=== PATIENT | male | born 1935 | race Caucasian/White ===

== ENCOUNTER → 2016-10-13 | Outpatient (CLI) | payer BC ==
[2016-10-13 09:49] LABS: ALT/SGPT 19 U/L (12-78); BLOOD UREA NITROGEN 11 mg/dl (7-18); BUN/CREATININE RATIO 11.3 (10-20); CALCIUM 8.9 mg/dl (8.5-10.1); CARBON DIOXIDE 28 mmol/L (21-32); CHLORIDE 105 mmol/L (98-107); CHOLESTEROL 165 mg/dl (0-200); GLUCOSE 89 mg/dl (70-99); POTASSIUM 3.8 mmol/L (3.5-5.1); SODIUM 142 mmol/L (136-145); TRIGLYCERIDES 59 mg/dl (0-150); VERY LOW DENSITY LIPOPROT CALC 12 mg/dl
[2016-10-13 09:52] LABS: ALB/GLOB RATIO 0.9 (0.9-2); ALKALINE PHOSPHATASE 78 U/L (45-117); AST/SGOT 18 U/L (15-37); CHOLESTEROL/HDL RATIO 2.3; HDL CHOLESTEROL 71 mg/dl; LDL CHOLESTEROL CALCULATED 82 mg/dl
== END | disposition home or self-care (01) ==
LOC: C.LAB1850 07:53
PROVIDERS: ATTEND Family Medicine
DX: I10 Essential (primary) hypertension (principal); E78.5 Hyperlipidemia, unspecified

== ENCOUNTER → 2017-07-21 | Outpatient (CLI) | payer BC ==
[2017-07-21 13:00] LABS: BLOOD UREA NITROGEN 8 mg/dl (7-18); BUN/CREATININE RATIO 8.4 (10-20); CALCIUM 8.8 mg/dl (8.5-10.1); CARBON DIOXIDE 29 mmol/L (21-32); CHLORIDE 106 mmol/L (98-107); CHOLESTEROL 153 mg/dl (0-200); CREATININE 0.99 mg/dl (0.60-1.40); GLUCOSE 88 mg/dl (70-99); POTASSIUM 4.5 mmol/L (3.5-5.1); SODIUM 141 mmol/L (136-145)
[2017-07-21 13:04] LABS: CHOLESTEROL/HDL RATIO 2.4; HDL CHOLESTEROL 64 mg/dl; LDL CHOLESTEROL CALCULATED 77 mg/dl; TRIGLYCERIDES 58 mg/dl (0-150); VERY LOW DENSITY LIPOPROT CALC 12 mg/dl
== END | disposition home or self-care (01) ==
LOC: C.LABBFT 07:43
PROVIDERS: ATTEND Family Medicine
DX: E78.5 Hyperlipidemia, unspecified (principal)

== ENCOUNTER → 2018-04-07 | Outpatient (CLI) | payer BC ==
[2018-04-07 13:06] LABS: ALBUMIN 3.4 gm/dl (3.4-5.0); ALKALINE PHOSPHATASE 69 U/L (45-117); ALT/SGPT 20 U/L (12-78); AST/SGOT 19 U/L (15-37); BLOOD UREA NITROGEN 13 mg/dl (7-18); CARBON DIOXIDE 29 mmol/L (21-32); CHOLESTEROL 147 mg/dl (0-200); CREATININE 0.98 mg/dl (0.60-1.40); GLUCOSE 81 mg/dl (70-99); LDL CHOLESTEROL CALCULATED 76 mg/dl; POTASSIUM 3.8 mmol/L (3.5-5.1); SODIUM 141 mmol/L (136-145); TOTAL PROTEIN 6.9 gm/dl (6.4-8.2)
== END | disposition home or self-care (01) ==
LOC: C.LABBFT 07:37
PROVIDERS: ATTEND Family Medicine
DX: Z00.00 Encounter for general adult medical examination without abnormal findings (principal)

== ENCOUNTER 2019-09-04 09:47 | Inpatient (IN) ==
[2019-09-04] MEDS ORDERED: ONDANSETRON INJ 2 MG/ML 2 ML VIAL IV STA (10:03)
[2019-09-04] MEDS ORDERED: SODIUM CHLORIDE 0.9% 1000ML 1,000 ML IV SCH (10:15)
--- NOTE | 2019-09-04 10:30 | Emergency Department Note ---
Entered by Pete Bobo acting as a scribe for Zane Danielson DO History of Present Illness General Chief complaint: Vomiting Stated complaint: VOMITING Time Seen by Provider: 09/04/19 10:00 Source: patient History of Present Illness Provider complaint: Vomiting Onset (ago): day(s) 1 Location: abdomen Severity: similar to prior episodes Pain Consistency: + intermittent Maximum Pain Intensity: 0 Relieved By: + none Associated symptoms: + loss of appetite and + nausea/vomiting; no chest pain, no fever/chills, no headaches and no shortness of breath The patient is an 83 year old male who presents to the Emergency Room with complaints of intermittent vomiting that started last night. The patient states the last episode occurred about a half hour before arrival. The patient reports that he has been having GI issues for the past couple of months and is complaining of abdominal pain at this time. The patient adds that he has not had much of an appetite and has had slight trouble swallowing. The patient states that he has not been able to have a colonoscopy due to recently being diagnosed with a LBBB. The patient denies any headache, chest pains, or shortness of breath. The patient does not have any cancer history. 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 0.5 mg-aleksandra-Zn tablet ascorbic acid (vitamin C) 500 mg 1 gm PO QAM tab 06/15/19 09/04/19 History tablet ykrwjzae-kxs-srpki acid 0.4 1 tab PO QAM tab 06/15/19 09/04/19 History mg-lycopene 300 mcg-lutein 250 mcg tablet omega-3 fatty acids 1,000 mg 1,000 mg PO DAILY cap 06/15/19 09/04/19 History capsule simvastatin 10 mg tablet 10 mg PO QPM #90 tab 06/25/19 09/04/19 Rx CPAP Machine #1 ea 07/13/19 08/13/19 Rx ondansetron HCl 4 mg tablet 4 mg PO QID PRN #20 tab 08/13/19 09/04/19 Rx triamterene-hydrochlorothiazid 0.5 tab PO QAM 09/04/19 09/04/19 History Allergies Allergy/AdvReac Type Severity Reaction Status Date / Time No Known Drug Allergies Allergy Verified 08/13/19 11:24 Past Med/Surg History Medical History Basal cell carcinoma Carpal tunnel syndrome Diverticulosis Surgical History H/O carpal tunnel repair S/P tonsillectomy Family History Father Cancer Social History Preferred Language: Armenian Communication Ability: Effective 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 and A total of 10 systems reviewed and were otherwise negative Physical Exam Vital Signs Vital Signs - 24 hr 09/04/19 09:54 Temperature 36.4 C L Temperature Source Oral Pulse Rate 97 H Respiratory Rate 20 Respiratory Effort / Characteristics Non-Labored Respiratory Depth Normal Respiratory Pattern Regular Blood Pressure 118/72 Blood Pressure Mean 87 Blood Pressure Position Sitting Pulse Oximetry 98 Oxygen Delivery Method Room Air Sepsis Recent Fever Within 48 Hours No Sepsis New/Unexplained Change in Mental Status No Sepsis Action Taken by Nursing No Action Required GENERAL: Patient is awake alert in no acute distress patient is resting comfortably and showing no signs of anxiety EYES: The conjunctivae are clear. The pupils are round and reactive. EARS, NOSE, MOUTH AND THROAT: The nose is without any evidence of any deformity. Mucous membranes are moist. Tongue is midline. NECK: The neck is nontender and supple. RESPIRATORY: Normal respiratory effort is noted there is no evidence of wheezing rhonchi or rales CARDIOVASCULAR: Regular rate and rhythm noted there no murmurs rubs or gallops normal S1 normal S2. GASTROINTESTINAL: The abdomen is mildly distended but soft. There is epigastric pain to palpation which is moderate. MUSCULOSKELETAL/EXTREMITIES: There is no evidence of gross deformity full range of motion is noted in the hips and shoulders. SKIN: There is no obvious evidence of any rash. There are no petechiae, pallor or cyanosis noted. NEUROLOGIC: Patient is awake alert and oriented x3. Course Course 1001: Past medical records reviewed. The patient was evaluated in room C08, and a complete history and physical examination were performed. 1210: I reevaluated the patient and he is resting in bed. I ordered an NG tube. 1212: I spoke to Dr. Juancarlos Palomo [facility] Hospitalist about the patient's case. She agreed to accept the patient for further evaluation. 1216: I spoke to Dr. Ivania NICHOLE about the patient's case. He agreed to be on consult. Consultations Consultation #1: I spoke to Dr. Juancarlos Palomo [facility] Hospitalist about the patient's case. She agreed to accept the patient for further evaluation. Time: 12:12 Consultation #2: I spoke to Dr. Ivania NICHOLE about the patient's case. He agreed to be on consult. Time: 12:16 Administered Medications Lactated Ringer's (Lr) 1,000 mls @ 80 mls/hr IV .[id number] MAYNOR Stop: 09/05/19 15:26 Last Infusion: 09/04/19 15:21 Dose: 0 mls/hr Documented by: [id number] Admin: 09/04/19 14:59 Dose: 80 mls/hr Documented by: [id number] Ioversol (Optiray 320 100ml) 93 ml IV ONCE PRN PRN Reason: Interaction Checking Stop: 09/08/19 11:35 Last Admin: 09/04/19 11:36 Dose: 93 ml Documented by: [id number] Discontinued Medications Sodium Chloride (Nss 1000ml) 1,000 mls @ 999 mls/hr IV .[id number] MAYNOR Stop: 09/04/19 11:15 Last Infusion: 09/04/19 11:47 Dose: 0 mls/hr Documented by: [id number] Admin: 09/04/19 10:23 Dose: 999 mls/hr Documented by: [id number] Famotidine (Pepcid 20mg Iv Push) 20 mg in 5 mls @ 2.5 mls/min IV NOW STA Stop: 09/04/19 12:18 Last Admin: 09/04/19 12:54 Dose: 2.5 mls/min Documented by: [id number] Piperacillin Sod/Tazobactam Sod (Zosyn) 4.5 gm in 120 mls @ 240 mls/hr IV NOW ONE Stop: 09/04/19 12:46 Last Infusion: 09/04/19 13:30 Dose: 0 mls/hr Documented by: [id number] Admin: 09/04/19 12:54 Dose: 240 mls/hr Documented by: [id number] Ondansetron HCl (Zofran) 4 mg IV NOW STA Stop: 09/04/19 10:04 Last Admin: 09/04/19 10:23 Dose: 4 mg Documented by: [id number] Medical Decision Making Differential Diagnosis Differential diagnoses includes but is not limited to gastritis, peptic ulcer disease, GERD, gallbladder disease, pancreatitis, small bowel obstruction, acute coronary syndrome, pericarditis, ischemic bowel, irritable bowel disease, irritable bowel syndrome, appendicitis, diverticulitis, malignancy, hernia, urinary tract infection, torsion, perforation, trauma, infectious. Medical Records Attestation: I reviewed the patient's medical records. Home Medications Current Medication List: was personally reviewed by me Laboratory Data Attestation: I reviewed the patient's lab results. Result diagrams: 09/04/19 10:20 09/04/19 10:20 Lab Results 09/04/19 09/04/19 09/04/19 Range/Units 10:20 10:20 10:20 WBC 10.28 (4.8-10.8) K/uL RBC 3.97 L (4.7-6.1) M/uL Hgb 12.1 L (14.0-18.0) g/dL Hct 36.4 L (42-52) % MCV 91.7 (80-100) fL MCH 30.5 (25-34) pg MCHC 33.2 (32-36) g/dL RDW Std Deviation 48.0 H (36.4-46.3) fL RDW Coeff of Vineet 14.2 (11.5-14.5) % Plt Count 321 (130-400) K/uL MPV 10.1 (7.4-10.4) fL Immature Gran % (Auto) 0.3 % Neut % (Auto) 73.8 % Lymph % (Auto) 15.1 % [place] % (Auto) 10.2 % Eos % (Auto) 0.4 % Baso % (Auto) 0.2 % Immature Gran # (Auto) 0.03 H (0.00-0.02) K/uL Neut # (Auto) 7.59 H (1.4-6.5) K/uL Lymph # (Auto) 1.55 (1.2-3.4) K/uL [place] # (Auto) 1.05 H (0.11-0.59) K/uL Eos # (Auto) 0.04 (0-0.5) K/uL Baso # (Auto) 0.02 (0-0.2) K/uL PT 10.9 (9.0-12.0) Seconds INR 1.1 (0.9-1.1) APTT 23.9 (21.0-31.0) Seconds PTT Ratio 0.9 Sodium 137 (136-145) mmol/L Potassium 3.6 (3.5-5.1) mmol/L Chloride 104 (98-107) mmol/L Carbon Dioxide 28 (21-32) mmol/L Anion Gap 5.0 (3-11) BUN 11 (7-18) mg/dl Creatinine 0.91 (0.6-1.4) mg/dl Est Cr Clr Drug Dosing 65.5 ml/min Est GFR ( Amer) 90.0 Est GFR (Non-Af Amer) 77.7 BUN/Creatinine Ratio 12.1 (10-20) Glucose 103 H (70-99) mg/dl Lactate (0.4-2.0) mmol/L Calcium 8.5 (8.5-10.1) mg/dl Phosphorus (2.5-4.9) mg/dl Magnesium (1.8-2.4) mg/dl Total Bilirubin 0.4 (0.2-1) mg/dl AST 13 L (15-37) U/L ALT 15 (12-78) U/L Alkaline Phosphatase 75 (45-117) U/L Troponin I < 0.015 (0-0.045) ng/ml Total Protein 7.2 (6.4-8.2) gm/dl Albumin 2.4 L (3.4-5.0) gm/dl Globulin 4.8 H (2.5-4.0) gm/dl Albumin/Globulin Ratio 0.5 L (0.9-2) Lipase 99 (73-393) U/L 09/04/19 09/04/19 Range/Units 10:20 10:20 WBC (4.8-10.8) K/uL RBC (4.7-6.1) M/uL Hgb (14.0-18.0) g/dL Hct (42-52) % MCV (80-100) fL MCH (25-34) pg MCHC (32-36) g/dL RDW Std Deviation (36.4-46.3) fL RDW Coeff of Vineet (11.5-14.5) % Plt Count (130-400) K/uL MPV (7.4-10.4) fL Immature Gran % (Auto) % Neut % (Auto) % Lymph % (Auto) % [place] % (Auto) % Eos % (Auto) % Baso % (Auto) % Immature Gran # (Auto) (0.00-0.02) K/uL Neut # (Auto) (1.4-6.5) K/uL Lymph # (Auto) (1.2-3.4) K/uL [place] # (Auto) (0.11-0.59) K/uL Eos # (Auto) (0-0.5) K/uL Baso # (Auto) (0-0.2) K/uL PT (9.0-12.0) Seconds INR (0.9-1.1) APTT (21.0-31.0) Seconds PTT Ratio Sodium (136-145) mmol/L Potassium (3.5-5.1) mmol/L Chloride (98-107) mmol/L Carbon Dioxide (21-32) mmol/L Anion Gap (3-11) BUN (7-18) mg/dl Creatinine (0.6-1.4) mg/dl Est Cr Clr Drug Dosing ml/min Est GFR ( Amer) Est GFR (Non-Af Amer) BUN/Creatinine Ratio (10-20) Glucose (70-99) mg/dl Lactate 1.0 (0.4-2.0) mmol/L Calcium (8.5-10.1) mg/dl Phosphorus 3.5 (2.5-4.9) mg/dl Magnesium 2.0 (1.8-2.4) mg/dl Total Bilirubin (0.2-1) mg/dl AST (15-37) U/L ALT (12-78) U/L Alkaline Phosphatase (45-117) U/L Troponin I (0-0.045) ng/ml Total Protein (6.4-8.2) gm/dl Albumin (3.4-5.0) gm/dl Globulin (2.5-4.0) gm/dl Albumin/Globulin Ratio (0.9-2) Lipase (73-393) U/L Imaging Data Radiologist's Impression: Radiology results as stated below per my review and the radiologist's interpretation: XR chest 1V portable CLINICAL HISTORY: pain dyspnea COMPARISON STUDY: 03/13/2019 FINDINGS: Mild stable cardiomegaly. Diaphragms are smooth. Lungs are considered clear. There is a component of emphysematous change. IMPRESSION: Chronic and emphysematous change. No acute process. ACT 112: Negative or not required by law. The above report was generated using voice recognition software. It may contain grammatical, syntax or spelling errors. Electronically signed by: Alber Smart M.D. 09/04/2019 10:[address] abd pelvis IV con only CT DOSE: 630.68 mGy.cm HISTORY: Nausea. Vomiting. vomiting TECHNIQUE: Multiaxial CT images of the abdomen and pelvis were performed following the use of intravenous contrast. A dose lowering technique was utilized adhering to the principles of ALARA. COMPARISON STUDY: 03/30/2019 FINDINGS: Lung bases are considered clear. The liver spleen and pancreas appear unremarkable. There are several scattered calcified granulomas throughout both liver as well as spleen. Considerable distention of the stomach. This appears to relate to what is potentially soft tissue mass-like changes involving the gastric antrum and/or proximal aspect descending aspect of the duodenal sweep. Peptic ulcer disease is considered. There is also suggestion of a 3 mm calculus distal aspect, bile duct. Findings of progressive infiltrative change of the fat surrounding the duodenal bulb. There is a possibility this represents progressive duodenitis. Endoscopic evaluation is suggested. Moderate atrophy of the pancreas. Bowel pattern overall is considered nonobstructive. Generalized atherosclerotic change and ectasia of the abdominal aorta as well as iliac vasculature considered similar. Mild chronic bladder wall thickening. The pelvic bowel pattern is considered nonobstructive. No evidence for abscess collection or obstructive change within that region. IMPRESSION: 1. Gastric distention slightly increased from the prior study. 2. Soft tissue prominence as well as some progressive periduodenal infiltrative change raising the possibility of progressive duodenitis versus possibility of a neoplastic and/or obstructing type process. 3. Potential 3 mm calculus distal common bile duct consistent with choledocholithiasis. 4. Endoscopic evaluation of the upper gastrointestinal tract is suggested. MRCP may also be of initial diagnostic assistance. ACT 112: Negative or not required by law. The above report was generated using voice recognition software. It may contain grammatical, syntax or spelling errors. Electronically signed by: Alber Smart M.D. 09/04/2019 11:57 AM ECG Data Attestation: I personally reviewed and interpreted this ECG as follows: Indication: + abdominal pain Rate (beats per minute): 85 Rhythm: + sinus rhythm ECG Intervals/blocks: + Left bundle branch block ECG Findings: + PACs Comparison ECG Date: no prior available Blood Pressure Blood Pressure Findings: Low blood pressure Blood Pressure Disposition: further management by hospitalist MDM Narrative The patient is an 83-year-old male who presented to the emergency department for upper abdominal complaints. The patient has had nausea and vomiting. He is also had very significant weight loss over the last [address] ates that he lost approximately 40 pounds. He was seen by his primary care physician and was scheduled for a GI work-up but unfortunately the patient has an abnormal EKG so he required further cardiac work-up prior to GI work-up. He presents emergency department today with worsening symptoms of upper abdominal pain as well as nausea vomiting. I discussed patient's laboratory and radiographic studies with him. He was treated with IV fluids and IV antiemetics. He was found to have signs of possible gastric outlet obstruction with a proximal small bowel mass versus inflammation. He was treated with IV antibiotics and IV H2 blockers. An NG tube was placed with a significant amount of return. I discussed his case with the on-call [facility] hospitalist group as well as the patient's primary GI physician. They have agreed to evaluate the patient in the emergency department for further management and disposition. Impression & Plan Gastric outlet obstruction, Small bowel mass, Vomiting Discharge Plan Visit Data *Final* Discharge Date/Time: 09/04/19 14:01 Chief Complaint: Vomiting Stated Complaint: VOMITING ED Provider: Zane Danielson Discharge Problem: Gastric outlet obstruction, Small bowel mass, Vomiting Patient Disposition: Admitted As Inpatient Discharge Instructions Interventions: ED Discharge Assessment Last Done: 09/04/19 14:01 Discharge Problem: Vomiting Qualifiers: Vomiting type: unspecified Vomiting Intractability: non-intractable Nausea presence: with nausea Qualified Code(s): R11.2 - Nausea with vomiting, unspecified The scribe's documentation has been prepared under my direction and personally reviewed by me in its entirety. I confirm that the note above accurately reflects all work, treatment, procedures, and medical decision making performed by me.
[2019-09-04 10:32] LABS: Basophils # (auto) 0.02 K/uL (0-0.2); Basophils % (auto) 0.2 %; Eosinophils # (auto) 0.04 K/uL (0-0.5); Eosinophils % (auto) 0.4 %; Hematocrit (blood only) 36.4 % (42-52); Hemoglobin 12.1 g/dL (14.0-18.0); Immature Granulocytes # (auto) 0.03 K/uL (0.00-0.02); Immature Granulocytes % (auto) 0.3 %; Lymphocytes # (auto) 1.55 K/uL (1.2-3.4); Lymphocytes % (auto) 15.1 %; Mean Corpuscular Hemoglobin 30.5 pg (25-34); Mean Corpuscular Hgb Conc 33.2 g/dL (32-36); Mean Corpuscular Volume 91.7 fL (80-100); Mean Platelet Volume 10.1 fL (7.4-10.4); Monocytes # (auto) 1.05 K/uL (0.11-0.59); Monocytes % (auto) 10.2 %; Neutrophils # (auto) 7.59 K/uL (1.4-6.5); Neutrophils % (auto) 73.8 %; Platelet Count 321 K/uL (130-400); RDW Coefficient of Variation 14.2 % (11.5-14.5); Red Blood Count 3.97 M/uL (4.7-6.1); White Blood Count 10.28 K/uL (4.8-10.8)
--- NOTE | 2019-09-04 10:37 | XRay Report ---
XR chest 1V portable CLINICAL HISTORY: pain dyspnea COMPARISON STUDY: 03/13/2019 FINDINGS: Mild stable cardiomegaly. Diaphragms are smooth. Lungs are considered clear. There is a com ponent of emphysematous change. IMPRESSION: Chronic and emphysematous change. No acute process. ACT 112: Negative or not required by law. The above report was generated using voice recognition software. It may contain grammatical, syntax or spelling errors. Electronically signed by: Alber Smart M.D. 09/04/2019 10:36 AM
[2019-09-04 10:49] LABS: INR 1.1 (0.9-1.1); Partial Thromboplastin Ratio 0.9; Partial Thromboplastin Time 23.9 Seconds (21.0-31.0); Prothrombin Time 10.9 Seconds (9.0-12.0)
[2019-09-04 10:51] LABS: Alanine Aminotransferase 15 U/L (12-78); Albumin Level 2.4 gm/dl (3.4-5.0); Aspartate Aminotransferase 13 U/L (15-37); BUN Creatinine Ratio 12.1 (10-20); Blood Urea Nitrogen 11 mg/dl (7-18); Calcium 8.5 mg/dl (8.5-10.1); Carbon Dioxide 28 mmol/L (21-32); Chloride 104 mmol/L (98-107); Creatinine Clr Calc Pharmacy 65.5 ml/min; Est GFR (Non-African American) 77.7; Glucose 103 mg/dl (70-99); Lipase 99 U/L (73-393); Potassium 3.6 mmol/L (3.5-5.1); Sodium 137 mmol/L (136-145)
[2019-09-04 10:56] LABS: Albumin Globulin Ratio 0.5 (0.9-2); Alkaline Phosphatase 75 U/L (45-117); Bilirubin,Total 0.4 mg/dl (0.2-1); Globulin 4.8 gm/dl (2.5-4.0); Total Protein 7.2 gm/dl (6.4-8.2); Troponin I < 0.015 ng/ml (0-0.045)
[2019-09-04] MEDS ORDERED: IOVERSOL 100ml IV PRN (11:36)
--- NOTE | 2019-09-04 11:58 | CT Scan Report ---
CT abd pelvis IV con only CT DOSE: 630.68 mGy.cm HISTORY: Nausea. Vomiting. vomiting TECHNIQUE: Multiaxial CT images of the abdomen and pelvis were performed following the use of intrave nous contrast. A dose lowering technique was utilized adhering to the principles of ALARA. COMPARISON STUDY: 03/30/2019 FINDINGS: Lung bases are considered clear. The liver spleen and pancreas appear unremarkable. There a re several scattered calcified granulomas throughout both liver as well as spleen. Considerable distention of the stomach. This appears to relate to what is potentially soft tissue mas s-like changes involving the gastric antrum and/or proximal aspect descending aspect of the duodenal sweep. Peptic ulcer disease is considered. There is also suggestion of a 3 mm calculus distal aspect, bile duct. Findings of progressive infiltrative change of the fat surrounding the duodenal bulb. There is a poss ibility this represents progressive duodenitis. Endoscopic evaluation is suggested. Moderate atrophy of the pancreas. Bowel pattern overall is considered nonobstructive. Generalized atherosclerotic change and ectasia of the abdominal aorta as well as iliac vasculature co nsidered similar. Mild chronic bladder wall thickening. The pelvic bowel pattern is considered nonobs tructive. No evidence for abscess collection or obstructive change within that region. IMPRESSION: 1. Gastric distention slightly increased from the prior study. 2. Soft tissue prominence as well as some progressive periduodenal infiltrative change raising the po ssibility of progressive duodenitis versus possibility of a neoplastic and/or obstructing type proces s. 3. Potential 3 mm calculus distal common bile duct consistent with choledocholithiasis. 4. Endoscopic evaluation of the upper gastrointestinal tract is suggested. MRCP may also be of initia l diagnostic assistance. ACT 112: Negative or not required by law. The above report was generated using voice recognition software. It may contain grammatical, syntax or spelling errors. Electronically signed by: Alber Smart M.D. 09/04/2019 11:57 AM
[2019-09-04] MEDS ORDERED: FAMOTIDINE 20MG IV PUSH 20 MG/5 ML SYR IV STA (12:17)
[2019-09-04] MEDS ORDERED: PIPERACILLIN/TAZOBACTAM 4.5 GM/120 ML BAG IV ONE (12:17)
[2019-09-04] MEDS ORDERED: PIPERACILL/TAZOBAC CONSULT ACTIVE PRN (12:17)
--- NOTE | 2019-09-04 13:14 | History & Physical Report ---
Date of Service September 04, 2019 Assessment & Plan (1) Gastric outlet obstruction: 83-year-old male presenting with 2 to 3 months of dysphasia to solids, nausea/vomiting postprandial as well as a 40 to [address] of the abdomen revealed gastric distention as well as a soft tissue prominence causing obstruction in the duodenum concerning for duodenitis versus neoplastic process. Admit to medical floor N.p.o. NG tube to low intermittent suction for gastric decompression Aspiration precautions Protonix 40 mg IV twice daily Gastroenterology consultation appreciated Plan for EGD in a.m. in the operating room with intubation for airway protection Present on Admission?: Yes (2) Dysphagia: Most likely secondary to gastric/duodenal obstruction from mass/inflammation or ulcer as described above. N.p.o. for now Aspiration precautions NG tube to low intermittent suction EGD for the a.m. (3) Choledocholithiasis: MRCP performed which showed cholelithiasis with choledocholithiasis and extrahepatic biliary ductal dilatation. No definite duodenal or pancreatic mass. Patient is afebrile, hemodynamically stable, nontoxic in appearance. No leukocytosis, LFTs are within normal range without suggestion of obstruction. Abdominal exam is benign. GI consultation as above EGD for a.m. Repeat LFTs with a.m. labs Present on Admission?: Yes (4) HTN (hypertension): Blood pressure stable. Presently 131/59. Will hold triamterene/HCTZ for now Continue to monitor blood pressure Present on Admission?: Yes (5) SRIKANTH (obstructive sleep apnea): Chronic. Stable. CPAP nightly Present on Admission?: Yes (6) Anemia: Patient with normochromic/normocytic anemia with Hgb = 12.1, HCT = 36.4. Possibly secondary to underlying GI process Continue to monitor CBC in a.m. (7) Hyperlipidemia: Chronic. Will hold simvastatin and omega-3 for now F/E/NLR at 80 mL/h x 2 bags, electrolytes within normal range, n.p.o. for now ProphylaxisProtonix 40 mg IV twice daily, SCDs to bilateral lower extremities. No chemoprophylaxis for now as patient to have procedure tomorrow [place] per discussion with patient Dispositionadmit to medical floor History of Present Illness Chief Complaint: Abdominal pain Primary Care Provider: Annia Dyer MD Alber Guzmán is a pleasant 83-year-old male with history of hypertension/hyperlipidemia/diverticulosis presenting today with abdominal pain/nausea/vomiting. Patient's complaints have been ongoing for the last 2 to 3 months with dysphagia to solids as well as frequent postprandial vomiting and regurgitation of undigested food. He reports a weight loss of approximately 40 - 50 pounds over the last 3 months. He had a Cologuard that was recently positive and was scheduled to have a colonoscopy performed by Dr. Redd on September 07. He denies any melena or hematochezia. Denies hematemesis. He reports occasionally feeling an area of fullness and firmness in his abdomen. Today he presents with bandlike pain across his upper abdomen as well as bloating. He has been unable to tolerate oral intake. He also complains of constipation and food tasting differently. No complaints of chest pain/shortness of breath/fever/chills/diarrhea. Last colonoscopy was in 2007 with polyp removal. ER course: Pepcid, Zofran, Zosyn, normal saline Allergies Allergy/AdvReac Type Severity Reaction Status Date / Time No Known Drug Allergies Allergy Verified 08/13/19 11:24 Home Medications Home Medications Medication Instructions Recorded Confirmed Type calcium carb 300 mg-D3 800 1 - 2 tab PO AMPM tab 06/13/19 09/04/19 History unit-mag ox 25 mg-copy coordinator 0.5 mg-aleksandra-Zn tablet ascorbic acid (vitamin C) 500 mg 1 gm PO QAM tab 06/15/19 09/04/19 History tablet tmixligu-gxj-fsiat acid 0.4 1 tab PO QAM tab 06/15/19 09/04/19 History mg-lycopene 300 mcg-lutein 250 mcg tablet omega-3 fatty acids 1,000 mg 1,000 mg PO DAILY cap 06/15/19 09/04/19 History capsule simvastatin 10 mg tablet 10 mg PO QPM #90 tab 06/25/19 09/04/19 Rx CPAP Machine #1 ea 07/13/19 08/13/19 Rx ondansetron HCl 4 mg tablet 4 mg PO QID PRN #20 tab 08/13/19 09/04/19 Rx triamterene-hydrochlorothiazid 0.5 tab PO QAM 09/04/19 09/04/19 History Past Med/Surg History Family History Father Cancer Social History Preferred Language: Greek Communication Ability: Effective Brake [employer] Required: No Beliefs That Will Affect Care: None marital status: Current Living Situation: Spouse current occupational status: retired Other Information That Helps Us Care for You: No Feels Safe at Home: Yes Safety Concerns: Feels Safe At This Time Smoking Status: Former smoker Do You Dip or Chew Tobacco: No ; Second Hand Exposure: No ; Tobacco Cessation Education Requested by Patient: No Hx Alcohol Use: No Hx Substance Use: No Seatbelt Use: always Review of Systems Review of Systems: All systems reviewed & are unremarkable except as noted in HPI & below Physical Exam Physical Exam: General: patient resting comfortably, NAD, non-toxic in appearance, AA&O x 4 Skin: warm, dry, intact, no rashes or lesions HEENT: NC/AT, PERRL, EOMI, anicteric sclera, conjunctiva without injection, external ear normal to inspection and nontender, nares patent, moist mucus membranes, dentition intact, no oropharyngeal lesions, neck supple, trachea midline, no LAD, no thyromegaly, no JVD, NG tube in place to low intermittent suction with one filled canister of liquid output Heart: +S1/S2, regular with frequent ectopy, no m/r/g Lungs: equal air entry bilaterally, no rales/rhonchi/wheezes Abd: +BS, soft, NT/ND, no masses/organomegaly/ascites Ext: warm, 2+ pulses in UE/LE bilaterally, no clubbing/cyanosis, trace pitting edema of bilateral lower extremities Neuro: nonfocal, patient AA&O x 4, speech intact, no facial droop, moving all extremities on command with equal strength 5/5 Results & Data Vital Signs (Past 12 Hours) Vital Signs Temp Pulse Resp BP Pulse Ox 09/04/19 09:54 36.4 C L 97 H 20 118/72 98 Laboratory Results Lab Results 09/04/19 09/04/19 09/04/19 Range/Units 10:20 10:20 10:20 WBC 10.28 (4.8-10.8) K/uL RBC 3.97 L (4.7-6.1) M/uL Hgb 12.1 L (14.0-18.0) g/dL Hct 36.4 L (42-52) % MCV 91.7 (80-100) fL MCH 30.5 (25-34) pg MCHC 33.2 (32-36) g/dL RDW Std Deviation 48.0 H (36.4-46.3) fL RDW Coeff of Vineet 14.2 (11.5-14.5) % Plt Count 321 (130-400) K/uL MPV 10.1 (7.4-10.4) fL Immature Gran % (Auto) 0.3 % Neut % (Auto) 73.8 % Lymph % (Auto) 15.1 % Butler % (Auto) 10.2 % Eos % (Auto) 0.4 % Baso % (Auto) 0.2 % Immature Gran # (Auto) 0.03 H (0.00-0.02) K/uL Neut # (Auto) 7.59 H (1.4-6.5) K/uL Lymph # (Auto) 1.55 (1.2-3.4) K/uL Butler # (Auto) 1.05 H (0.11-0.59) K/uL Eos # (Auto) 0.04 (0-0.5) K/uL Baso # (Auto) 0.02 (0-0.2) K/uL PT 10.9 (9.0-12.0) Seconds INR 1.1 (0.9-1.1) APTT 23.9 (21.0-31.0) Seconds PTT Ratio 0.9 Sodium 137 (136-145) mmol/L Potassium 3.6 (3.5-5.1) mmol/L Chloride 104 (98-107) mmol/L Carbon Dioxide 28 (21-32) mmol/L Anion Gap 5.0 (3-11) BUN 11 (7-18) mg/dl Creatinine 0.91 (0.6-1.4) mg/dl Est Cr Clr Drug Dosing 65.5 ml/min Est GFR ( Amer) 90.0 Est GFR (Non-Af Amer) 77.7 BUN/Creatinine Ratio 12.1 (10-20) Glucose 103 H (70-99) mg/dl Lactate (0.4-2.0) mmol/L Calcium 8.5 (8.5-10.1) mg/dl Phosphorus (2.5-4.9) mg/dl Magnesium (1.8-2.4) mg/dl Total Bilirubin 0.4 (0.2-1) mg/dl AST 13 L (15-37) U/L ALT 15 (12-78) U/L Alkaline Phosphatase 75 (45-117) U/L Troponin I < 0.015 (0-0.045) ng/ml Total Protein 7.2 (6.4-8.2) gm/dl Albumin 2.4 L (3.4-5.0) gm/dl Globulin 4.8 H (2.5-4.0) gm/dl Albumin/Globulin Ratio 0.5 L (0.9-2) Lipase 99 (73-393) U/L 09/04/19 09/04/19 Range/Units 10:20 10:20 WBC (4.8-10.8) K/uL RBC (4.7-6.1) M/uL Hgb (14.0-18.0) g/dL Hct (42-52) % MCV (80-100) fL MCH (25-34) pg MCHC (32-36) g/dL RDW Std Deviation (36.4-46.3) fL RDW Coeff of Vineet (11.5-14.5) % Plt Count (130-400) K/uL MPV (7.4-10.4) fL Immature Gran % (Auto) % Neut % (Auto) % Lymph % (Auto) % Butler % (Auto) % Eos % (Auto) % Baso % (Auto) % Immature Gran # (Auto) (0.00-0.02) K/uL Neut # (Auto) (1.4-6.5) K/uL Lymph # (Auto) (1.2-3.4) K/uL Butler # (Auto) (0.11-0.59) K/uL Eos # (Auto) (0-0.5) K/uL Baso # (Auto) (0-0.2) K/uL PT (9.0-12.0) Seconds INR (0.9-1.1) APTT (21.0-31.0) Seconds PTT Ratio Sodium (136-145) mmol/L Potassium (3.5-5.1) mmol/L Chloride (98-107) mmol/L Carbon Dioxide (21-32) mmol/L Anion Gap (3-11) BUN (7-18) mg/dl Creatinine (0.6-1.4) mg/dl Est Cr Clr Drug Dosing ml/min Est GFR ( Amer) Est GFR (Non-Af Amer) BUN/Creatinine Ratio (10-20) Glucose (70-99) mg/dl Lactate 1.0 (0.4-2.0) mmol/L Calcium (8.5-10.1) mg/dl Phosphorus 3.5 (2.5-4.9) mg/dl Magnesium 2.0 (1.8-2.4) mg/dl Total Bilirubin (0.2-1) mg/dl AST (15-37) U/L ALT (12-78) U/L Alkaline Phosphatase (45-117) U/L Troponin I (0-0.045) ng/ml Total Protein (6.4-8.2) gm/dl Albumin (3.4-5.0) gm/dl Globulin (2.5-4.0) gm/dl Albumin/Globulin Ratio (0.9-2) Lipase (73-393) U/L Diagnostic Findings CT abd pelvis IV con only CT DOSE: 630.68 mGy.cm HISTORY: Nausea. Vomiting. vomiting TECHNIQUE: Multiaxial CT images of the abdomen and pelvis were performed following the use of intravenous contrast. A dose lowering technique was utilized adhering to the principles of ALARA. COMPARISON STUDY: 03/30/2019 FINDINGS: Lung bases are considered clear. The liver spleen and pancreas appear unremarkable. There are several scattered calcified granulomas throughout both liver as well as spleen. Considerable distention of the stomach. This appears to relate to what is potentially soft tissue mass-like changes involving the gastric antrum and/or proximal aspect descending aspect of the duodenal sweep. Peptic ulcer disease is considered. There is also suggestion of a 3 mm calculus distal aspect, bile duct. Findings of progressive infiltrative change of the fat surrounding the duodenal bulb. There is a possibility this represents progressive duodenitis. Endoscopic evaluation is suggested. Moderate atrophy of the pancreas. Bowel pattern overall is considered nonobstructive. Generalized atherosclerotic change and ectasia of the abdominal aorta as well as iliac vasculature considered similar. Mild chronic bladder wall thickening. The pelvic bowel pattern is considered nonobstructive. No evidence for abscess collection or obstructive change within that region. IMPRESSION: 1. Gastric distention slightly increased from the prior study. 2. Soft tissue prominence as well as some progressive periduodenal infiltrative change raising the possibility of progressive duodenitis versus possibility of a neoplastic and/or obstructing type process. 3. Potential 3 mm calculus distal common bile duct consistent with choledocholithiasis. 4. Endoscopic evaluation of the upper gastrointestinal tract is suggested. MRCP may also be of initial diagnostic assistance. ACT 112: Negative or not required by law. The above report was generated using voice recognition software. It may contain grammatical, syntax or spelling errors. Electronically signed by: Alber Smart M.D. 09/04/2019 11:57 AM Dictated: 09/04/19 1144 Transcribed: 09/04/19 1144 XR chest 1V portable CLINICAL HISTORY: pain dyspnea COMPARISON STUDY: 03/13/2019 FINDINGS: Mild stable cardiomegaly. Diaphragms are smooth. Lungs are considered clear. There is a component of emphysematous change. IMPRESSION: Chronic and emphysematous change. No acute process. ACT 112: Negative or not required by law. The above report was generated using voice recognition software. It may contain grammatical, syntax or spelling errors. Electronically signed by: Alber Smart M.D. 09/04/2019 10:36 AM Dictated: 09/04/196 Transcribed: 09/04/191035 MR MRCP HISTORY: 83 years-old Male ?choledocholithiasis follow-up study in a patient with acute vomiting and upper abdominal pain COMPARISON: CT abdomen and pelvis of same day and also 03/30/2019 TECHNIQUE: MRCP was obtained according to institutional protocol without the use of IV contrast. FINDINGS: Small pericardial effusion. Heart is upper limits of normal in size. Lung bases appear unremarkable. Mild nonspecific bilateral perinephric stranding. 11 mm exophytic T2 hyperintense lesion of the posterior interpolar left kidney suggest probable cyst with a few additional subcentimeter T2 hyperintense foci of the inferior pole left kidney, too small to characterize. No hydronephrosis. Soft tissue nodule along the posterior inferior aspect of the spleen measuring 9 mm is again noted and is indeterminate. Aorta and IVC are unremarkable. Mild generalized pancreatic atrophy. Mild prominence of the pancreatic duct at the level of the pancreatic head measures up to 4 mm. No evidence of pancreatic divisum. Inflammatory stranding surrounds the pancreatic head and uncinate process. Unremarkable liver. Mildly contracted gallbladder with cholelithiasis noted within the gallbladder fundus. Common bile duct is dilated measuring up to 1.2 cm transversely. 6 mm filling defects within the distal common bile duct compatible with choledocholithiasis. Mild intrahepatic biliary ductal dilation of the left hepatic lobe. Irregular circumferential wall thickening of the duodenum with a large inflamed duodenal diverticulum measuring up to 6.0 cm transversely. Distended fluid-filled stomach and proximal duodenum. No definitive obstructing mass identified. Soft tissues are unremarkable. IMPRESSION: 1. Cholelithiasis with choledocholithiasis and extrahepatic biliary ductal dilation as above. 2. Large inflamed duodenal diverticulum with surrounding inflammatory stranding is suggestive of acute duodenitis and pancreatitis. GI follow-up recommended. 3. The large duodenal diverticulum appears to have increased in size from 03/30/2019 and may be secondary to the aforementioned gastric and duodenal distention. No definite duodenal or pancreatic mass identified. Correlation with follow-up endoscopy may be considered. ACT 112: Negative or not required by law. The above report was generated using voice recognition software. It may contain grammatical, syntax or spelling errors. Electronically signed by: Ben Wallace M.D. 09/04/2019 4:15 PM Dictated: 09/04/19 1557 Transcribed: 09/04/191556 ECG Additional Comments: Study shows sinus rhythm at 85 bpm with frequent PACs, left bundle branch block, QRS = 136, QTc = 514 Code Status & VTE Plan Code Status Full code VTE Prophylaxis Plan VTE Prophylaxis will be ordered: Yes PG Care Time/CCT Total # of Minutes Spent Total Time Spent with Patient: Total time spent is greater than 50% in coordination of care (as documented) at patient's floor/unit and/or counseling patient: (1) HTN (hypertension) Hypertension type: essential hypertension Qualified Code(s): I10 - Essential (primary) hypertension (2) Dysphagia Dysphagia type: esophageal phase Qualified Code(s): R13.10 - Dysphagia, unspecified (3) Hyperlipidemia Hyperlipidemia type: unspecified Qualified Code(s): E78.5 - Hyperlipidemia, unspecified (4) Anemia Anemia type: unspecified type Qualified Code(s): D64.9 - Anemia, unspecified
[2019-09-04] MEDS ORDERED: bisacodyL 10 MG SUPP PR PRN (14:27)
[2019-09-04] MEDS ORDERED: ONDANSETRON INJ 2 MG/ML 2 ML VIAL IV PRN (14:27)
--- NOTE | 2019-09-04 14:31 | Consultation Report ---
DATE OF CONSULTATION: 09/04/2019 GASTROINTESTINAL CONSULT NOTE REASON FOR CONSULTATION: Gastric outlet obstruction. HISTORY OF PRESENT ILLNESS: The patient is an 83-year-old who has noticed a decrease in appetite and has lost 50 pounds over the last 3 months. He was seen by his primary care physician, had a positive FIT test and was scheduled for colonoscopy, but it was postponed due to new-onset left bundle branch block. The patient presents to the hospital today after vomiting last night and earlier today and unable to keep anything down. He underwent a CAT scan in the ER and was noted to have a markedly distended stomach filled with fluid as well as a constricting mass in the duodenum. There was no obvious mass in the pancreas. The patient denies use of aspirin or nonsteroidals or significant abdominal pain at this point. Hospitalization was advised. A nasogastric tube has been placed to decompress his stomach and he has had a liter and a half of fluid removed so far. PAST MEDICAL HISTORY: The patient has sleep apnea and uses CPAP. He has hyperlipidemia and hypertension. MEDICATIONS: Per list. ALLERGIES: None. FAMILY HISTORY: Noncontributory. SOCIAL HISTORY: The patient is and lives with his . He is a former smoker, does not drink any alcohol. REVIEW OF SYSTEMS: Remarkable for weight loss and heme-positive stool. PHYSICAL EXAMINATION: GENERAL: The patient is sitting up in bed in the Emergency Room in no acute distress. He has a nasogastric tube draining feculent-looking material. VITAL SIGNS: Blood pressure is 118/72, pulse 97, temperature is 36.4, O2 saturation is 98% on room air. ABDOMEN: Shows a little bit of tenderness in the right upper abdomen. No masses appreciated. LUNGS: Clear. HEART: Showed a normal S1 and S2. Regular rate and rhythm. IMPRESSION AND PLAN: The patient has a significant gastric distention from a duodenal obstruction. I reviewed the films with the radiologist and it appears that he may have it either a tumor or a penetrating ulcer in this area with edema that is causing this obstruction. I plan on decompressing with a nasogastric tube overnight and scheduling him for an endoscopy tomorrow in the operating room with intubation to protect his airway from aspiration. We will hopefully be able to visualize the lesion in the duodenum and take pictures and biopsies. Further recommendations will be based on the endoscopic findings. In the meantime, we can start him on IV Protonix twice a day.
[2019-09-04] MEDS: LACTATED RINGER'S 1,000 ML IV SCH (14:59)
[2019-09-04 15:07] LABS: Phosphorus 3.5 mg/dl (2.5-4.9)
--- NOTE | 2019-09-04 16:16 | Magnetic Resonance Report ---
MR MRCP HISTORY: 83 years-old Male ?choledocholithiasis follow-up study in a patient with acute vomiting and upper abdominal pain COMPARISON: CT abdomen and pelvis of same day and also 03/30/2019 TECHNIQUE: MRCP was obtained according to institutional protocol without the use of IV contrast. FINDINGS: Small pericardial effusion. Heart is upper limits of normal in size. Lung bases appear unremarkable. Mild nonspecific bilateral perinephric stranding. 11 mm exophytic T2 hyperintense lesion of the poste rior interpolar left kidney suggest probable cyst with a few additional subcentimeter T2 hyperintense foci of the inferior pole left kidney, too small to characterize. No hydronephrosis. Soft tissue nod ule along the posterior inferior aspect of the spleen measuring 9 mm is again noted and is indetermin ate. Aorta and IVC are unremarkable. Mild generalized pancreatic atrophy. Mild prominence of the panc reatic duct at the level of the pancreatic head measures up to 4 mm. No evidence of pancreatic divisu m. Inflammatory stranding surrounds the pancreatic head and uncinate process. Unremarkable liver. Mildly contracted gallbladder with cholelithiasis noted within the gallbladder fu ndus. Common bile duct is dilated measuring up to 1.2 cm transversely. 6 mm filling defects within th e distal common bile duct compatible with choledocholithiasis. Mild intrahepatic biliary ductal dilat ion of the left hepatic lobe. Irregular circumferential wall thickening of the duodenum with a large inflamed duodenal diverticulum measuring up to 6.0 cm transversely. Distended fluid-filled stomach an d proximal duodenum. No definitive obstructing mass identified. Soft tissues are unremarkable. IMPRESSION: 1. Cholelithiasis with choledocholithiasis and extrahepatic biliary ductal dilation as above. 2. Large inflamed duodenal diverticulum with surrounding inflammatory stranding is suggestive of acut e duodenitis and pancreatitis. GI follow-up recommended. 3. The large duodenal diverticulum appears to have increased in size from 03/30/2019 and may be second brown to the aforementioned gastric and duodenal distention. No definite duodenal or pancreatic mass id entified. Correlation with follow-up endoscopy may be considered. ACT 112: Negative or not required by law. The above report was generated using voice recognition software. It may contain grammatical, syntax o r spelling errors. Electronically signed by: Ben Wallace M.D. 09/04/2019 4:15 PM
[2019-09-04] MEDS ORDERED: FAMOTIDINE 20 MG in SYRINGE 3 ML IV SCH (21:00)
[2019-09-04] MEDS: PANTOprazole 40 MG in SYRINGE 0 ML IV SCH (21:41)
[2019-09-04 21:57] LABS: Appearance Urine Clear (Clear); Bacteria Urine Automated Negative (Negative); Bilirubin Urine Negative (Negative); Blood Urine Negative (Negative); Color Urine Dark Yellow; Epithelial Cell Urine Auto 0-5 /lpf (0-5); Glucose Urine UA Negative (Negative); Ketones Urine 1+ (Negative); Leukocyte Esterase Urine Negative (Negative); Nitrite Urine Negative (Negative); RBC Urine Automated 0-4 /hpf (0-4); Specific Gravity Urine > 1.045 (1.000-1.030); Urobilinogen Urine Negative (Negative); pH Urine 7.5 (4.5-7.5)
[2019-09-04 21:59] LABS: Protein Urine Negative (Negative); Sulfosalicylic Acid Urine Negative (Negative)
[2019-09-05] MEDS: LACTATED RINGER'S 1,000 ML IV SCH ×2 (04:44→18:25)
[2019-09-05 06:40] LABS: Basophils # (auto) 0.02 K/uL (0-0.2); Basophils % (auto) 0.2 %; Eosinophils # (auto) 0.09 K/uL (0-0.5); Eosinophils % (auto) 1.1 %; Hematocrit (blood only) 35.3 % (42-52); Hemoglobin 11.7 g/dL (14.0-18.0); Immature Granulocytes # (auto) 0.01 K/uL (0.00-0.02); Immature Granulocytes % (auto) 0.1 %; Lymphocytes # (auto) 1.49 K/uL (1.2-3.4); Lymphocytes % (auto) 18.1 %; Mean Corpuscular Hemoglobin 30.5 pg (25-34); Mean Corpuscular Hgb Conc 33.1 g/dL (32-36); Mean Corpuscular Volume 91.9 fL (80-100); Mean Platelet Volume 10.7 fL (7.4-10.4); Monocytes # (auto) 0.94 K/uL (0.11-0.59); Monocytes % (auto) 11.4 %; Neutrophils # (auto) 5.67 K/uL (1.4-6.5); Neutrophils % (auto) 69.1 %; Platelet Count 283 K/uL (130-400); RDW Coefficient of Variation 14.5 % (11.5-14.5); RDW Standard Deviation 48.8 fL (36.4-46.3); Red Blood Count 3.84 M/uL (4.7-6.1); White Blood Count 8.22 K/uL (4.8-10.8)
[2019-09-05 07:12] LABS: Albumin Level 2.1 gm/dl (3.4-5.0); Bilirubin Direct 0.2 mg/dl (0-0.2); Calcium 8.3 mg/dl (8.5-10.1); Est GFR (African American) 91.6; Est GFR (Non-African American) 79.1; Potassium 3.8 mmol/L (3.5-5.1)
[2019-09-05 07:17] LABS: Bilirubin,Total 0.4 mg/dl (0.2-1); Total Protein 6.3 gm/dl (6.4-8.2)
--- NOTE | 2019-09-05 07:41 | Anesthesiology Consultation ---
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.5 mg-aleksandra-Zn tablet ascorbic acid (vitamin C) 500 mg 1 gm PO QAM tab 06/15/19 09/04/19 09/03/19 tablet clzpdgzk-nqs-bvnbp acid 0.4 1 tab PO QAM tab 06/15/19 09/04/19 09/03/19 mg-lycopene 300 mcg-lutein 250 mcg tablet omega-3 fatty acids 1,000 mg 1,000 mg PO DAILY cap 06/15/19 09/04/19 09/03/19 capsule simvastatin 10 mg tablet 10 mg PO QPM #90 tab 06/25/19 09/04/19 09/03/19 CPAP Machine #1 ea 07/13/19 08/13/19 Unknown ondansetron HCl 4 mg tablet 4 mg PO QID PRN #20 tab 08/13/19 09/04/19 Unknown triamterene-hydrochlorothiazid 0.5 tab PO QAM 09/04/19 09/04/19 09/04/19 Active Medications Generic Name Dose Route Start Last Admin Trade Name Joseq PRN Reason Stop Dose Admin Lactated Ringer's 1,000 mls @ 80 mls/hr 09/04/19 14:27 09/05/19 04:44 Lr IV 09/05/19 15:26 80 mls/hr .[id number] MAYNOR Administration Pantoprazole Sodium 40 mg/ 10 mls @ 5 mls/min 09/04/19 21:00 09/05/19 08:51 Syringe IV 10/04/19 20:59 5 mls/min BID@0900,2100 MAYNOR Administration Ioversol 93 ml 09/04/19 11:36 09/04/19 11:36 Optiray 320 100ml IV 09/08/19 11:35 93 ml ONCE PRN Administration Interaction Checking Past Medical History Medical History Basal cell carcinoma Carpal tunnel syndrome Diverticulosis HTN (hypertension) (Chronic) SRIKANTH (obstructive sleep apnea) (Chronic) Past Family History Family History Father Cancer Past Surgical History Surgical History H/O carpal tunnel repair S/P tonsillectomy Social History Smoking Status: Former smoker Do You Dip or Chew Tobacco: No Hx Alcohol Use: No Hx Substance Use: No substance use type: does not use Physical Exam Vital Signs Last Vital Signs Temp 37.1 C 09/05/19 10:29 Pulse 91 H 09/05/19 10:29 Resp 21 09/05/19 10:29 BP 115/77 09/05/19 10:29 Pulse Ox 93 09/05/19 10:29 Testing Laboratory Results 09/05/19 05:47 09/05/19 05:47 PT 10.9 Seconds (9.0-12.0) 09/04/19 10:20 INR 1.1 (0.9-1.1) 09/04/19 10:20 APTT 23.9 Seconds (21.0-31.0) 09/04/19 10:20 Urine Color Dark Yellow 09/04/19 21:30 Urine Appearance Clear (Clear) 09/04/19 21:30 Urine pH 7.5 (4.5-7.5) 09/04/19 21:30 Ur Specific [place] > 1.045 (1.000-1.030) H 09/04/19 21:30 Urine Protein Negative (Negative) 09/04/19 21:30 Urine Glucose (UA) Negative (Negative) 09/04/19 21:30 Urine Ketones 1+ (Negative) H 09/04/19 21:30 Urine Nitrite Negative (Negative) 09/04/19 21:30 Ur Leukocyte Esterase Negative (Negative) 09/04/19 21:30 Urine WBC (Auto) 1-5 /hpf (0-5) 09/04/19 21:30 Urine RBC (Auto) 0-4 /hpf (0-4) 12/31/19 21:30 U Hyaline Cast (Auto) 1-5 /lpf (0-5) 09/04/19 21:30 U Epithel Cells (Auto) 0-5 /lpf (0-5) 09/04/19 21:30 Urine Bacteria (Auto) Negative (Negative) 09/04/19 21:30 Electrocardiogram Date: 09/04/19 sinus rhythm with frequent and consecutive PACs Left bundle branch block Abnormal ECG No previous ECGs available Confirmed by James Vaca [id number]) o n 09/04/2019 3:08:10 PM Chest X-Ray Date: 09/04/19 Chronic and emphysematous change. No acute process.
[2019-09-05] MEDS: PANTOprazole 40 MG in SYRINGE 0 ML IV SCH ×2 (08:51→21:08)
--- NOTE | 2019-09-05 10:17 | History & Physical Report ---
Date of Service September 05, 2019 History of Present Illness Chief Complaint: gastric distension Primary Care Provider: Annia Dyer MD For EGD Allergies Allergy/AdvReac Type Severity Reaction Status Date / Time No Known Drug Allergies Allergy Verified 08/13/19 11:24 Home Medications Home Medications Medication Instructions Recorded Confirmed Type calcium carb 300 mg-D3 800 1 - 2 tab PO AMPM tab 06/13/19 09/04/19 History unit-mag ox 25 mg-junior copywriter 0.5 mg-aleksandra-Zn tablet ascorbic acid (vitamin C) 500 mg 1 gm PO QAM tab 06/15/19 09/04/19 History tablet zmrhpcgm-osr-qyodb acid 0.4 1 tab PO QAM tab 06/15/19 09/04/19 History mg-lycopene 300 mcg-lutein 250 mcg tablet omega-3 fatty acids 1,000 mg 1,000 mg PO DAILY cap 06/15/19 09/04/19 History capsule simvastatin 10 mg tablet 10 mg PO QPM #90 tab 06/25/19 09/04/19 Rx CPAP Machine #1 ea 07/13/19 08/13/19 Rx ondansetron HCl 4 mg tablet 4 mg PO QID PRN #20 tab 08/13/19 09/04/19 Rx triamterene-hydrochlorothiazid 0.5 tab PO QAM 09/04/19 09/04/19 History Past Med/Surg History Medical History Basal cell carcinoma Carpal tunnel syndrome Diverticulosis HTN (hypertension) (Chronic) SRIKANTH (obstructive sleep apnea) (Chronic) Surgical History H/O carpal tunnel repair S/P tonsillectomy Family History Father Cancer Social History Preferred Language: Slovenian Communication Ability: 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 Beliefs That Will Affect Care: None marital status: Current Living Situation: Spouse current occupational status: retired Other Information That Helps Us Care for You: No Feels Safe at Home: Yes Safety Concerns: Feels Safe At This Time Smoking Status: Former smoker Do You Dip or Chew Tobacco: No ; Second Hand Exposure: No ; Tobacco Cessation Education Requested by Patient: No Hx Alcohol Use: No Hx Substance Use: No Seatbelt Use: always Physical Exam Constitutional: + thin Respiratory: Auscultation: + diminished lung sounds Cardiovascular: Rate/Rhythm: regular rate and regular rhythm Gastrointestinal (Abdomen): Inspection/Auscultation: + abdomen distended Results & Data Vital Signs (Past 12 Hours) Vital Signs Temp Pulse Resp BP Pulse Ox 09/05/19 08:45 36.9 C 92 H 18 130/75 97 09/04/19 22:50 37.4 C 80 16 110/70 96 Code Status & VTE Plan VTE Prophylaxis Plan VTE Prophylaxis will be ordered: Yes
--- NOTE | 2019-09-05 10:19 | Hospitalist Progress Note ---
Date of Service September 05, 2019 Assessment & Plan (1) Gastric outlet obstruction: Mr. Guzmán is a 83-year-old male presenting with 2 to 3 months of dysphasia to solids, nausea/vomiting postprandial as well as a 40 to [address] of the abdomen revealed gastric distention as well as a soft tissue prominence causing obstruction in the duodenum concerning for duodenitis versus neoplastic process. - CT - distention of stomach with potentially soft tissue mass-like changes - PUD is considered; possible 3 mm calculus in distal aspect of bile duct; possibility of progressive duodenitis - MRCP - cholelithiasis with choledocholithiasis and extrahepatic biliary ductal dilation; large inflamed duodenal diverticulum with surrounding inflammatory stranding suggestive of acute duodenitis and pancreatitis; diverticulum increased in size from 03/30/2019 - NGT placed to low intermittent suction for decompression; planning on endoscopy today with Dr. Redd - Lipase/LFTs WNL - Further treatment pending endoscopy findings - Protonix 40 mg IV BID; LR at 80 mL/hr - GI following - appreciate input (2) Dysphagia: - Most likely 2/2 gastric/duodenal obstruction from mass/inflammation/ulcer; associated significant weight loss - NPO with NGT placed; awaiting EGD (3) Choledocholithiasis: - MRCP as above; LFTs/Lipase WNL - Treatment as above (4) HTN (hypertension): - STABLE - Hold Triamterene/HCTZ (5) SRIKANTH (obstructive sleep apnea): - Chronic/Stable. CPAP nightly - to bring in nose piece - will have to see if use is possible pending disposition of NGT (6) Anemia: - Patient with normochromic/normocytic anemia with Hgb = 12.1, HCT = 36.4. Possibly secondary to underlying GI process Continue to monitor; Routine labs (7) Hyperlipidemia: - Chronic - Hold simvastatin and omega-3 for now Disposition await EGD Supervising Physician Co-Signing Physician Notes Patient seen and examined with Keeley ESTRADA. I agree with her exam findings, review of systems, assessment and plan. I personally reviewed the lab work and imaging as well. discussed with the surgical oncologist at [facility]. Ideally she would want to see the patient in the office and plan for elective surgery. I explained that he was quite obstructed and that I am not sure he will be able to go home. He had 500mL in his stomach that was suctioned at the time of EGD and his NGT continues to drain bilious fluid. He has been vomiting everything he tried to eat or drink for the past few days. plan will be to keep NGT at low intermittent suction this evening plan to perform a clamp trial for 4 hours tomorrow, if he immediately drains several hundred mL when suction back on then he is obstructed if his stomach is empty then he can be started on clear liquids and advanced to full liquids if he tolerates if at any time he shows signs of obstruction such as vomiting or large amounts of drainage from NGT, then contact [facility] for direct transfer if he can tolerate liquid diet by Tuesday then he can go home and follow up with surgical oncologist next week asked surgeon about keeping him NPO and starting TPN, she does NOT want TPN name of surgeon is Dr. Jeter and she is professional development director through Tuesday, Dr. Guardado is professional development director this weekend and she will be aware of plans as well Subjective Reports feeling better since NGT placed. Tolerating without difficulty. Planning on endoscopy today to further evaluate. Currently denies any abdominal pain. Verbalizes no new complaints Review of Systems Constitutional: no fever and no chills Ear, Nose, Mouth, Throat: no sore throat Respiratory: no cough and no dyspnea Cardiovascular: no chest pain, no palpitations, no lightheadedness and no edema Gastrointestinal: no abdominal pain, no nausea, no vomiting, no constipation and no diarrhea/loose stools Genitourinary: no dysuria Musculoskeletal: no body aches Integumentary: no rash Neurologic: no tingling and no numbness Physical Exam Constitutional: WD/WN, vitals as above Eyes: + anicteric sclerae ENMT: Ears: no hearing impairment NGT placed in R nare Neck: trachea midline Respiratory: normal respiratory effort, lungs clear to auscultation Cardiovascular: RRR, no murmur, no edema Gastrointestinal (Abdomen): Inspection/Auscultation: normal bowel sounds Percussion/Palpation: abdomen soft; abdomen nontender Musculoskeletal: Head/Neck/Chest: normocephalic and head atraumatic Skin: no rashes, warm and dry Neurologic: moves all extremities Psychiatric: A+Ox3, euthymic affect Results & Data Vital Signs (Past 12 Hours) Vital Signs Temp Pulse Resp BP Pulse Ox 09/05/19 08:45 36.9 C 92 H 18 130/75 97 09/04/19 22:50 37.4 C 80 16 110/70 96 PG Care Time/CCT Total # of Minutes Spent Total Time Spent with Patient: Total time spent is greater than 50% in coordination of care (as documented) at patient's floor/unit and/or counseling patient: (1) Anemia Anemia type: unspecified type Qualified Code(s): D64.9 - Anemia, unspecified (2) Dysphagia Dysphagia type: esophageal phase Qualified Code(s): R13.10 - Dysphagia, unspecified (3) Hyperlipidemia Hyperlipidemia type: unspecified Qualified Code(s): E78.5 - Hyperlipidemia, unspecified (4) HTN (hypertension) Hypertension type: essential hypertension Qualified Code(s): I10 - Essential (primary) hypertension
[2019-09-05] MEDS ORDERED: SODIUM CHLORIDE 0.9% 1000ML 1,000 ML IV SCH (10:30)
[2019-09-05] MEDS ORDERED: PROPOFOL IV EMULSION 10 MG/ML 20 ML VIAL IV ONE (10:33)
[2019-09-05] MEDS ORDERED: LIDOCAINE HCL 2% 2 ML VIAL/AMP(20MG/ML) INFIL ONE (10:33)
[2019-09-05] MEDS ORDERED: fentaNYL citrate 100 MCG/2 ML VIAL ONE (11:13)
[2019-09-05] MEDS ORDERED: SUCCINYLCHOLINE 100MG/5ML SYR ONE (11:14)
[2019-09-05] MEDS ORDERED: DEXAMETHASONE SOD INJ 4 MG/ML VIAL ONE (11:27)
[2019-09-05] MEDS ORDERED: ONDANSETRON INJ 2 MG/ML 2 ML VIAL ONE (11:27)
--- NOTE | 2019-09-05 11:44 | GI REPORT ---
Patient Name: Alber Guzmán Procedure Date: 09/05/2019 10:49 AM Date of : 1935 Admit Type: Inpatient Age: 83 Gender: Male Attending MD: Moy Redd MD Procedure: Upper GI endoscopy Providers: Moy Redd MD Referring MD: Yomaira Bauer Indications: Abnormal CT of the GI tract Medicines: General Anesthesia Complications: No immediate complications. Estimated Blood Loss: Estimated blood loss was minimal. Procedure: Pre-Anesthesia Assessment: - Prior to the procedure, a History and Physical was performed, and patient medications, allergies and sensitivities were reviewed. The patient's tolerance of previous anesthesia was reviewed. After obtaining informed consent, the endoscope was passed under direct vision. Throughout the procedure, the patient's blood pressure, pulse, and oxygen saturations were monitored continuously. The Endoscope was introduced through the mouth, and advanced to the second part of duodenum. The upper GI endoscopy was accomplished without difficulty. The patient tolerated the procedure well. Findings: The Z-line was regular and was found 39 cm from the incisors. Excessive fluid was found in the gastric body. A large ulcerated mass with stigmata of recent bleeding was found in the second portion of the duodenum. Biopsies were taken with a cold forceps for histology. Estimated blood loss was minimal. Impression: - Z-line regular, 39 cm from the incisors. - Excessive gastric fluid. 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 Recommendation: - [facility] care. Moy Redd M.D. Moy eRdd MD 09/05/2019 11:43:36 AM This report has been signed electronically. Note Initiated On: 09/05/2019 10:49 AM Number of Addenda: 0 I attest to the content of the Intraoperative Record and orders documented therein, exceptions below {[id number]}
--- NOTE | 2019-09-05 11:58 | Anesthesiology Progress Note ---
Date of Service September 05, 2019 Anesthesia Post Procedure Vital Signs Vital Signs: Temp Pulse Pulse Resp BP BP Pulse Ox 09/05/19 11:53 36.5 C 91 H 19 122/77 97 09/05/19 10:29 37.1 C 91 H 21 115/77 93 09/05/19 08:45 36.9 C 92 H 18 130/75 97 09/04/19 22:50 37.4 C 80 16 110/70 96 09/04/19 14:05 36.7 C 85 16 131/59 L 92 Pain Intensity Upper Abdomen: Pain Intensity: 0 Transfer of Care Handoff Completed per policy Notes Mental Status: alert / awake / arousable and participated in evaluation Patient Amnestic to Procedure: Yes Nausea / Vomiting: adequately controlled Pain: adequately controlled Airway Patency, RR, SpO2: stable & adequate BP & HR: stable & adequate Hydration State: stable & adequate Anesthetic Complications: no major complications apparent and Pt Satisfied with anesthetic care
--- NOTE | 2019-09-05 12:24 | Progress Note ---
DATE: 09/04/2019 The patient presented yesterday with gastric outlet obstruction with an obstructing lesion identified on CT and the duodenum. He underwent nasogastric decompression overnight and today presented to the OR where he was placed under general anesthesia and intubated for airway protection and had an EGD performed. The esophagus was relatively normal. Z line is 39 cm. The stomach had 550 mL of bilious fluid in it, which was removed by suction. There was still a residual solid food present. Otherwise, the stomach was normal. Duodenal bulb was completely normal; in the second portion of the duodenum; however, there was a large ulcerated fungating mass that was completely obstructing the second portion of the duodenum. Biopsies of this mass were obtained. The patient tolerated the procedure well. IMPRESSION: The patient has a large duodenal obstructing mass. It is unclear whether this represents an ampullary tumor or primary stromal tumor of the duodenum or invading tumor. 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 In any case, the patient's duodenum is being obstructed by the mass and his nasogastric tube was replaced. I suspect that he will need surgery and possibly a Whipple operation and in that sense may be needing transfer to a tertiary facility.
[2019-09-06] MEDS: LACTATED RINGER'S 1,000 ML IV SCH ×3 (05:08→22:35)
[2019-09-06 06:53] LABS: Hematocrit (blood only) 36.6 % (42-52); Hemoglobin 12.1 g/dL (14.0-18.0); Mean Corpuscular Hemoglobin 30.8 pg (25-34); Mean Corpuscular Hgb Conc 33.1 g/dL (32-36); Mean Corpuscular Volume 93.1 fL (80-100); Mean Platelet Volume 9.9 fL (7.4-10.4); Platelet Count 327 K/uL (130-400); RDW Coefficient of Variation 14.3 % (11.5-14.5); RDW Standard Deviation 48.7 fL (36.4-46.3); Red Blood Count 3.93 M/uL (4.7-6.1); White Blood Count 8.75 K/uL (4.8-10.8)
[2019-09-06 07:33] LABS: BUN Creatinine Ratio 23.1 (10-20); Calcium 8.8 mg/dl (8.5-10.1); Creatinine Clr Calc Pharmacy 57.3 ml/min; Est GFR (African American) 76.6; Est GFR (Non-African American) 66.1
--- NOTE | 2019-09-06 08:40 | Anesthesiology Progress Note ---
Date of Service September 06, 2019 Anesthesia Post Procedure Vital Signs Vital Signs: Temp Pulse Pulse Pulse Resp BP BP 09/06/19 07:26 36.8 C 86 16 131/77 09/06/19 03:25 36.8 C 88 16 120/73 09/05/19 23:35 36.9 C 93 H 16 122/74 09/05/19 19:17 36.9 C 101 H 16 136/69 09/05/19 15:06 37.0 C 95 H 18 111/67 09/05/19 13:45 37.4 C 91 H 16 105/65 09/05/19 12:45 36.9 C 90 16 109/62 09/05/19 12:30 91 H 21 110/63 09/05/19 12:20 94 H 23 106/60 09/05/19 12:10 93 H 19 119/68 09/05/19 12:00 92 H 15 104/67 09/05/19 11:53 36.5 C 91 H 19 122/77 09/05/19 10:29 37.1 C 91 H 21 115/77 09/05/19 08:45 36.9 C 92 H 18 130/75 Pulse Ox 09/06/19 07:26 94 09/06/19 03:25 95 09/05/19 23:35 97 09/05/19 19:17 95 09/05/19 15:06 94 09/05/19 13:45 92 09/05/19 12:45 94 09/05/19 12:30 94 09/05/19 12:20 92 09/05/19 12:10 93 09/05/19 12:00 96 09/05/19 11:53 97 09/05/19 10:29 93 09/05/19 08:45 97 Pain Intensity Upper Abdomen: Pain Intensity: 0 Notes Mental Status: alert / awake / arousable and participated in evaluation Nausea / Vomiting: adequately controlled Pain: adequately controlled Airway Patency, RR, SpO2: stable & adequate BP & HR: stable & adequate Hydration State: stable & adequate
[2019-09-06] MEDS: PANTOprazole 40 MG in SYRINGE 0 ML IV SCH ×2 (09:07→20:30)
--- NOTE | 2019-09-06 13:17 | Hospitalist Progress Note ---
Date of Service September 06, 2019 Assessment & Plan (1) Gastric outlet obstruction: - Presented with 2-3 months dysphagia, N/V and weight loss. - CT A/P revealed gastric distention as well as soft tissue prominence causing obstruction in the duodenum. - MRCP: cholelithiasis with choledocolithiasis and extrahepatic biliary duct dilatation, large inflamed duodenal diverticuli with surrounding inflammation suggestive of duodenitis and pancreatitis. - EGD with large ulcerated mass in second portion of the duodenum, biopsies pending but was malignant appearing. - NG tube was re-inserted post EGD; will attempt to clamp NG tube this morning and start CLD. - Case was discussed with surg/onc Dr. Jeter [place] [facility] [place] will need surgery in near future but will attempt CLD; if pt cannot tolerate oral intake will need to be transferred to [facility] for urgent surgery. If he tolerates clamped tube with CLD, then can be discharged to home and f/u with surg/onc in a few days as outpatient. - Protonix IV BID; receiving IV fluid hydration with LR. - GI consulted, appreciate input. - Lipase level and LFTs were WNL. 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 (3) Dysphagia: - Most likely related to duodenal obstruction as noted above. - Attempting CLD with clamped NG tube this morning. (4) Choledocholithiasis: - MRCP as above; LFTs & Lipase were WNL. (5) HTN (hypertension): - Holding Triamterene/HCTZ. (6) SRIKANTH (obstructive sleep apnea): CPAP qhs - to bring in nose piece. 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 Continue to monitor frequently. (8) Hyperlipidemia: - Hold Simvastatin. (9) Oliguria: - Minimal urine production, bladder scanned for ~120 cc since beginning of shift this morning. - Will increase IV fluids to 125 cc/hr -- likely related to dehydration, very poor PO intake since Tuesday. - Bladder scan q6hr; may require perez cath to monitor accurate I/Os. (10) Dehydration: - As noted above, minimal urine output & elevated BUN on morning labs. - Increase IV fluids to 125 cc/hr. - Expect improvement over next 24 hours. (11) Severe protein-calorie malnutrition: - Albumin level 2.1 - related to malignancy, poor PO intake. - Starting CLD; will need nutrition consult following completion of surgery at [facility]. (12) DVT prophylaxis: - SCDs; holding pharmacologic ppx for possible procedure (may require urgent transfer to [facility]) Dispo: Med/surg; discharge pending if patient can tolerate CLD with clamped NG tube. Will need close f/u with surg/onc at [facility]. Supervising Physician Co-Signing Physician Notes PA Supervision Note: I did not personally see or examine the patient today, but I verified all neal points of NATALIE Awad's assessment and plan with the following exceptions/additions: Need to discuss with GI about need for ERCP for choledocholithiasis although no evidence of cholangitis or biliary obstruction on labs at this time Subjective Pt. denies abd pain, bloating, nausea/vomiting. Has not had a BM since Tuesday - has also had very limited PO intake due to duodenal mass/obstruction. Will clamp NG tube this morning and trial CLD. Review of Systems Review of Systems: All systems reviewed & are unremarkable except as noted in HPI & below Constitutional: + fatigue, + weakness and + anorexia; no fever and no chills Respiratory: no cough, no dyspnea and no dyspnea on exertion Cardiovascular: no chest pain and no edema Gastrointestinal: + constipation; no abdominal pain, no bloating, no nausea and no vomiting Genitourinary: no difficulty urinating Musculoskeletal: no back pain and no joint pain Integumentary: no non-healing lesions Physical Exam Physical Exam: General: Resting comfortably HEENT: NC/AT; PERRLA with EOMI; [place] conjunctiva, MMM. No erythema of posterior pharynx Neck: Supple and nontender Cardiac: RRR Lungs: CTA bilaterally Abdomen: Bowel normoactive X 4; Nontender to palpation Extremities: Warm. No edema present Neuro: No focal weakness Skin: No rash Results & Data Vital Signs (Past 12 Hours) Vital Signs Temp Pulse Resp BP Pulse Ox 09/06/19 11:11 36.9 C 85 16 133/74 94 09/06/19 07:26 36.8 C 86 16 131/77 94 09/06/19 03:25 36.8 C 88 16 120/73 95 Laboratory Results 09/06/19 09/06/19 Range/Units 06:42 06:42 WBC 8.75 (4.8-10.8) K/uL RBC 3.93 L (4.7-6.1) M/uL Hgb 12.1 L (14.0-18.0) g/dL Hct 36.6 L (42-52) % MCV 93.1 (80-100) fL MCH 30.8 (25-34) pg MCHC 33.1 (32-36) g/dL RDW Std Deviation 48.7 H (36.4-46.3) fL RDW Coeff of Ivneet 14.3 (11.5-14.5) % Plt Count 327 (130-400) K/uL MPV 9.9 (7.4-10.4) fL Sodium 143 (136-145) mmol/L Potassium 4.0 (3.5-5.1) mmol/L Chloride 107 (98-107) mmol/L Carbon Dioxide 27 (21-32) mmol/L Anion Gap 9.0 (3-11) BUN 24 H D (7-18) mg/dl Creatinine 1.04 (0.6-1.4) mg/dl Est Cr Clr Drug Dosing 57.3 ml/min Est GFR ( Amer) 76.6 Est GFR (Non-Af Amer) 66.1 BUN/Creatinine Ratio 23.1 H (10-20) Glucose 76 (70-99) mg/dl Calcium 8.8 (8.5-10.1) mg/dl PG Care Time/CCT Total # of Minutes Spent Total Time Spent with Patient: Total time spent is greater than 50% in coordination of care (as documented) at patient's floor/unit and/or counseling patient: (1) Anemia Anemia type: unspecified type Qualified Code(s): D64.9 - Anemia, unspecified (2) Dysphagia Dysphagia type: esophageal phase Qualified Code(s): R13.10 - Dysphagia, unspecified (3) Hyperlipidemia Hyperlipidemia type: unspecified Qualified Code(s): E78.5 - Hyperlipidemia, unspecified (4) HTN (hypertension) Hypertension type: essential hypertension Qualified Code(s): I10 - Essential (primary) hypertension
--- NOTE | 2019-09-06 16:25 | Progress Note ---
DATE: 09/06/2019 The patient continues to have his nasogastric tube in place. The patient is on a trial of clear liquids to see if any liquids will go through the duodenum. Based on his endoscopic exam yesterday, I think this is highly improbable, but the surgeons at [facility] requested this trial to see if he is able to tolerate clear liquids, in which case he could go home without a nasogastric tube and then be seen as an outpatient. If it fails, then he would be transferred as an inpatient. So far today, he is taking in water but continues to have some nasogastric drainage when his tube is unclamped. His abdomen still remains slightly distended and tympanitic. Blood pressure is 134/69, pulse 69. He is afebrile. Room air saturation 95%. Hemoglobin 12.1. Pathology is pending at this time. It is just being grossed in today. We may have some preliminary results tomorrow. IMPRESSION: The patient's duodenal obstruction is being tested with clear liquids with intermittent clamping of the nasogastric tube. Hopefully, pathology may be available tomorrow. If he fails the clear liquid trial, then we will be transferring him directly to [facility] from the hospital. SOCRATES
[2019-09-07] MEDS: LACTATED RINGER'S 1,000 ML IV SCH ×2 (05:47→13:49)
[2019-09-07 06:37] LABS: Albumin Level 1.9 gm/dl (3.4-5.0); BUN Creatinine Ratio 20.8 (10-20); Creatinine Clr Calc Pharmacy 69.3 ml/min; Est GFR (African American) 92.9; Est GFR (Non-African American) 80.2; Magnesium 1.9 mg/dl (1.8-2.4); Potassium 3.6 mmol/L (3.5-5.1)
[2019-09-07 06:40] LABS: Albumin Globulin Ratio 0.5 (0.9-2); Bilirubin,Total 0.3 mg/dl (0.2-1); Globulin 3.8 gm/dl (2.5-4.0); Total Protein 5.7 gm/dl (6.4-8.2)
[2019-09-07] MEDS: PANTOprazole 40 MG in SYRINGE 0 ML IV SCH ×2 (09:48→20:20)
--- NOTE | 2019-09-07 12:24 | XRay Report ---
KUB CLINICAL HISTORY: Evaluate for gastric distention. COMPARISON STUDY: CT of the abdomen and pelvis September 04, 2019. FINDINGS: Tip of nasogastric tube is within the gastric fundus. There is mild gaseous distention whic h has mildly improved since exam of September 04, 2019. A few loops of mildly dilated small bowel are noted. IMPRESSION: 1. Interval placement of a nasogastric tube. Mild gastric distention, mildly improved since prior exa m. 2. A few loops of mildly dilated small bowel. These findings do not strongly suggest a small bowel ob struction may reflect a mild ileus. ACT 112: Negative or not required by law. Electronically signed by: Castillo Adkins M.D. 09/07/2019 12:22 PM
--- NOTE | 2019-09-07 14:59 | Hospitalist Progress Note ---
Date of Service September 07, 2019 Assessment & Plan (1) Gastric outlet obstruction: - Presented with 2-3 months dysphagia, N/V and weight loss. - CT A/P revealed gastric distention as well as soft tissue prominence causing obstruction in the duodenum. - MRCP: cholelithiasis with choledocolithiasis and extrahepatic biliary duct dilatation, large inflamed duodenal diverticuli with surrounding inflammation suggestive of duodenitis and pancreatitis. - EGD with large ulcerated mass in second portion of the duodenum, biopsies pending but was malignant appearing. - Attempted to clamp NG tube on 09/06 but pt had residual fluid in stomach today. Continue NG tube to low intermittent suction & NPO status. - Case was discussed with surg/onc [place] [facility] pending bed availability. - Protonix IV BID; receiving IV fluid hydration with LR. - GI consulted, appreciate input. - Lipase level and LFTs were WNL. 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 (3) Dysphagia: - Most likely related to duodenal obstruction as noted above. - Currently NPO due to obstruction/ileus. (4) Choledocholithiasis: - MRCP as above; LFTs & Lipase were WNL. - Cannot complete ERCP due to obstruction. (5) Ileus: - Possible ileus noted on KUB. - Continue NG tube to LIS and NPO status. (6) HTN (hypertension): - Holding Triamterene/HCTZ. (7) SRIKANTH (obstructive sleep apnea): CPAP qhs - to bring in nose piece. 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 Continue to monitor frequently. (9) Hyperlipidemia: - Hold Simvastatin. (10) Oliguria: - Minimal urine production on 09/06, likely related to dehydration. Now improving. - IV fluids at 125 cc/hr -- likely related to dehydration, very poor PO intake since Tuesday. (11) Dehydration: - As noted above, minimal urine output & elevated BUN. Now improving. - IV fluids at 125 cc/hr. (12) Severe protein-calorie malnutrition: - Albumin level 2.1 - related to malignancy, poor PO intake. - Will need nutrition consult following completion of surgery [place] [facility] (13) DVT prophylaxis: - SCDs; hold pharmacologic ppx for possible procedure Dispo: Med/surg; discharge to [facility] [place] availability. Supervising Physician Co-Signing Physician Notes PA Supervision Note: I did not personally see or examine the patient today, but I verified all neal points of NATALIE Awad's assessment and plan with the following exceptions/additions: Subjective Clamped NG tube yesterday morning, has been tolerating CLD without N/V. Discussed with GI this morning, NG tube placed on LIS. Pt. had ~100 cc output. KUB showed mild gastric distention and ileus. He is not passing gas, has not had a BM. Discussed transfer [place] [facility] [place]c, agreed to take patient pending bed availabilty. Review of Systems Review of Systems: All systems reviewed & are unremarkable except as noted in HPI & below Constitutional: + fatigue, + weakness, + anorexia and + weight loss; no fever and no chills Respiratory: no cough, no dyspnea and no dyspnea on exertion Cardiovascular: no chest pain, no palpitations and no edema Gastrointestinal: + constipation; no abdominal pain, no nausea and no vomiting Genitourinary: no difficulty urinating Musculoskeletal: no back pain and no joint pain Integumentary: no non-healing lesions Physical Exam Physical Exam: General: Resting comfortably HEENT: NC/AT; PERRLA with EOMI; [place] conjunctiva, MMM. No erythema of posterior pharynx Neck: Supple and nontender Cardiac: RRR Lungs: CTA bilaterally Abdomen: Bowel hypoactive X 4; Tender to deep palpation over epigastric region. Extremities: Warm. No edema present Neuro: No focal weakness Skin: No rash Results & Data Vital Signs (Past 12 Hours) Vital Signs Temp Pulse Resp BP Pulse Ox 09/07/19 07:34 36.8 C 76 18 118/65 95 Laboratory Results 09/07/19 Range/Units 05:57 Sodium 142 (136-145) mmol/L Potassium 3.6 (3.5-5.1) mmol/L Chloride 108 H (98-107) mmol/L Carbon Dioxide 31 (21-32) mmol/L Anion Gap 3.0 (3-11) BUN 18 (7-18) mg/dl Creatinine 0.86 (0.6-1.4) mg/dl Est Cr Clr Drug Dosing 69.3 ml/min Est GFR ( Amer) 92.9 Est GFR (Non-Af Amer) 80.2 BUN/Creatinine Ratio 20.8 H (10-20) Glucose 81 (70-99) mg/dl Calcium 8.0 L (8.5-10.1) mg/dl Magnesium 1.9 (1.8-2.4) mg/dl Total Bilirubin 0.3 (0.2-1) mg/dl AST 25 (15-37) U/L ALT 13 (12-78) U/L Alkaline Phosphatase 52 (45-117) U/L Total Protein 5.7 L (6.4-8.2) gm/dl Albumin 1.9 L (3.4-5.0) gm/dl Globulin 3.8 (2.5-4.0) gm/dl Albumin/Globulin Ratio 0.5 L (0.9-2) PG Care Time/CCT Total # of Minutes Spent Total Time Spent with Patient: Total time spent is greater than 50% in coordination of care (as documented) at patient's floor/unit and/or counseling patient: (1) Anemia Anemia type: unspecified type Qualified Code(s): D64.9 - Anemia, unspecified (2) Dysphagia Dysphagia type: esophageal phase Qualified Code(s): R13.10 - Dysphagia, unspecified (3) Hyperlipidemia Hyperlipidemia type: unspecified Qualified Code(s): E78.5 - Hyperlipidemia, unspecified (4) HTN (hypertension) Hypertension type: essential hypertension Qualified Code(s): I10 - Essential (primary) hypertension
--- NOTE | 2019-09-07 15:02 | Discharge Summary ---
Date of Service September 07, 2019 Admission HPI Per Admitting Provider Alber Guzmán is a pleasant 83-year-old male with history of hypertension/hyperlipidemia/diverticulosis presenting today with abdominal pain/nausea/vomiting. Patient's complaints have been ongoing for the last 2 to 3 months with dysphagia to solids as well as frequent postprandial vomiting and regurgitation of undigested food. He reports a weight loss of approximately 40 - 50 pounds over the last 3 months. He had a Cologuard that was recently positive and was scheduled to have a colonoscopy performed by Dr. Redd on September 07. He denies any melena or hematochezia. Denies hematemesis. He reports occasionally feeling an area of fullness and firmness in his abdomen. Today he presents with bandlike pain across his upper abdomen as well as bloating. He has been unable to tolerate oral intake. He also complains of constipation and food tasting differently. No complaints of chest pain/shortness of breath/fever/chills/diarrhea. Last colonoscopy was in 2007 with polyp removal. Admission Exam Per Admitting Provider General: patient resting comfortably, NAD, non-toxic in appearance, AA&O x 4 Skin: warm, dry, intact, no rashes or lesions HEENT: NC/AT, PERRL, EOMI, anicteric sclera, conjunctiva without injection, external ear normal to inspection and nontender, nares patent, moist mucus membranes, dentition intact, no oropharyngeal lesions, neck supple, trachea midline, no LAD, no thyromegaly, no JVD, NG tube in place to low intermittent suction with one filled canister of liquid output Heart: +S1/S2, regular with frequent ectopy, no m/r/g Lungs: equal air entry bilaterally, no rales/rhonchi/wheezes Abd: +BS, soft, NT/ND, no masses/organomegaly/ascites Ext: warm, 2+ pulses in UE/LE bilaterally, no clubbing/cyanosis, trace pitting edema of bilateral lower extremities Neuro: nonfocal, patient AA&O x 4, speech intact, no facial droop, moving all extremities on command with equal strength 5/5 Principal Diagnosis Duodenal obstruction, likely malignancy Discharge Exam General: Resting comfortably HEENT: NC/AT; PERRLA with EOMI; [place] conjunctiva, MMM. No erythema of posterior pharynx Neck: Supple and nontender Cardiac: RRR Lungs: CTA bilaterally Abdomen: Bowel normoactive X 4; TTP to epigastric region. Extremities: Warm. No edema present Neuro: No focal weakness Skin: No rash Discharge Data Allergies Allergy/AdvReac Type Severity Reaction Status Date / Time No Known Drug Allergies Allergy Verified 08/13/19 11:24 Consultations 09/04/19 12:13 ED Decision to Admit Stat 09/04/19 14:27 Consult Gastroenterology Routine 09/07/19 14:53 Burn CD for patient Stat Procedures Performed Operation Date: 09/05/19 10:20 Actual Procedures p Esophagogastroduodenoscopy(Not Applicable) - Moy Redd Ordered Studies 09/04/19 10:03 CT abd pelvis IV con only Stat CXR 09/04/19 14:27 MR MRCP Routine KUB 09/07/19 Hospital Course (1) Gastric outlet obstruction: Presented with 2-3 months dysphagia, N/V and weight loss. CT A/P revealed gastric distention as well as soft tissue prominence causing obstruction in the duodenum. MRCP: cholelithiasis with choledocolithiasis and extrahepatic biliary duct dilatation, large inflamed duodenal diverticuli with surrounding inflammation suggestive of duodenitis and pancreatitis. EGD with large ulcerated mass in second portion of the duodenum, biopsies pending but was malignant appearing. Attempted to clamp NG tube on 09/06 but pt had residual fluid in stomach today. Continue NG tube to low intermittent suction & NPO status. Case was discussed with surg/onc Dr. Mejias at [facility] [place] -- will transfer patient pending bed availability. Protonix IV BID; receiving IV fluid hydration with LR. GI consulted, appreciate input. Lipase level and LFTs were WNL. 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 (3) Dysphagia: Most likely related to duodenal obstruction as noted above. Currently NPO due to obstruction/ileus. (4) Choledocholithiasis: MRCP as above; LFTs & Lipase were WNL. Cannot complete ERCP due to obstruction. (5) Ileus: Possible ileus noted on KUB. Continue NG tube to LIS and NPO status. (6) HTN (hypertension): Hold Triamterene/HCTZ. (7) SRIKANTH (obstructive sleep apnea): CPAP qhs - to bring in nose piece. 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 (9) Hyperlipidemia: Hold Simvastatin. (10) Oliguria: Minimal urine production on 09/06, likely related to dehydration. Now improving. IV fluids at 125 cc/hr -- likely related to dehydration, very poor PO intake since Tuesday. (11) Dehydration: As noted above, minimal urine output & elevated BUN. Now improving. IV fluids at 125 cc/hr. (12) Severe protein-calorie malnutrition: Albumin level 2.1 - related to malignancy, poor PO intake. Will need nutrition consult following completion of surgery at [facility]. (13) DVT prophylaxis: SCDs; hold pharmacologic ppx for possible procedure Discharge to [facility] pending bed availability. Total Time Total Time Spent Total Time Spent (In Minutes): >30 minutes Total Time Includes: Examination of the Patient, Discharge Planning, Medication Reconciliation, Communication With Other Providers and Other Discharge Plan Discharge Items Patient Disposition: Transfer Acute Care Hospital Reason For Visit: VOMITING, GASTRIC OUTLET OBSTRUCTION Discharge Diagnosis: Duodenal Obstruction, likely related to malignancy Condition on Discharge: Critical Activity: As commented below Non-emergency contact: Surgeon Call non-emergency contact if: you have any medication questions Follow-up/Referrals: Annia Dyer MD [Primary Care Provider] - 09/11/19 11:30 am (Please, follow up at [facility] with Dr. Dyer on TuesdaySeptember 11 at 11:30 am. *If you need to change this appointment, call the office at [phone].) Diet: Clear liquid Diet Comment: NPO Addtl Attending Provider Instructions: 1. You will be transferred to [facility] for surgical evaluation. Pending Studies at Discharge: Yes Studies:: Biopsy of duodenal mass. Stand-Alone Forms: [facility] Skilled Items Patient informed of condition?: Yes DNR: No Discharge Level of Care: Other Communicable Disease: No Discharge Prognosis: Deteriorating Lines: Peripheral IV Urinary Catheter: No Medications and DC Order Prescriptions: Discontinued simvastatin 10 mg tablet 10 mg PO QPM Qty: 90 RF: 1 ascorbic acid (vitamin C) 500 mg tablet 1 gm PO QAM RF: 0 ondansetron HCl [Zofran] 4 mg tablet 4 mg PO QID PRN (Reason: nausea and vomiting) Qty: 20 RF: 0 Caltrate + D3 Plus Minerals 300 mg-800 unit -25 mg-0.5 mg tablet 1 - 2 tab PO AMPM RF: 0 Centrum Silver 0.4-300-250 mg-mcg-mcg tablet 1 tab PO QAM RF: 0 omega-3 fatty acids [Fish Oil Concentrate] 1,000 mg capsule 1,000 mg PO DAILY RF: 0 triamterene-hydrochlorothiazid 37.5-25 mg tablet 0.5 tab PO QAM RF: 0 No Action (DME) CPAP Machine Misc See Dose Instructions .ROUTE .MEDSUPPLY Qty: 1 RF: 0 Discharge Orders: Discharge Order (Routine); Ordered 09/08/19 Ordered By: Marisela Rubio Admission Data Admit Date/Time: 09/04/19 13:14 Attending Provider: Marisela Rubio Admit Provider: Yomaira Bauer Primary Care Provider: Annia Dyer Other Providers: Yomaira Bauer ; Moy Redd Supervising Physician Co-Signing Physician Notes PA Supervision Note: I personally saw and examined the patient. I verified all neal points and agree with NATALIE Awad with the following exceptions and/or additions: Addendum:: DOS 09/08/2019--> Pt finally got a bed at [facility] on 09/08/19. He was denying abd pain or nausea, having some minimal drainage from NGT. No chest pain or SOB. 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 -continue NGT to LIS, NPO status replace potassium amd magnesiunm today -stable for transport to [facility] for Oncologic Surgery evaluation for duodenal obstructing mass/cancer. -can clamp NGT for transport
--- NOTE | 2019-09-07 15:10 | Gastroenterology Progress Note ---
Date of Service September 07, 2019 Assessment & Plan (1) Carcinoma of duodenum: Discussed diagnosis with patient and family. My understanding is [facility] has accepted this patient. He will need some type of diverting procedure. Will sign off. Please call for further questions. Subjective CC f/u duodenal mass HPI , niece/nephew with patient for H and P. Path back from duod bx pos for cancer. Pt denies abd pain. Residual fluid in stomach today small amount. KUB improved. Review of Systems Respiratory: no dyspnea Cardiovascular: no chest pain Physical Exam Respiratory: normal respiratory effort, lungs clear to auscultation Cardiovascular: RRR, no murmur, no edema Gastrointestinal (Abdomen): normal bowel sounds, soft, nontender, no hepatospl enomegaly NG in place. Results & Data Vital Signs (Past 12 Hours) Vital Signs Temp Pulse Resp BP Pulse Ox 09/07/19 07:34 36.8 C 76 18 118/65 95
[2019-09-08] MEDS: LACTATED RINGER'S 1,000 ML IV SCH ×2 (00:02→08:05)
[2019-09-08 06:50] LABS: Hematocrit (blood only) 36.5 % (42-52); Hemoglobin 11.8 g/dL (14.0-18.0); Mean Corpuscular Hemoglobin 30.1 pg (25-34); Mean Corpuscular Hgb Conc 32.3 g/dL (32-36); Mean Corpuscular Volume 93.1 fL (80-100); Mean Platelet Volume 9.9 fL (7.4-10.4); Platelet Count 268 K/uL (130-400); RDW Coefficient of Variation 14.6 % (11.5-14.5); RDW Standard Deviation 49.5 fL (36.4-46.3); Red Blood Count 3.92 M/uL (4.7-6.1); White Blood Count 7.88 K/uL (4.8-10.8)
[2019-09-08 07:17] LABS: BUN Creatinine Ratio 17.4 (10-20); Calcium 7.9 mg/dl (8.5-10.1); Creatinine Clr Calc Pharmacy 82.8 ml/min; Est GFR (Non-African American) 86.3; Magnesium 1.8 mg/dl (1.8-2.4); Potassium 3.1 mmol/L (3.5-5.1)
[2019-09-08] MEDS: PANTOprazole 40 MG in SYRINGE 0 ML IV SCH (08:06)
[2019-09-08] MEDS ORDERED: MAGNESIUM SULFATE / D5W 1 GM/100 ML BAG IV ONE (10:30)
[2019-09-08] MEDS: POTASSIUM CHLORIDE / WTR 10 MEQ/100 ML PLCT IV SCH ×4 (10:45→13:53)
== END 2019-09-08 18:56 | disposition short-term general hospital (02) | DRG 374 ==
LOC: ED 09:47 → SUATTDRO 13:14 → 3W 13:14

== ENCOUNTER 2019-10-31 16:14 | Inpatient (IN) ==
[2019-10-31] MEDS ORDERED: SODIUM CHLORIDE 0.9% 1000ML 1,000 ML IV ONE (16:52)
[2019-10-31 17:25] LABS: Basophils # (auto) 0.04 K/uL (0-0.2); Basophils % (auto) 0.3 %; Eosinophils # (auto) 0.05 K/uL (0-0.5); Eosinophils % (auto) 0.3 %; Hematocrit (blood only) 33.3 % (42-52); Hemoglobin 11.5 g/dL (14.0-18.0); Immature Granulocytes # (auto) 0.11 K/uL (0.00-0.02); Immature Granulocytes % (auto) 0.7 %; Lymphocytes # (auto) 1.33 K/uL (1.2-3.4); Lymphocytes % (auto) 8.7 %; Mean Corpuscular Hemoglobin 30.8 pg (25-34); Mean Corpuscular Hgb Conc 34.5 g/dL (32-36); Mean Corpuscular Volume 89.3 fL (80-100); Mean Platelet Volume 9.4 fL (7.4-10.4); Monocytes # (auto) 1.21 K/uL (0.11-0.59); Monocytes % (auto) 7.9 %; Neutrophils # (auto) 12.49 K/uL (1.4-6.5); Neutrophils % (auto) 82.1 %; Platelet Count 344 K/uL (130-400); RDW Standard Deviation 51.9 fL (36.4-46.3); Red Blood Count 3.73 M/uL (4.7-6.1); White Blood Count 15.23 K/uL (4.8-10.8)
[2019-10-31 17:46] LABS: Alanine Aminotransferase 39 U/L (12-78); Albumin Level 2.7 gm/dl (3.4-5.0); Aspartate Aminotransferase 24 U/L (15-37); BUN Creatinine Ratio 42.1 (10-20); Blood Urea Nitrogen 40 mg/dl (7-18); Calcium 9.6 mg/dl (8.5-10.1); Carbon Dioxide 21 mmol/L (21-32); Chloride 95 mmol/L (98-107); Est GFR (African American) 85.5; Est GFR (Non-African American) 73.7; Glucose 91 mg/dl (70-99); Lipase 282 U/L (73-393); Sodium 125 mmol/L (136-145)
[2019-10-31 17:49] LABS: Albumin Globulin Ratio 0.6 (0.9-2); Alkaline Phosphatase 275 U/L (45-117); Bilirubin,Total 0.9 mg/dl (0.2-1); Globulin 4.4 gm/dl (2.5-4.0); Total Protein 7.1 gm/dl (6.4-8.2)
[2019-10-31 20:00] LABS: Appearance Urine Clear (Clear); Bilirubin Urine Negative (Negative); Blood Urine Negative (Negative); Color Urine Dark Yellow; Glucose Urine UA Negative (Negative); Ketones Urine Negative (Negative); Leukocyte Esterase Urine Negative (Negative); Nitrite Urine Negative (Negative); Protein Urine Negative (Negative); Specific Gravity Urine 1.018 (1.000-1.030); Urobilinogen Urine Negative (Negative)
--- NOTE | 2019-10-31 20:01 | Emergency Department Note ---
Entered by Nieves Connell acting as a scribe for Edmundo Chang DO History of Present Illness General Chief complaint: Abnormal Labs/Diagnostic Testing Stated complaint: LOW SODIUM Source: patient History of Present Illness Onset (ago): hour(s) (this morning) Location: head Pain Consistency: + other (episode) Quality: + other (hyponatremia) Associated symptoms: + denies other symptoms (headache, changes in vision, cough, runny nose, abdominal pain, nausea, vomiting, diarrhea, or urinary sym ptoms) The patient is a 83 year old male that is presenting to the Emergency Room with complaints of an episode of hyponatremia as discovered on blood work completed this morning. The patient reports that he is being followed by Dr. Santos, Oncology, for a history of duodenal cancer. He states that he was completing routine bloodwork this morning. The patient denies any headache, changes in vision, cough, runny nose, abdominal pain, nausea, vomiting, diarrhea, or urinary symptoms. He notes that he had a normal bowel movement this morning. The patient states that he was discharged from the hospital 3 days ago after being treated for abnormal sodium and potassium levels. His notes that the patient has had difficulty regulating his electrolyte levels since 08/2019 when he had a feeding tube placed secondary to a tumor blocking his stomach from his lower intestine. He notes that he also has a gastric tube in place. He denies any alcohol use. Home Medications Home Medications Medication Instructions Recorded Confirmed Type CPAP Machine #1 ea 07/13/19 10/18/19 Rx simvastatin 10 mg tablet 10 mg FEEDING TUBE DAILY 09/27/19 10/31/19 History Wheeled Walker #1 ea 10/02/19 10/18/19 Rx acetaminophen 1,000 mg FEEDING TUBE Q8H PRN 10/03/19 10/31/19 History nut.tx.impaired digest fxn See Rx Instructions .ROUTE 10/28/19 10/31/19 Rx [Peptamen 1.5] .COMPLEX #6000 ml sennosides [senna] 8.8 mg FEEDING TUBE BID PRN #0 ml 10/28/19 10/31/19 Rx lansoprazole [Prevacid SoluTab] 30 mg FEEDING TUBE DAILY 10/31/19 10/31/19 History Allergies Allergy/AdvReac Type Severity Reaction Status Date / Time No Known Drug Allergies Allergy Verified 10/31/19 17:54 Past Med/Surg History Medical History Basal cell carcinoma Carcinoma of duodenum Cardiomyopathy Carpal tunnel syndrome Chronic systolic CHF (congestive heart failure) Diverticulosis Goals of care, counseling/discussion HTN (hypertension) (Chronic) SRIKANTH (obstructive sleep apnea) (Chronic) Paroxysmal atrial fibrillation Pericardial effusion Surgical History H/O carpal tunnel repair S/P jejunostomy 09/17/19 Dr. Guardado at [facility]- Diagnostic laparoscopy, Laparoscopic 16F jejunostomy tube placement, 20F PEG with T-fasteners, Bilateral TAP blocks with Exparel S/P tonsillectomy Family History Father Cancer Denies family history of Crohn's disease Colorectal cancer Ulcerative colitis Social History Preferred Language: Tanzanian Communication Ability: Effective Visual Impairment: No Limitations Continuing Education Specialist Required: No Beliefs That Will Affect Care: None marital status: Current Living Situation: Spouse current occupational status: retired Feels Safe at Home: Yes Smoking Status: Former smoker Second Hand Exposure: No ; Hx Alcohol Use: No Hx Substance Use: No Seatbelt Use: always Review of Systems See HPI for pertinent positives & negatives. and A total of 10 systems reviewed and were otherwise negative Physical Exam Vital Signs Vital Signs - 24 hr 10/31/19 16:15 10/31/19 16:47 10/31/19 16:58 Temperature 36.6 C Temperature Source Oral Pulse Rate 80 82 80 Pulse Rate [Apical] Pulse Rate from SpO2 Sensor Respiratory Rate 18 21 23 Respiratory Effort / Characteristics Non-Labored Respiratory Depth Normal Blood Pressure 84/58 L 106/68 Blood Pressure [Left Arm] Blood Pressure Mean 66 79 Blood Pressure Mean [Left Arm] Blood Pressure Position Sitting Pulse Oximetry 97 Oxygen Delivery Method Room Air Sepsis Recent Fever Within 48 Hours No Sepsis Action Taken by Nursing No Action Required 10/31/19 16:59 10/31/19 17:00 10/31/19 17:01 Temperature Temperature Source Pulse Rate 80 Pulse Rate [Apical] 78 Pulse Rate from SpO2 Sensor 79 Respiratory Rate 18 25 H Respiratory Effort / Characteristics Respiratory Depth Blood Pressure 105/70 Blood Pressure [Left Arm] 105/70 Blood Pressure Mean 77 Blood Pressure Mean [Left Arm] 81 Blood Pressure Position Pulse Oximetry 99 100 Oxygen Delivery Method Room Air Room Air Sepsis Recent Fever Within 48 Hours Sepsis Action Taken by Nursing 10/31/19 17:30 10/31/19 18:00 10/31/19 18:30 Temperature Temperature Source Pulse Rate 73 75 73 Pulse Rate [Apical] Pulse Rate from SpO2 Sensor 70 65 73 Respiratory Rate 18 19 24 Respiratory Effort / Characteristics Respiratory Depth Blood Pressure 115/73 115/74 114/62 Blood Pressure [Left Arm] Blood Pressure Mean 83 83 77 Blood Pressure Mean [Left Arm] Blood Pressure Position Pulse Oximetry 99 99 99 Oxygen Delivery Method Sepsis Recent Fever Within 48 Hours Sepsis Action Taken by Nursing 10/31/19 19:00 10/31/19 19:30 Temperature Temperature Source Pulse Rate 97 H 77 Pulse Rate [Apical] Pulse Rate from SpO2 Sensor Respiratory Rate 22 23 Respiratory Effort / Characteristics Respiratory Depth Blood Pressure 104/76 100/62 Blood Pressure [Left Arm] Blood Pressure Mean 81 67 Blood Pressure Mean [Left Arm] Blood Pressure Position Pulse Oximetry Oxygen Delivery Method Room Air Sepsis Recent Fever Within 48 Hours Sepsis Action Taken by Nursing GENERAL: Cachectic, sitting up in bed. Chronically ill appearing. EYE EXAM: normal conjunctiva OROPHARYNX: no exudate, no erythema, lips, buccal mucosa, and tongue normal and mucous membranes are dry. NECK: supple, no nuchal rigidity, no adenopathy, non-tender LUNGS: Clear to auscultation. Normal chest wall mechanics HEART: no murmurs, S1 normal and S2 normal ABDOMEN: abdomen soft, non-tender, normo-active bowel sounds, no masses, no rebound or guarding. Gastric tube in place as well as feeding tube. BACK: Back is symmetrical on inspection and there is no deformity, no midline tenderness, no CVA tenderness. SKIN: no rashes and no bruising UPPER EXTREMITIES: upper extremities are grossly normal. LOWER EXTREMITIES: No pitting edema. NEURO EXAM: Normal sensorium, cranial nerves II-XII grossly intact, normal speech, no gross weakness of arms, no gross weakness of legs. Course Course ED COURSE: Vital signs were reviewed and showed hypotensive. The patients medical record was reviewed The above diagnostic studies were performed and reviewed. ED treatments and interventions as stated above. 1640: The patient was evaluated in room C11B. A complete history and physical examination was performed. 1835: I updated the patient on his current results. Dr. Rubio was paged as nutritional changes have been unsuccessful. Hypotension has resolved. 1905: I updated the patient, who is amenable for further observation in the hospital. 2024: I discussed the patient's case with Dr. Salvador, [facility], who will evaluate the patient for further management and care. 2029: Upon reevaluation, the patient is resting comfortably. .I discussed my findings with the patient and he understands and agrees with the treatment plan. Based on the patients age, coexisting illnesses, exam and lab findings the decision to treat as an inpatient was made. The patient remained stable while under my care. The patient will be evaluated for further management. Administered Medications Discontinued Medications Sodium Chloride (Nss 1000ml) 1,000 mls @ 999 mls/hr IV .Q1H1M ONE Stop: 10/31/19 17:52 Last Infusion: 10/31/19 18:17 Dose: 0 mls/hr Documented by: [id number] Admin: 10/31/19 16:59 Dose: 999 mls/hr Documented by: [id number] Medical Decision Making Differential Diagnosis Differential Diagnosis includes but is not limited to dehydration, stroke, anemia, hypoglycemia, hyponatremia, hypernatremia, urinary tract infection, pneumonia, bronchitis, sepsis, gastroenteritis, additional abdominal pathology, metabolic abnormalities and infections. Medical Records Attestation: I reviewed the patient's medical records. Home Medications Current Medication List: was personally reviewed by me Laboratory Data Attestation: I reviewed the patient's lab results. Result diagrams: 10/31/19 17:10 10/31/19 17:10 Lab Results 10/31/19 10/31/19 Range/Units 17:10 17:10 WBC 15.23 H (4.8-10.8) K/uL RBC 3.73 L (4.7-6.1) M/uL Hgb 11.5 L (14.0-18.0) g/dL Hct 33.3 L (42-52) % MCV 89.3 (80-100) fL MCH 30.8 (25-34) pg MCHC 34.5 (32-36) g/dL RDW Std Deviation 51.9 H (36.4-46.3) fL RDW Coeff of Vineet 16.0 H (11.5-14.5) % Plt Count 344 (130-400) K/uL MPV 9.4 (7.4-10.4) fL Immature Gran % (Auto) 0.7 % Neut % (Auto) 82.1 % Lymph % (Auto) 8.7 % Cannon % (Auto) 7.9 % Eos % (Auto) 0.3 % Baso % (Auto) 0.3 % Immature Gran # (Auto) 0.11 H (0.00-0.02) K/uL Neut # (Auto) 12.49 H (1.4-6.5) K/uL Lymph # (Auto) 1.33 (1.2-3.4) K/uL Cannon # (Auto) 1.21 H (0.11-0.59) K/uL Eos # (Auto) 0.05 (0-0.5) K/uL Baso # (Auto) 0.04 (0-0.2) K/uL Sodium 125 L (136-145) mmol/L Potassium 5.0 (3.5-5.1) mmol/L Chloride 95 L (98-107) mmol/L Carbon Dioxide 21 (21-32) mmol/L Anion Gap 9.0 (3-11) BUN 40 H (7-18) mg/dl Creatinine 0.95 (0.6-1.4) mg/dl Est Cr Clr Drug Dosing Not Reportable Est GFR ( Amer) 85.5 Est GFR (Non-Af Amer) 73.7 BUN/Creatinine Ratio 42.1 H (10-20) Glucose 91 (70-99) mg/dl Calcium 9.6 (8.5-10.1) mg/dl Total Bilirubin 0.9 (0.2-1) mg/dl AST 24 (15-37) U/L ALT 39 (12-78) U/L Alkaline Phosphatase 275 H (45-117) U/L Total Protein 7.1 (6.4-8.2) gm/dl Albumin 2.7 L (3.4-5.0) gm/dl Globulin 4.4 H (2.5-4.0) gm/dl Albumin/Globulin Ratio 0.6 L (0.9-2) Lipase 282 (73-393) U/L Blood Pressure Blood Pressure Findings: Low blood pressure MDM Narrative Patient is an 83-year-old male past medical history of gastric cancer who is referred to the ER by hematology oncology for hyponatremia. Upon presentation he is found to have systolic blood pressures in the 80s. He does admit to feeling weak. IV was established blood was obtained and shows a leukocytosis of 15,000. Hemoglobin of 11. BMP with a sodium of 125. This is been trended down since October 23 upon review from 133 now to 125. LFTs bilirubin lipase is unremarkable. UA was pending. They do give him feeds through his jejunal tube. He normally gets 5 cans of water in combination with 5 cans of feed. Current thought was to decrease this to 4 cans of free water. As he was hypotensive I did elect to discuss the case with the hospitalist for further work-up and dolores arrington as he does appear to be fairly frail and this appears to be a recurrent. He has no other complaints at this time. Nothing to suggest infection although awaiting UA at this time. Impression & Plan Hypotension, Dehydration, Hyponatremia Discharge Plan Visit Data Chief Complaint: Abnormal Labs/Diagnostic Testing Stated Complaint: LOW SODIUM ED Provider: Edmundo Chang Discharge Problem: Hypotension, Dehydration, Hyponatremia Patient Disposition: Being Evaluated by Hospitalist Forms Stand Alone Forms: My [facility] Thumbs Up Prescriptions Prescriptions: No Action (DME) CPAP Machine Misc See Dose Instructions .ROUTE .MEDSUPPLY Qty: 1 RF: 0 (DME) Wheeled Walker Misc See Rx Instructions .ROUTE .MEDSUPPLY Qty: 1 RF: 0 simvastatin 10 mg tablet 10 mg feeding tube DAILY RF: 0 acetaminophen 500 mg/15 mL Liquid 1,000 mg feeding tube Q8H PRN (Reason: Mild Pain (Scale Score 1-4)) RF: 0 lansoprazole [Prevacid SoluTab] 30 mg tablet,disintegrat, delay rel 30 mg feeding tube DAILY RF: 0 Peptamen 1.5 0.068 gram- 1.5 kcal/mL Liquid See Rx Instructions .ROUTE .COMPLEX Qty: 6000 RF: 0 sennosides [senna] 8.8 mg/5 mL Syrup 8.8 mg feeding tube BID PRN (Reason: Constipation) Qty: 0 RF: 0 Referrals Referrals: Annia Dyer MD [Primary Care Provider] - Discharge Problem: Hypotension Qualifiers: Hypotension type: unspecified hypotension type Qualified Code(s): I95.9 - Hypotension, unspecified The scribe's documentation has been prepared under my direction and personally reviewed by me in its entirety. I confirm that the note above accurately ref lects all work, treatment, procedures, and medical decision making performed by me.
--- NOTE | 2019-10-31 20:21 | History & Physical Report ---
Date of Service October 31, 2019 Assessment & Plan (1) Hyponatremia: Pt is an 83yo gentleman with a PMHx significant for duodenal carcinoma s/p PEG tube placement for decompression and J-tube for feeds and medications, HTN, HLD, HFrEF, SRIKANTH who was sent in by his oncologist for further evaluation of hyponatremia and dehydration. Chronic Hyponatremia -Pt with Na level of 125 today; Asymptomatic, AAOx3 -Pending Urine and Serum osmolality to help determine cause. ?secondary to feed/fluid imbalance. 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 -last appointment with oncology today before admission; states plan is to optimize labs before starting chemotherapy. -continue with follow-up Hx of tube feeds -pt with J-tube for feeds; PEG tube for decompression after carcinoma in second part of duodenum. -continue home Peptamen 1.5 feeds--on discharge regimen was 5cans of Peptamen 1.5 with 6 cans of water. -Runs at home at 150cc/hr per , however discharge order was 170cc/hr -continue home prevacid via J-tube -continue home senna for constipation >2 days-via J tube HFrEF -recently diagnosed in Sep 2019 -Echo noted EF of 30-35% -no home medications HTN -Currently resolved. -Pt currently on hypotensive side -continue to monitor HLD -continue home simvastatin to be given via J-tube SRIKANTH -on cpap at home -continue FEN/GI: PEG tube--not in use, only for decompression; J tube for feeds and meds DVT prophylaxis: Lovenox 40mg SQ CODE STATUS: Full Dispo: Med-Surg History of Present Illness Primary Care Provider: Annia Dyer MD Pt presents with and niece in the room who also help provide the history. States he was diagnosed with duodenal carcinoma and had a PEG and J-tube placed in [place]. They followed up with oncology today who advised they come in to the ED based on his labs out of concern for his chronic hyponatremia and dehydration. Per , it has been a very frustrating process as he was recently discharged and would like "one set of instructions" to optimize his feed and fluid balance so he won't have to keep coming back. 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 Would like it optimized so he can start chemotherapy. Pt denies any changes currently, denies headache, chest pain, SOB, palpitations, N/V, diarrhea, dysuria, swelling in hands or feet. PMHx: Hx of duodenal carcinoma, SRIKANTH, HLD, resolved HTN-now hypotensive per and niece Allergies: NKDA SH: Lives at home with , home nursing comes in twice a week. Able to move around home with walker. Never smoker, no alcohol or recreational drug use. Allergies Allergy/AdvReac Type Severity Reaction Status Date / Time No Known Drug Allergies Allergy Verified 10/31/19 17:54 Home Medications Home Medications Medication Instructions Recorded Confirmed Type CPAP Machine #1 ea 07/13/19 10/18/19 Rx simvastatin 10 mg tablet 10 mg FEEDING TUBE DAILY 09/27/19 10/31/19 History Wheeled Walker #1 ea 10/02/19 10/18/19 Rx acetaminophen 1,000 mg FEEDING TUBE Q8H PRN 10/03/19 10/31/19 History nut.tx.impaired digest fxn See Rx Instructions .ROUTE 10/28/19 10/31/19 Rx [Peptamen 1.5] .COMPLEX #6000 ml sennosides [senna] 8.8 mg FEEDING TUBE BID PRN #0 ml 10/28/19 10/31/19 Rx lansoprazole [Prevacid SoluTab] 30 mg FEEDING TUBE DAILY 10/31/19 10/31/19 History Past Med/Surg History Medical History Basal cell carcinoma Carcinoma of duodenum Cardiomyopathy Carpal tunnel syndrome Chronic systolic CHF (congestive heart failure) Diverticulosis Goals of care, counseling/discussion HTN (hypertension) (Chronic) SRIKANTH (obstructive sleep apnea) (Chronic) Paroxysmal atrial fibrillation Pericardial effusion Surgical History H/O carpal tunnel repair S/P jejunostomy 09/17/19 Dr. Guardado at [facility]- Diagnostic laparoscopy, Laparoscopic 16F jejunostomy tube placement, 20F PEG with T-fasteners, Bilateral TAP blocks with Exparel S/P tonsillectomy Family History Father Cancer Denies family history of Crohn's disease Colorectal cancer Ulcerative colitis Social History Preferred Language: German Communication Ability: Effective Visual Impairment: No Limitations Cider Maker Required: No Beliefs That Will Affect Care: Amish Amish Beliefs: adventism marital status: Current Living Situation: Spouse current occupational status: retired Other Information That Helps Us Care for You: No Feels Safe at Home: Yes Safety Concerns: Feels Safe At This Time Smoking Status: Former smoker Do You Dip or Chew Tobacco: No ; Second Hand Exposure: No ; Tobacco Cessation Education Requested by Patient: No Hx Alcohol Use: No Hx Substance Use: No Seatbelt Use: always Review of Systems Review of Systems: All systems reviewed & are unremarkable except as noted in HPI & below Constitutional: no fever, no chills and no sweats Eyes: no worsening vision Ear, Nose, Mouth, Throat: no nasal congestion and no sore throat Respiratory: no cough and no dyspnea Cardiovascular: no chest pain and no palpitations Gastrointestinal: no nausea, no vomiting, no constipation and no diarrhea/loose stools Genitourinary: no dysuria Neurologic: no headache(s) Physical Exam Physical Exam: General: Alert, orientedx3. No acute distress Skin: hands with some senile purpura Psych: Appropriate mood and affect Neuro: No gross deficits HEENT: NC/AT Chest: Nontender to palpation. CV: Decreased heart sounds but RRR, Normal s1, s2. Resp: Breath sounds clear bilaterally on front, no increased effort of breathing. . Abdomen: BS+. Soft, nontender, nondistended. No guarding. Tubes present without draining or bleeding. Extremities: No edema in lower extremities bilaterally. Results & Data Vital Signs (Past 12 Hours) Vital Signs Temp Pulse Pulse Resp BP BP Pulse Ox 10/31/19 19:30 77 23 100/62 10/31/19 19:00 97 H 22 104/76 10/31/19 18:30 73 24 114/62 99 10/31/19 18:00 75 19 115/74 99 10/31/19 17:30 73 18 115/73 99 10/31/19 17:01 100 10/31/19 17:00 80 25 H 105/70 99 02/26/20 16:59 78 18 105/70 10/31/19 16:58 80 23 10/31/19 16:47 82 21 106/68 10/31/19 16:15 36.6 C 80 18 84/58 L 97 Code Status & VTE Plan VTE Prophylaxis Plan VTE Prophylaxis will be ordered: Yes Supervising Physician Co-Signing Physician Notes Attending addendum: I have physically seen this patient, have supervised the medical residents activities, and agree with the H&P unless as otherwise noted. Assessment and Plan: Hyponatremia/SIADH- Sodium 125, serum osmolality 273, urine osmolality 480. The patient and family have been confused about how to give patient free water in addition to his tube feeds. For now, will place him on sodium chloride tablets 2 g per feeding tube twice daily. We will ask nutrition to reassess the patient's free water status, coordinate with daytime physicians about the exact amount of free water the patient should be getting, and give a written prescription to the patient and family prior to discharge. Duodenal cancer- Following with Dr. Jordan from oncology, who referred patient to the ED. Patient's family reports that there is a request to have the electrolytes optimized before chemotherapy begins. GERD- Continue lansoprazole through feeding tube daily Hyperlipidemia- Continue simvastatin 10 mg daily through feeding tube. Remaining orders and notations as noted. Resident Activity Tracking Resident Involvement: Resident Care Provided Care Provided: Adult Hospital Medicine
[2019-10-31 21:11] LABS: Magnesium 2.2 mg/dl (1.8-2.4); Phosphorus 3.8 mg/dl (2.5-4.9)
[2019-10-31] MEDS ORDERED: ACETAMINOPHEN SOLN 1000MG/31.25ML UDC NG PRN (22:08)
[2019-10-31] MEDS ORDERED: SENNA 8.8 MG/5 ML UDP NG PRN (22:08)
[2019-10-31] MEDS ORDERED: ACETAMINOPHEN SOLN 160 MG/5 ML BTL NG PRN (22:19)
[2019-10-31] MEDS: ENOXAPARIN INJ 40 MG/0.4 ML SYR SQ SCH (22:37)
[2019-10-31] MEDS: PATIENT'S HEIGHT AND/OR WEIGHT NEEDED SCH (22:50)
[2019-11-01] MEDS: PATIENT'S HEIGHT AND/OR WEIGHT NEEDED SCH (00:04)
[2019-11-01] MEDS ORDERED: TUBE FEEDING WATER FLUSH NG PRN (00:25)
--- NOTE | 2019-11-01 00:31 | Billing Data ---
Date of Service November 01, 2019 Coding Level of Care Code 75381 Initial Inpt Care Lvl 3
[2019-11-01] MEDS: PEPTAMEN 1.5 CAL 1,000 ML BAG JT SCH ×2 (00:38→16:36)
[2019-11-01 07:21] LABS: Basophils # (auto) 0.04 K/uL (0-0.2); Basophils % (auto) 0.4 %; Eosinophils # (auto) 0.11 K/uL (0-0.5); Eosinophils % (auto) 1.2 %; Hematocrit (blood only) 33.3 % (42-52); Hemoglobin 11.5 g/dL (14.0-18.0); Immature Granulocytes # (auto) 0.07 K/uL (0.00-0.02); Immature Granulocytes % (auto) 0.8 %; Lymphocytes # (auto) 1.09 K/uL (1.2-3.4); Lymphocytes % (auto) 12.1 %; Mean Corpuscular Hemoglobin 31.1 pg (25-34); Mean Corpuscular Hgb Conc 34.5 g/dL (32-36); Mean Platelet Volume 9.4 fL (7.4-10.4); Monocytes # (auto) 0.94 K/uL (0.11-0.59); Monocytes % (auto) 10.4 %; Neutrophils # (auto) 6.75 K/uL (1.4-6.5); Neutrophils % (auto) 75.1 %; Platelet Count 319 K/uL (130-400); RDW Coefficient of Variation 16.2 % (11.5-14.5); RDW Standard Deviation 53.1 fL (36.4-46.3)
[2019-11-01 07:57] LABS: Albumin Level 2.5 gm/dl (3.4-5.0); Calcium 9.4 mg/dl (8.5-10.1); Creatinine Clr Calc Pharmacy 72.2 ml/min; Est GFR (African American) 96.2; Magnesium 2.2 mg/dl (1.8-2.4); Potassium 4.6 mmol/L (3.5-5.1)
[2019-11-01 08:00] LABS: Albumin Globulin Ratio 0.6 (0.9-2); Bilirubin,Total 0.9 mg/dl (0.2-1); Globulin 4.5 gm/dl (2.5-4.0); Phosphorus 3.7 mg/dl (2.5-4.9)
[2019-11-01] MEDS: SIMVASTATIN 10 MG TAB JT SCH (09:13)
[2019-11-01] MEDS: LANSOPRAZOLE 30 MG SOLTAB JT SCH (09:14)
[2019-11-01] MEDS ORDERED: SODIUM CHLORIDE 0.9% 1000ML 1,000 ML IV SCH (10:15)
--- NOTE | 2019-11-01 13:06 | Nephrology Consultation ---
Date of Consultation November 01, 2019 Assessment & Plan (1) Hyponatremia: Acute on chronic hyponatremia. The patient appears asymptomatic. Sodium is correcting appropriately. He was found to be hypovolemic on admission. Urine studies consistent with dehydration. There is a questionable history of SIADH but this is difficult to substantiate at this time. Primary goal is correct volume status. The patient denies excessive free water by mouth. Ultimately, the major issue is maintaining electrolyte balance and nutritional status outside the hospital. Treatment of his cancer has been delayed due to complications with management. He is appropriately frustrated. Concerns will be discussed with his oncologist. In the interim, we will continue IV saline while monitoring I/O's and routine laboratory studies. Defer to dietary and pharmacy regarding tube feeds. History of Present Illness Reason for Consultation: Hyponatremia Requesting Physician: Froy Salvador MD Attending Physician: Froy Salvador MD History of Present Illness Mr. Alber Guzmán is a 83-year-old male seen in consultation this morning regarding hyponatremia. The case was discussed with Dr. Rubio. The patient was seen and evaluated wit his at the bedside. Mr. Guzmán was evaluated by Dr. Flynn during a prior hospital admission. He has a longstanding history of hyponatremia and multiple admissions for acute on chronic changes in serum sodium. The patient was admitted to [facility] at the advice of his oncologist for management of worsening hyponatremia. Mr. Guzmán denies significant symptoms of his dysnatremia. Medical history is notable for duodenal cancer. Treatment has been delayed due to metabolic and nutritional issues. The patient has a G-tube for venting. He takes some fluids by mouth. He receives tube feeds via a J-tube. He has been treated for hypertension, SRIKANTH, as well as a history of diastolic heart failure. There is also a documented history of paroxysmal atrial fibrillation as well as chronic anemia. Serum sodium was 125 mmol/L on admission yesterday. IV NSS has been provided and sodium has increased to 127 mmol/L. Electrolytes are otherwise acceptable. Creatinine stable. Allergies Allergy/AdvReac Type Severity Reaction Status Date / Time No Known Drug Allergies Allergy Verified 10/31/19 17:54 Home Medications Home Medications Medication Instructions Recorded Confirmed Type CPAP Machine #1 ea 07/13/19 10/18/19 Rx simvastatin 10 mg tablet 10 mg FEEDING TUBE DAILY 09/27/19 10/31/19 History Wheeled Walker #1 ea 10/02/19 10/18/19 Rx acetaminophen 1,000 mg FEEDING TUBE Q8H PRN 10/03/19 10/31/19 History nut.tx.impaired digest fxn See Rx Instructions .ROUTE 10/28/19 10/31/19 Rx [Peptamen 1.5] .COMPLEX #6000 ml sennosides [senna] 8.8 mg FEEDING TUBE BID PRN #0 ml 10/28/19 10/31/19 Rx lansoprazole [Prevacid SoluTab] 30 mg FEEDING TUBE DAILY 10/31/19 10/31/19 History Patient History Medical History Basal cell carcinoma Carcinoma of duodenum Cardiomyopathy Carpal tunnel syndrome Chronic systolic CHF (congestive heart failure) Diverticulosis Goals of care, counseling/discussion HTN (hypertension) (Chronic) SRIKANTH (obstructive sleep apnea) (Chronic) Paroxysmal atrial fibrillation Pericardial effusion Surgical History H/O carpal tunnel repair S/P jejunostomy 09/17/19 Dr. Guardado at [facility]- Diagnostic laparoscopy, Laparoscopic 16F jejunostomy tube placement, 20F PEG with T-fasteners, Bilateral TAP blocks with Exparel S/P tonsillectomy Family History Father Cancer Denies family history of Crohn's disease Colorectal cancer Ulcerative colitis Social History (Updated 11/01/19 @ 11:11 by Pita Madrid) Preferred Language: Montenegrin Communication Ability: Effective Visual Impairment: No Limitations Getter Welder Required: No Beliefs That Will Affect Care: Mosque Mosque Beliefs: confucianism marital status: Current Living Situation: Spouse current occupational status: retired Other Information That Helps Us Care for You: No Feels Safe at Home: Yes Safety Concerns: Feels Safe At This Time Smoking Status: Former smoker Do You Dip or Chew Tobacco: No ; Second Hand Exposure: No ; Tobacco Cessation Education Requested by Patient: No Hx Alcohol Use: No Hx Substance Use: No Seatbelt Use: always Review of Systems Review of Systems: All systems reviewed & are unremarkable except as noted in HPI & below Constitutional: + weakness and + weight loss Genitourinary: no problem reported Physical Exam Constitutional: well developed, + thin and + frail appearing; no acute distress Eyes: no scleral abnormality and no corneal abnormality ENMT: Mouth: no oral mucosal abnormality and oral mucous membranes not dry Neck: normal visual inspection and trachea midline Respiratory: normal respiratory effort Auscultation: lungs clear to auscultation bilaterally Cardiovascular: Rate/Rhythm: regular rate Heart Sounds: normal S1 and normal S2 Extremities: no edema Gastrointestinal (Abdomen): Percussion/Palpation: abdomen soft; abdomen nontender J tube and G tube noted Musculoskeletal: Extremities: no cyanosis and no clubbing Skin: normal turgor; no lesions Neurologic: Motor/Sensory: no tremor and no asterixis Psychiatric: Orientation: alert and oriented x 3 Results & Data Vital Signs (Past 12 Hours) Vital Signs Temp Pulse Resp BP Pulse Ox 11/01/19 07:42 36.3 C L 76 18 106/71 92 11/01/19 04:16 36.3 C L 68 19 97/71 L 92 Laboratory Results Laboratory Results - last 24 hr 10/31/19 10/31/19 10/31/19 17:10 17:10 17:10 WBC 15.23 H RBC 3.73 L Hgb 11.5 L Hct 33.3 L MCV 89.3 MCH 30.8 MCHC 34.5 RDW Std Deviation 51.9 H RDW Coeff of Vineet 16.0 H Plt Count 344 MPV 9.4 Immature Gran % (Auto) 0.7 Neut % (Auto) 82.1 Lymph % (Auto) 8.7 Rice % (Auto) 7.9 Eos % (Auto) 0.3 Baso % (Auto) 0.3 Immature Gran # (Auto) 0.11 H Neut # (Auto) 12.49 H Lymph # (Auto) 1.33 Rice # (Auto) 1.21 H Eos # (Auto) 0.05 Baso # (Auto) 0.04 Sodium 125 L Potassium 5.0 Chloride 95 L Carbon Dioxide 21 Anion Gap 9.0 BUN 40 H Creatinine 0.95 Est Cr Clr Drug Dosing Not Reportable Est GFR ( Amer) 85.5 Est GFR (Non-Af Amer) 73.7 BUN/Creatinine Ratio 42.1 H Glucose 91 POC Glucose Osmolality 273 L Calcium 9.6 Phosphorus 3.8 Magnesium 2.2 Total Bilirubin 0.9 AST 24 ALT 39 Alkaline Phosphatase 275 H Total Protein 7.1 Albumin 2.7 L Globulin 4.4 H Albumin/Globulin Ratio 0.6 L Lipase 282 Urine Color Urine Appearance Urine pH Ur Specific [place] Urine Protein Urine Glucose (UA) Urine Ketones Urine Blood Urine Nitrite Urine Bilirubin Urine Urobilinogen Ur Leukocyte Esterase Urine Osmolality 10/31/19 10/31/19 11/01/19 19:44 19:44 00:17 WBC RBC Hgb Hct MCV MCH MCHC RDW Std Deviation RDW Coeff of Vineet Plt Count MPV Immature Gran % (Auto) Neut % (Auto) Lymph % (Auto) Rice % (Auto) Eos % (Auto) Baso % (Auto) Immature Gran # (Auto) Neut # (Auto) Lymph # (Auto) Rice # (Auto) Eos # (Auto) Baso # (Auto) Sodium Potassium Chloride Carbon Dioxide Anion Gap BUN Creatinine Est Cr Clr Drug Dosing Est GFR ( Amer) Est GFR (Non-Af Amer) BUN/Creatinine Ratio Glucose POC Glucose 93 Osmolality Calcium Phosphorus Magnesium Total Bilirubin AST ALT Alkaline Phosphatase Total Protein Albumin Globulin Albumin/Globulin Ratio Lipase Urine Color Dark Yellow Urine Appearance Clear Urine pH 5.0 Ur Specific [place] 1.018 Urine Protein Negative Urine Glucose (UA) Negative Urine Ketones Negative Urine Blood Negative Urine Nitrite Negative Urine Bilirubin Negative Urine Urobilinogen Negative Ur Leukocyte Esterase Negative Urine Osmolality 480 L 11/01/19 11/01/19 11/01/19 06:35 07:03 07:03 WBC 9.00 RBC 3.70 L Hgb 11.5 L Hct 33.3 L MCV 90.0 MCH 31.1 MCHC 34.5 RDW Std Deviation 53.1 H RDW Coeff of Vineet 16.2 H Plt Count 319 MPV 9.4 Immature Gran % (Auto) 0.8 Neut % (Auto) 75.1 Lymph % (Auto) 12.1 Rice % (Auto) 10.4 Eos % (Auto) 1.2 Baso % (Auto) 0.4 Immature Gran # (Auto) 0.07 H Neut # (Auto) 6.75 H Lymph # (Auto) 1.09 L Rice # (Auto) 0.94 H Eos # (Auto) 0.11 Baso # (Auto) 0.04 Sodium 127 L Potassium 4.6 Chloride 97 L Carbon Dioxide 20 L Anion Gap 10.0 BUN 36 H Creatinine 0.79 Est Cr Clr Drug Dosing 72.2 Est GFR ( Amer) 96.2 Est GFR (Non-Af Amer) 83.0 BUN/Creatinine Ratio 46.0 H Glucose 124 H POC Glucose 117 H Osmolality Calcium 9.4 Phosphorus 3.7 Magnesium 2.2 Total Bilirubin 0.9 AST 25 ALT 38 Alkaline Phosphatase 248 H Total Protein 7.0 Albumin 2.5 L Globulin 4.5 H Albumin/Globulin Ratio 0.6 L Lipase Urine Color Urine Appearance Urine pH Ur Specific [place] Urine Protein Urine Glucose (UA) Urine Ketones Urine Blood Urine Nitrite Urine Bilirubin Urine Urobilinogen Ur Leukocyte Esterase Urine Osmolality 11/01/19 11:50 WBC RBC Hgb Hct MCV MCH MCHC RDW Std Deviation RDW Coeff of Vineet Plt Count MPV Immature Gran % (Auto) Neut % (Auto) Lymph % (Auto) Rice % (Auto) Eos % (Auto) Baso % (Auto) Immature Gran # (Auto) Neut # (Auto) Lymph # (Auto) Rice # (Auto) Eos # (Auto) Baso # (Auto) Sodium Potassium Chloride Carbon Dioxide Anion Gap BUN Creatinine Est Cr Clr Drug Dosing Est GFR ( Amer) Est GFR (Non-Af Amer) BUN/Creatinine Ratio Glucose POC Glucose 105 H Osmolality Calcium Phosphorus Magnesium Total Bilirubin AST ALT Alkaline Phosphatase Total Protein Albumin Globulin Albumin/Globulin Ratio Lipase Urine Color Urine Appearance Urine pH Ur Specific [place] Urine Protein Urine Glucose (UA) Urine Ketones Urine Blood Urine Nitrite Urine Bilirubin Urine Urobilinogen Ur Leukocyte Esterase Urine Osmolality PG Care Time/CCT Total # of Minutes Spent Total Time Spent with Patient: Total time spent is greater than 50% in coordination of care (as documented) at patient's floor/unit and/or counseling patient: Coding Level of Care Code 10608 Inpt Consult Level 3 Diagnoses Hyponatremia E87.1
--- NOTE | 2019-11-01 18:36 | Hospitalist Progress Note ---
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 Had hypotension with BP in the 80s systolic on arrival. Was just discharged again after another admission for hyponatremia and dehydration, Pseudomonas UTI -Pt with Na level of 125 on admission, improving to 127 with NS IVFs Asymptomatic, AAOx3 and actually looks the best I have seen him in a long time -Urine Osm consistent with dehydration -continue Peptamen 1.5 tube feeds at 80 mL/hr and free H2O flushes 90 ml/hr over 16 hours Internetworking Technician involece Appreciate Nephrology consult -dc IVFs after 2nd liter and start NaCl 1 gm per J tube bid -will discuss with Oncology about outpt routine labs and IVFs with NS 1-2x/week starting Tuesday Follow BMP -continue home prevacid via J-tube -continue home senna for constipation >2 days-via J tube (2) Hypotension: now resolved with IVFs NS follow , he runs low typically (3) Dehydration: resolving (4) Pericardial effusion: small to moderate on recent ECHO follows with Cardio plan to repeat ECHO in 2 months (5) Hyperkalemia: resolved with IVFs follow (6) Chronic systolic CHF (congestive heart failure): Cardiomyopathy with reduced ejection fraction Was dehydrated on admission, now euvolemic Beta-alva and GRACIELA was not previously tolerated due to hypotension Following with cardiology as outpatient (7) Paroxysmal atrial fibrillation: Lone Afib after abd surgery at [facility] not on AC at this time, BP can't tolerate metoprolol (8) Carcinoma of duodenum: Causing gastric outlet obstruction Stable, following with [facility] and Dr. Jordan. Anticipate chemotherapy in the future, will follow with heme-onc on discharge. Has had a port placed 2/5. continue Tube feeds as above (9) S/P jejunostomy: for gastric outlet obstruction (10) SRIKANTH (obstructive sleep apnea): continue CPAP qhs (11) DVT prophylaxis: Lovenox Dispo-remain on medical floor Admission and Anticipated Discharge Date Admission Date: October 31, 2019 Anticipated date of discharge: 11/04/19 Subjective Pt feeling well, no compalints. Moving bowels with soft stool every other day, no diarrhea. No abd pain, denies CP or OSB. Has been ambulating and feeling stronger. reports she was giving 5 cans of tube feeds and 6 cans of water daily for the two days she was home since last admission/discharge. She is anxious for pt to get his chemo treatment started I discussed the case with Nephrology and Internetworking Technician Review of Systems Review of Systems: All systems reviewed & are unremarkable except as noted in HPI & below Physical Exam Constitutional: WD/WN, vitals as above Eyes: + anicteric sclerae ENMT: external ear and nose normal, oropharynx normal Neck: trachea midline, no thyromegaly Respiratory: normal respiratory effort, lungs clear to auscultation Cardiovascular: RRR, no murmur, no edema Chest (Breasts): Chest: normal inspection of chest Gastrointestinal (Abdomen): Inspection/Auscultation: normal bowel sounds; + abdomen abnormal to inspection (G and J tubes in palce, dressings around and c/d/i) Percussion/Palpation: abdomen soft; abdomen nontender Musculoskeletal: Extremities: extremities normal to inspection; no cyanosis and no clubbing Skin: no rashes, warm and dry Neurologic: moves all extremities and awake; no focal motor deficits Psychiatric: A+Ox3, euthymic affect Lymphatic: no lymphedema Results & Data ([facility]) Vital Signs (Past 12 Hours) Vital Signs Temp Pulse Resp BP Pulse Ox 11/01/19 07:42 36.3 C L 76 18 106/71 92 Laboratory Results labs reviewed PG Care Time/CCT Total # of Minutes Spent Total Time Spent with Patient: Total time spent is greater than 50% in coordination of care (as documented) at patient's floor/unit and/or counseling patient: Coding Level of Care Code 63954 Subseq Hosp Care Lvl 3 Diagnoses Hyponatremia E87.1 Hypotension I95.9 Hypotension type: unspecified hypotension type Dehydration E86.0 Pericardial effusion I31.3 Hyperkalemia E87.5 Chronic systolic CHF (congestive heart failure) I50.22 Paroxysmal atrial fibrillation I48.0 Carcinoma of duodenum C17.0 S/P jejunostomy Z93.4 SRIKANTH (obstructive sleep apnea) G47.33 DVT prophylaxis Z29.9 (1) Hypotension Hypotension type: unspecified hypotension type Qualified Code(s): I95.9 - Hypotension, unspecified
[2019-11-01] MEDS: ENOXAPARIN INJ 40 MG/0.4 ML SYR SQ SCH (20:43)
[2019-11-02 05:54] LABS: Basophils # (auto) 0.02 K/uL (0-0.2); Basophils % (auto) 0.2 %; Eosinophils # (auto) 0.09 K/uL (0-0.5); Hematocrit (blood only) 33.1 % (42-52); Hemoglobin 11.3 g/dL (14.0-18.0); Immature Granulocytes # (auto) 0.04 K/uL (0.00-0.02); Immature Granulocytes % (auto) 0.5 %; Lymphocytes # (auto) 0.97 K/uL (1.2-3.4); Mean Corpuscular Hgb Conc 34.1 g/dL (32-36); Mean Corpuscular Volume 90.7 fL (80-100); Mean Platelet Volume 9.8 fL (7.4-10.4); Monocytes # (auto) 0.92 K/uL (0.11-0.59); Monocytes % (auto) 10.4 %; Neutrophils % (auto) 76.9 %; Platelet Count 316 K/uL (130-400); RDW Coefficient of Variation 16.1 % (11.5-14.5); RDW Standard Deviation 53.6 fL (36.4-46.3); Red Blood Count 3.65 M/uL (4.7-6.1); White Blood Count 8.84 K/uL (4.8-10.8)
[2019-11-02 06:27] LABS: Albumin Level 2.4 gm/dl (3.4-5.0); BUN Creatinine Ratio 41.1 (10-20); Calcium 9.2 mg/dl (8.5-10.1); Creatinine Clr Calc Pharmacy 69.1 ml/min; Est GFR (African American) 94.1; Est GFR (Non-African American) 81.2; Magnesium 2.1 mg/dl (1.8-2.4); Potassium 4.4 mmol/L (3.5-5.1)
[2019-11-02 06:32] LABS: Albumin Globulin Ratio 0.6 (0.9-2); Bilirubin,Total 0.9 mg/dl (0.2-1); Globulin 4.3 gm/dl (2.5-4.0); Phosphorus 2.9 mg/dl (2.5-4.9); Total Protein 6.7 gm/dl (6.4-8.2)
[2019-11-02] MEDS: LANSOPRAZOLE 30 MG SOLTAB JT SCH (08:35)
[2019-11-02] MEDS: SIMVASTATIN 10 MG TAB JT SCH (08:35)
[2019-11-02] MEDS: SODIUM CHLORIDE 1 GM TABLET PO SCH ×2 (08:36→20:14)
--- NOTE | 2019-11-02 10:36 | Nephrology Progress Note ---
Date of Service November 02, 2019 Assessment & Plan (1) Hyponatremia: Acute on chronic hyponatremia. Asymptomatic. Improving appropriately in response to IV saline + positive fluid balance. This is clinically consistent with dehydration and poor oral solute intake and not SIADH. Ultimately, the major issue is maintaining electrolyte balance and nutritional status outside the hospital. Treatment of his cancer has been delayed due to complications with management. He is receiving TF @ 80 ml/hr + 90 ml free water x 16 hours/d. Additional oral NaCl replacement has been started. Current plan of care is to monitor over the weekend and discharge Tuesday with twice weekly labs in the outpatient infusion center via oncology. Saline infusions can be provided in the cancer center as needed. At this time, nephrology will follow labs peripherally as an inpatient and outpatient follow up can be arranged with me in clinic as needed. Alber expressed understanding. Subjective Alber feels well this morning. He notes that he feels stronger than he did coming into the hospital. He tolerated IVF fluids well. Oral NaCl was started yesterday and he was also able to tolerate this. He denies significant GI symptoms. I discussed the plan of care with Dr. Rubio. Review of Systems Review of Systems: All systems reviewed & are unremarkable except as noted in HPI & below Physical Exam Constitutional: well developed, + thin and + frail appearing; no acute distress Eyes: no scleral abnormality and no corneal abnormality ENMT: Mouth: no oral mucosal abnormality and oral mucous membranes not dry Neck: normal visual inspection and trachea midline Respiratory: normal respiratory effort Auscultation: lungs clear to auscultation bilaterally Cardiovascular: Rate/Rhythm: regular rate Heart Sounds: normal S1 and normal S2 Extremities: no edema Gastrointestinal (Abdomen): Percussion/Palpation: abdomen soft; abdomen nontender Musculoskeletal: Extremities: no cyanosis and no clubbing Skin: normal turgor; no lesions Neurologic: Motor/Sensory: no tremor and no asterixis Psychiatric: Orientation: alert and oriented x 3 Results & Data Vital Signs (Past 12 Hours) Vital Signs Temp Pulse Pulse Pulse Resp BP Pulse Ox 11/02/19 07:30 37.0 C 77 16 105/66 97 11/02/19 03:23 92 H 18 97 11/02/19 03:04 36.5 C 87 18 100/70 97 11/01/19 23:58 36.5 C 70 18 115/76 98 11/01/19 22:57 86 18 94 Laboratory Results Laboratory Results - last 24 hr 11/01/19 11/01/19 11/01/19 11:50 19:04 23:51 WBC RBC Hgb Hct MCV MCH MCHC RDW Std Deviation RDW Coeff of Vineet Plt Count MPV Immature Gran % (Auto) Neut % (Auto) Lymph % (Auto) [place] % (Auto) Eos % (Auto) Baso % (Auto) Immature Gran # (Auto) Neut # (Auto) Lymph # (Auto) [place] # (Auto) Eos # (Auto) Baso # (Auto) Sodium Potassium Chloride Carbon Dioxide Anion Gap BUN Creatinine Est Cr Clr Drug Dosing Est GFR ( Amer) Est GFR (Non-Af Amer) BUN/Creatinine Ratio Glucose POC Glucose 105 H 156 H 119 H Calcium Phosphorus Magnesium Total Bilirubin AST ALT Alkaline Phosphatase Total Protein Albumin Globulin Albumin/Globulin Ratio 11/02/19 11/02/19 11/02/19 05:18 05:18 05:37 WBC 8.84 RBC 3.65 L Hgb 11.3 L Hct 33.1 L MCV 90.7 MCH 31.0 MCHC 34.1 RDW Std Deviation 53.6 H RDW Coeff of Vineet 16.1 H Plt Count 316 MPV 9.8 Immature Gran % (Auto) 0.5 Neut % (Auto) 76.9 Lymph % (Auto) 11.0 [place] % (Auto) 10.4 Eos % (Auto) 1.0 Baso % (Auto) 0.2 Immature Gran # (Auto) 0.04 H Neut # (Auto) 6.80 H Lymph # (Auto) 0.97 L [place] # (Auto) 0.92 H Eos # (Auto) 0.09 Baso # (Auto) 0.02 Sodium 129 L Potassium 4.4 Chloride 100 Carbon Dioxide 20 L Anion Gap 8.0 BUN 34 H Creatinine 0.82 Est Cr Clr Drug Dosing 69.1 Est GFR ( Amer) 94.1 Est GFR (Non-Af Amer) 81.2 BUN/Creatinine Ratio 41.1 H Glucose 116 H POC Glucose 142 H Calcium 9.2 Phosphorus 2.9 Magnesium 2.1 Total Bilirubin 0.9 AST 21 ALT 35 Alkaline Phosphatase 220 H Total Protein 6.7 Albumin 2.4 L Globulin 4.3 H Albumin/Globulin Ratio 0.6 L PG Care Time/CCT Total # of Minutes Spent Total Time Spent with Patient: Total time spent is greater than 50% in coordination of care (as documented) at patient's floor/unit and/or counseling patient: Coding Level of Care Code 15877 Subseq Hosp Care Lvl 3 Diagnoses Hyponatremia E87.1
[2019-11-02] MEDS: PEPTAMEN 1.5 CAL 1,000 ML BAG JT SCH (15:32)
--- NOTE | 2019-11-02 20:27 | Hospitalist Progress Note ---
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 Had hypotension with BP in the 80s systolic on arrival. Was just discharged again after another admission for hyponatremia and dehydration, Pseudomonas UTI Secondary to dehydration and poor solute intake -Pt with Na level of 125 on admission, improved to 129 now after receiving 2 L NS IVFs Asymptomatic, AAOx3 and actually looks the best I have seen him in a long time -Urine Osm consistent with dehydration -continue Peptamen 1.5 tube feeds at 80 mL/hr and free H2O flushes 90 ml/hr over 16 hours-adjust free water flushes as needed for sodium levels -Added salt tablets today 1 g p.o. twice daily -Continue to follow serial BMP -Appreciate dietary involvement Appreciate Nephrology consult -Oncology agreeable to starting him on once to twice weekly routine trips to the cancer center as an outpatient for labs with the possibility of receiving normal saline to keep his sodium levels up after discharge so that he can begin treatment for his duodenal carcinoma with gastric outlet obstruction which ultimately will allow him to eat again hopefully -Planning to follow-up with cancer center on Tuesday if ends up being discharged on Tuesday if sodium levels remain stable to improved -continue home Prevacid via J-tube (2) Hypotension: now resolved with IVFs NS follow , he runs low typically in the 90s to 100 range for systolic blood pressure (3) Dehydration: Resolved with IV fluids (4) Pericardial effusion: small to moderate on recent ECHO follows with Cardio plan to repeat ECHO in 2 months (5) Hyperkalemia: resolved with IVFs follow (6) Chronic systolic CHF (congestive heart failure): Cardiomyopathy with reduced ejection fraction Was dehydrated on admission, now euvolemic Beta-alva and GRACIELA was not previously tolerated due to hypotension Following with cardiology as outpatient (7) Paroxysmal atrial fibrillation: Lone Afib after abd surgery at [facility] not on AC at this time, BP can't tolerate metoprolol (8) Carcinoma of duodenum: Causing gastric outlet obstruction Stable, following with [facility] and Dr. Vista. Anticipate chemotherapy in the future, will follow with heme-onc on discharge. Has had a port placed 10/10.-I removed the dressing from port placement on 11/02 which had been in place for over 3 weeks-fortunately wound appears normal with Steri-Strips with dried blood in place-we will remove Steri-Strips tomorrow continue Tube feeds as above (9) S/P jejunostomy: for gastric outlet obstruction (10) SRIKANTH (obstructive sleep apnea): continue CPAP qhs (11) DVT prophylaxis: Lovenox Dispo-remain on medical floor, is ambulating the halls with walker 3 times daily and doing well Admission and Anticipated Discharge Date Admission Date: October 31, 2019 Anticipated date of discharge: 11/04/19 Subjective Patient reports feeling very well. Today is his birthday and he received a balloon. He has been ambulating in the halls and feeling strong. Denies any chest pain or shortness of breath, no abdominal pains or nausea. He is moving his bowels regularly. remains frustrated about his sodium levels and what the future plan will be. I discussed his case with nephrology today. I also discussed his case with his oncologist and he is agreeable to setting up routine blood work with potential for normal saline infusions as an outpatient at the cancer center to keep him hydrated after discharge Review of Systems Review of Systems: All systems reviewed & are unremarkable except as noted in HPI & below Physical Exam Constitutional: WD/WN, vitals as above Eyes: + anicteric sclerae Neck: trachea midline, no thyromegaly Respiratory: normal respiratory effort, lungs clear to auscultation Cardiovascular: RRR, no murmur, no edema Chest (Breasts): Chest: + vascular access device or port (Dressing in place over right sided port has never been removed since it was placed on 10/10-removed today and Steri-Strips have dried blood on them, no surrounding erythema) Gastrointestinal (Abdomen): normal bowel sounds, soft, nontender, no hepatosplenomegaly Inspection/Auscultation: normal bowel sounds; + abdomen abnormal to inspection (G and J tubes in palce, dressings around and c/d/i) Percussion/Palpation: abdomen soft; abdomen nontender Musculoskeletal: Extremities: extremities normal to inspection; no cyanosis and no clubbing Skin: no rashes, warm and dry Neurologic: moves all extremities and awake; no focal motor deficits Psychiatric: A+Ox3, euthymic affect Lymphatic: no lymphedema Results & Data ([facility]) Vital Signs (Past 12 Hours) Vital Signs Temp Pulse Pulse Resp BP BP Pulse Ox 11/02/19 19:35 36.4 C L 77 20 108/73 100 11/02/19 15:16 36.3 C L 81 20 96/64 L 98 Laboratory Results Labs reviewed, sodium up to 129, bicarbonate stable at 20, creatinine excellent at 0.82 Hemoglobin mildly low at 11.3 PG Care Time/CCT Total # of Minutes Spent Total Time Spent with Patient: Total time spent is greater than 50% in coordination of care (as documented) at patient's floor/unit and/or counseling patient: Coding Level of Care Code 25716 Subseq Hosp Care Lvl 3 Diagnoses Hyponatremia E87.1 Hypotension I95.9 Hypotension type: unspecified hypotension type Dehydration E86.0 Pericardial effusion I31.3 Hyperkalemia E87.5 Chronic systolic CHF (congestive heart failure) I50.22 Paroxysmal atrial fibrillation I48.0 Carcinoma of duodenum C17.0 S/P jejunostomy Z93.4 SRIKANTH (obstructive sleep apnea) G47.33 DVT prophylaxis Z29.9 (1) Hypotension Hypotension type: unspecified hypotension type Qualified Code(s): I95.9 - Hypotension, unspecified
[2019-11-02] MEDS: ENOXAPARIN INJ 40 MG/0.4 ML SYR SQ SCH (21:31)
[2019-11-03 06:09] LABS: Basophils # (auto) 0.02 K/uL (0-0.2); Basophils % (auto) 0.2 %; Eosinophils # (auto) 0.12 K/uL (0-0.5); Eosinophils % (auto) 1.4 %; Hematocrit (blood only) 34.2 % (42-52); Hemoglobin 11.5 g/dL (14.0-18.0); Immature Granulocytes # (auto) 0.04 K/uL (0.00-0.02); Immature Granulocytes % (auto) 0.5 %; Lymphocytes # (auto) 1.16 K/uL (1.2-3.4); Lymphocytes % (auto) 13.4 %; Mean Corpuscular Hemoglobin 30.7 pg (25-34); Mean Corpuscular Hgb Conc 33.6 g/dL (32-36); Mean Corpuscular Volume 91.2 fL (80-100); Mean Platelet Volume 10.2 fL (7.4-10.4); Monocytes # (auto) 1.07 K/uL (0.11-0.59); Monocytes % (auto) 12.4 %; Neutrophils # (auto) 6.23 K/uL (1.4-6.5); Neutrophils % (auto) 72.1 %; Platelet Count 319 K/uL (130-400); RDW Coefficient of Variation 16.2 % (11.5-14.5); RDW Standard Deviation 54.4 fL (36.4-46.3); Red Blood Count 3.75 M/uL (4.7-6.1); White Blood Count 8.64 K/uL (4.8-10.8)
[2019-11-03] MEDS: PEPTAMEN 1.5 CAL 1,000 ML BAG JT SCH ×3 (06:30→16:04)
[2019-11-03 06:49] LABS: Albumin Level 2.5 gm/dl (3.4-5.0); BUN Creatinine Ratio 38.6 (10-20); Calcium 9.2 mg/dl (8.5-10.1); Est GFR (African American) 98.2; Est GFR (Non-African American) 84.7; Magnesium 2.2 mg/dl (1.8-2.4); Potassium 4.2 mmol/L (3.5-5.1)
[2019-11-03 06:52] LABS: Albumin Globulin Ratio 0.6 (0.9-2); Bilirubin,Total 0.9 mg/dl (0.2-1); Globulin 4.4 gm/dl (2.5-4.0); Phosphorus 2.6 mg/dl (2.5-4.9); Total Protein 6.9 gm/dl (6.4-8.2)
[2019-11-03] MEDS: SODIUM CHLORIDE 1 GM TABLET PO SCH ×3 (09:01→21:01)
[2019-11-03] MEDS: SIMVASTATIN 10 MG TAB JT SCH (09:08)
[2019-11-03] MEDS: LANSOPRAZOLE 30 MG SOLTAB JT SCH (09:12)
--- NOTE | 2019-11-03 17:00 | Hospitalist Progress Note ---
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 Had hypotension with BP in the 80s systolic on arrival. Was just discharged again after another admission for hyponatremia and dehydration, Pseudomonas UTI Secondary to dehydration and poor solute intake. Is likely now with reset osmostat too around 130-133 -Pt with Na level of 125 on admission, improved to 129 after receiving 2 L NS IVFs After IVFs stopped and NaCl tabs started, Na+ drifting downward today to 128 Asymptomatic, AAOx3 and actually looks the best I have seen him in a long time -Urine Osm consistent with dehydration -continue Peptamen 1.5 tube feeds at 80 mL/hr and DECREASE free H2O flushes to 80 ml/hr over 16 hours-adjust free water flushes as needed for sodium levels -Added salt tablets and will INCREASE to 1 g p.o.three times daily -Continue to follow serial BMP -Appreciate dietary involvement Appreciate Nephrology consult -Oncology agreeable to starting him on once to twice weekly routine trips to the cancer center as an outpatient for labs with the possibility of receiving normal saline to keep his sodium levels up after discharge so that he can begin treatment for his duodenal carcinoma with gastric outlet obstruction which ultimately will allow him to eat again hopefully -Planning to follow-up with cancer center on Tuesday if ends up being discharged on Tuesday if sodium levels remain stable to improved -continue home Prevacid via J-tube (2) Hypotension: now resolved with IVFs NS follow , he runs low typically in the 90s to 100 range for systolic blood pressure (3) Dehydration: Resolved with IV fluids (4) Pericardial effusion: small to moderate on recent ECHO follows with Cardio plan to repeat ECHO in 2 months (5) Hyperkalemia: resolved with IVFs follow (6) Chronic systolic CHF (congestive heart failure): Cardiomyopathy with reduced ejection fraction Was dehydrated on admission, now euvolemic Beta-alva and GRACIELA was not previously tolerated due to hypotension Following with cardiology as outpatient (7) Paroxysmal atrial fibrillation: Lone Afib after abd surgery at [facility] not on AC at this time, BP can't tolerate metoprolol (8) Carcinoma of duodenum: Causing gastric outlet obstruction Stable, following with [facility] and Dr. Jordan. Anticipate chemotherapy in the future IF CAN STAY OUT OF THE HOSPITAL, will follow with heme-onc on discharge. Has had a port placed 10/10.-I removed the dressing from port placement on 11/02 which had been in place for over 3 weeks- fortunately wound appears normal with Steri-Strips with dried blood in place -remove Steri-Strips tomorrow continue Tube feeds as above (9) S/P jejunostomy: for gastric outlet obstruction With loss of 2 of the 3 T-fasteners from around his PEG tube as far as I can tell PEG in place now for almost 7 weeks and should be well fistulized at this point Reviewed op report scanned in to chart Will secure tubes down to skin Gen Surgery to stop by tomorrow as per my discussion on phone with Dr. Tucker to look at tube and make sure looks secure (10) SRIKANTH (obstructive sleep apnea): continue CPAP qhs (11) DVT prophylaxis: Lovenox Dispo-remain on medical floor, is ambulating the halls with walker 3 times daily and doing well Hopeful for dc to home on Tuesday IF SODIUM IS STABLE TO IMPROVED WOULD BE ON 1 gram NaCl tabs po TID and Tube feeds at 80mLs/hr and free water flushes 80mL/hr over 16 hours Plan to f/u at Cancer Center on Tuesday for repeat labs and see if needs IV fluids if discharged on Tuesday Admission and Anticipated Discharge Date Admission Date: October 31, 2019 Anticipated date of discharge: 11/04/19 Subjective Pt felt tired earlier but took a nap and now feels well. He is sleeping well at night. Reports he has been ambulating in the halls and feels strong. No headache, not lightheaded, denies CP or SOB, no abd pain. No diarrhea. He noticed a small piece of plastic fell out of his dressing of G-tube when changed yesterday and he saved it for me in a cup. It appears to be a T- fastener. Review of Systems Review of Systems: All systems reviewed & are unremarkable except as noted in HPI & below Physical Exam Constitutional: WD/WN, vitals as above Eyes: + anicteric sclerae Neck: trachea midline, no thyromegaly Respiratory: normal respiratory effort, lungs clear to auscultation Cardiovascular: RRR, no murmur, no edema Chest (Breasts): Chest: + vascular access device or port (steri strips in place with scant dried blood) Gastrointestinal (Abdomen): normal bowel sounds, soft, nontender, no hepatosplenomegaly Inspection/Auscultation: normal bowel sounds; + abdomen abnormal to inspection (G and J tubes in place,around G tube w/ small plastic button/suture) Percussion/Palpation: abdomen soft; abdomen nontender Musculoskeletal: Extremities: extremities normal to inspection; no cyanosis and no clubbing Skin: no rashes, warm and dry Neurologic: moves all extremities and awake; no focal motor deficits Psychiatric: A+Ox3, euthymic affect Lymphatic: no lymphedema Results & Data ([facility]) Vital Signs (Past 12 Hours) Vital Signs Temp Pulse Resp BP BP Pulse Ox 11/03/19 15:04 36.7 C 73 18 101/72 97 11/03/19 11:37 36.9 C 70 20 99/63 L 98 11/03/19 07:43 36.9 C 77 16 107/69 98 Laboratory Results 11/04/19 11/03/19 11/03/19 Range/Units 00:00 11:39 05:27 WBC (4.8-10.8) K/uL RBC (4.7-6.1) M/uL Hgb (14.0-18.0) g/dL Hct (42-52) % MCV (80-100) fL MCH (25-34) pg MCHC (32-36) g/dL RDW Std Deviation (36.4-46.3) fL RDW Coeff of Vineet (11.5-14.5) % Plt Count (130-400) K/uL MPV (7.4-10.4) fL Immature Gran % (Auto) % Neut % (Auto) % Lymph % (Auto) % [place] % (Auto) % Eos % (Auto) % Baso % (Auto) % Immature Gran # (Auto) (0.00-0.02) K/uL Neut # (Auto) (1.4-6.5) K/uL Lymph # (Auto) (1.2-3.4) K/uL [place] # (Auto) (0.11-0.59) K/uL Eos # (Auto) (0-0.5) K/uL Baso # (Auto) (0-0.2) K/uL Sodium (136-145) mmol/L Potassium (3.5-5.1) mmol/L Chloride (98-107) mmol/L Carbon Dioxide (21-32) mmol/L Anion Gap (3-11) BUN (7-18) mg/dl Creatinine (0.6-1.4) mg/dl Est Cr Clr Drug Dosing ml/min Est GFR ( Amer) Est GFR (Non-Af Amer) BUN/Creatinine Ratio (10-20) Glucose (70-99) mg/dl POC Glucose 102 H 100 H 133 H (70-99) mg/dl Calcium (8.5-10.1) mg/dl Phosphorus (2.5-4.9) mg/dl Magnesium (1.8-2.4) mg/dl Total Bilirubin (0.2-1) mg/dl AST (15-37) U/L ALT (12-78) U/L Alkaline Phosphatase (45-117) U/L Total Protein (6.4-8.2) gm/dl Albumin (3.4-5.0) gm/dl Globulin (2.5-4.0) gm/dl Albumin/Globulin Ratio (0.9-2) 11/03/19 11/03/19 Range/Units 05:21 05:21 WBC 8.64 (4.8-10.8) K/uL RBC 3.75 L (4.7-6.1) M/uL Hgb 11.5 L (14.0-18.0) g/dL Hct 34.2 L (42-52) % MCV 91.2 (80-100) fL MCH 30.7 (25-34) pg MCHC 33.6 (32-36) g/dL RDW Std Deviation 54.4 H (36.4-46.3) fL RDW Coeff of Vineet 16.2 H (11.5-14.5) % Plt Count 319 (130-400) K/uL MPV 10.2 (7.4-10.4) fL Immature Gran % (Auto) 0.5 % Neut % (Auto) 72.1 % Lymph % (Auto) 13.4 % [place] % (Auto) 12.4 % Eos % (Auto) 1.4 % Baso % (Auto) 0.2 % Immature Gran # (Auto) 0.04 H (0.00-0.02) K/uL Neut # (Auto) 6.23 (1.4-6.5) K/uL Lymph # (Auto) 1.16 L (1.2-3.4) K/uL [place] # (Auto) 1.07 H (0.11-0.59) K/uL Eos # (Auto) 0.12 (0-0.5) K/uL Baso # (Auto) 0.02 (0-0.2) K/uL Sodium 128 L (136-145) mmol/L Potassium 4.2 (3.5-5.1) mmol/L Chloride 100 (98-107) mmol/L Carbon Dioxide 20 L (21-32) mmol/L Anion Gap 8.0 (3-11) BUN 28 H (7-18) mg/dl Creatinine 0.74 (0.6-1.4) mg/dl Est Cr Clr Drug Dosing 77.0 ml/min Est GFR ( Amer) 98.2 Est GFR (Non-Af Amer) 84.7 BUN/Creatinine Ratio 38.6 H (10-20) Glucose 110 H (70-99) mg/dl POC Glucose (70-99) mg/dl Calcium 9.2 (8.5-10.1) mg/dl Phosphorus 2.6 (2.5-4.9) mg/dl Magnesium 2.2 (1.8-2.4) mg/dl Total Bilirubin 0.9 (0.2-1) mg/dl AST 17 (15-37) U/L ALT 32 (12-78) U/L Alkaline Phosphatase 207 H (45-117) U/L Total Protein 6.9 (6.4-8.2) gm/dl Albumin 2.5 L (3.4-5.0) gm/dl Globulin 4.4 H (2.5-4.0) gm/dl Albumin/Globulin Ratio 0.6 L (0.9-2) PG Care Time/CCT Total # of Minutes Spent Total Time Spent with Patient: Total time spent is greater than 50% in coordination of care (as documented) at patient's floor/unit and/or counseling patient: Coding Level of Care Code 80519 Subseq Hosp Care Lvl 2 Diagnoses Hyponatremia E87.1 Hypotension I95.9 Hypotension type: unspecified hypotension type Dehydration E86.0 Pericardial effusion I31.3 Hyperkalemia E87.5 Chronic systolic CHF (congestive heart failure) I50.22 Paroxysmal atrial fibrillation I48.0 Carcinoma of duodenum C17.0 S/P jejunostomy Z93.4 SRIKANTH (obstructive sleep apnea) G47.33 DVT prophylaxis Z29.9 (1) Hypotension Hypotension type: unspecified hypotension type Qualified Code(s): I95.9 - Hypotension, unspecified
[2019-11-03] MEDS: ENOXAPARIN INJ 40 MG/0.4 ML SYR SQ SCH (21:02)
[2019-11-04 05:57] LABS: Basophils # (auto) 0.02 K/uL (0-0.2); Basophils % (auto) 0.2 %; Eosinophils # (auto) 0.07 K/uL (0-0.5); Eosinophils % (auto) 0.7 %; Hematocrit (blood only) 32.7 % (42-52); Hemoglobin 10.9 g/dL (14.0-18.0); Immature Granulocytes # (auto) 0.03 K/uL (0.00-0.02); Immature Granulocytes % (auto) 0.3 %; Lymphocytes # (auto) 1.01 K/uL (1.2-3.4); Lymphocytes % (auto) 10.6 %; Mean Corpuscular Hemoglobin 30.7 pg (25-34); Mean Corpuscular Hgb Conc 33.3 g/dL (32-36); Mean Corpuscular Volume 92.1 fL (80-100); Mean Platelet Volume 10.2 fL (7.4-10.4); Monocytes % (auto) 11.6 %; Neutrophils # (auto) 7.29 K/uL (1.4-6.5); Neutrophils % (auto) 76.6 %; Platelet Count 322 K/uL (130-400); RDW Coefficient of Variation 15.8 % (11.5-14.5); RDW Standard Deviation 54.2 fL (36.4-46.3); Red Blood Count 3.55 M/uL (4.7-6.1); White Blood Count 9.52 K/uL (4.8-10.8)
[2019-11-04 06:32] LABS: Albumin Level 2.4 gm/dl (3.4-5.0); BUN Creatinine Ratio 30.8 (10-20); Bilirubin Direct 0.7 mg/dl (0-0.2); Calcium 8.7 mg/dl (8.5-10.1); Creatinine Clr Calc Pharmacy 72.9 ml/min; Est GFR (African American) 96.1; Est GFR (Non-African American) 82.9; Magnesium 2.2 mg/dl (1.8-2.4); Potassium 4.3 mmol/L (3.5-5.1)
[2019-11-04 06:35] LABS: Bilirubin,Total 1.2 mg/dl (0.2-1); Phosphorus 2.6 mg/dl (2.5-4.9); Total Protein 6.9 gm/dl (6.4-8.2)
[2019-11-04] MEDS: LANSOPRAZOLE 30 MG SOLTAB JT SCH (08:27)
[2019-11-04] MEDS: SODIUM CHLORIDE 1 GM TABLET PO SCH ×3 (08:28→21:06)
[2019-11-04] MEDS: SIMVASTATIN 10 MG TAB JT SCH (08:28)
[2019-11-04 15:14] LABS: Uric Acid 5.8 mg/dl (2.6-7.2)
[2019-11-04] MEDS: PEPTAMEN 1.5 CAL 1,000 ML BAG JT SCH (16:31)
[2019-11-04] MEDS: ENOXAPARIN INJ 40 MG/0.4 ML SYR SQ SCH (21:06)
[2019-11-04] MEDS ORDERED: SODIUM CHLORIDE 0.9% 500 ML IV SCH (22:00)
--- NOTE | 2019-11-04 23:15 | Hospitalist Progress Note ---
Date of Service November 04, 2019 Assessment & Plan (1) Hyponatremia: Repeat urine Na today <10 consistent with solute deficiency. Urine osm appropriately high in the setting of volume depletion and low solute intake. Question of reset osmostat too. SIADH not suspected. Clinically today on exam he looks dry. Pt with Na level of 125 on admission, improved to 129 after receiving 2 L NS IVFs. Na has been 128 the last several checks. He has been on salt tablets and this was recently increased to 1gm TID. I spoke with on-call nephrology - plan to hydrate overnight with NS at 50cc/hr for 500cc total. Repeat BMP, Urine Na, and Urine Osm in am. Dr Rubio had previously spoken with oncology. Plan was as follows - Oncology to consider once-twice weekly labs in the [facility] and depending on those labs he would be given IV fluids as necessary to maintain near-normal Na levels. (2) Hypotension: Likely 2nd to volume depletion. Previous cortisol level was wnl. Recent TSH also normal. (3) Dehydration: again appears mildly volume contracted today. NS 50cc/hr x 500cc then reassess in am clinically and with labs. (4) Pericardial effusion: small to moderate on most recent ECHO plan - repeat ECHO in 2 months no evidence of tamponade on physical exam (5) Chronic systolic CHF (congestive heart failure): Cardiomyopathy with reduced ejection fraction Beta-alva and GRACIELA were not previously tolerated due to hypotension Follow-up with cardiology as outpatient (6) Paroxysmal atrial fibrillation: Had such after abdominal surgery at [facility] [place] - by report. Not on anticoagulation at this time. not on beta alva due to low-normal BPs. (7) Carcinoma of duodenum: With resulting gastric outlet obstruction Follows with [facility] [place] and Dr. Jordan locally. s/p port placement 10/10. Steri-Strips are still in place over port site. Has G-tube for venting purposes and J-tube for tube feedings. (8) S/P jejunostomy: for gastric outlet obstruction With loss of 2 of the 3 T-fasteners from around his J-tube per Dr Rubio J-tube in place now for almost 7 weeks Gen Surgery was to stop by today to look at tube and make sure the tube looks secure tube feedings regimen -- Tube feeds at 80mLs/hr over 16 hours/day he also receives free water flushes (9) SRIKANTH (obstructive sleep apnea): continue CPAP qhs (10) DVT prophylaxis: Lovenox extensively updated at bedside today Admission and Anticipated Discharge Date Admission Date: October 31, 2019 Subjective when I walked into the pt's room both he and his were frustrated by the sodium issue. his stated "we have been dealing with this [the sodium issue] for over 6 weeks." their impression is that since the sodium level has been off this has delayed his chemotherapy for his cancer. patient asks "so what are you going to do about it?" they had numerous questions - I answered them to the best of my ability. patient offered no specific complaints - he was simply frustrated. Review of Systems Constitutional: + fatigue; no fever Respiratory: no dyspnea and no dyspnea on exertion Cardiovascular: no chest pain Gastrointestinal: no abdominal pain Physical Exam Constitutional: no acute distress and + not appropriately hydrated ENMT: Mouth: + dry oral mucous membranes Respiratory: normal respiratory effort, lungs clear to auscultation Cardiovascular: Rate/Rhythm: regular rate and regular rhythm Heart Sounds: normal S1 and normal S2; no murmur Vessels: posterior tibial pulses present and dorsalis pedis pulses present; no JVD Extremities: + edema Gastrointestinal (Abdomen): normal bowel sounds, soft, nontender, no hepatosplenomegaly G tube present; J tube present Skin: + turgor decreased Psychiatric: Orientation: alert and oriented x 3 Affect: + irritable affect Results & Data ([facility]) Vital Signs (Past 12 Hours) Vital Signs Temp Pulse Pulse Resp BP Pulse Ox 11/04/19 22:12 80 16 98 11/04/19 15:12 36.4 C L 72 20 95/65 L 99 Laboratory Results Laboratory Results - last 24 hr 11/04/19 11/04/19 11/04/19 00:00 05:13 05:13 WBC 9.52 RBC 3.55 L Hgb 10.9 L Hct 32.7 L MCV 92.1 MCH 30.7 MCHC 33.3 RDW Std Deviation 54.2 H RDW Coeff of Vineet 15.8 H Plt Count 322 MPV 10.2 Immature Gran % (Auto) 0.3 Neut % (Auto) 76.6 Lymph % (Auto) 10.6 [place] % (Auto) 11.6 Eos % (Auto) 0.7 Baso % (Auto) 0.2 Immature Gran # (Auto) 0.03 H Neut # (Auto) 7.29 H Lymph # (Auto) 1.01 L [place] # (Auto) 1.10 H Eos # (Auto) 0.07 Baso # (Auto) 0.02 Sodium 128 L Potassium 4.3 Chloride 99 Carbon Dioxide 24 Anion Gap 5.0 BUN 24 H Creatinine 0.78 Est Cr Clr Drug Dosing 72.9 Est GFR ( Amer) 96.1 Est GFR (Non-Af Amer) 82.9 BUN/Creatinine Ratio 30.8 H Glucose 105 H POC Glucose 102 H Osmolality Uric Acid Calcium 8.7 Phosphorus 2.6 Magnesium 2.2 Total Bilirubin 1.2 H Direct Bilirubin 0.7 H AST 18 ALT 33 Alkaline Phosphatase 201 H Total Protein 6.9 Albumin 2.4 L Urine Osmolality Ur Random Sodium 11/04/19 11/04/19 11/04/19 06:06 11:29 14:34 WBC RBC Hgb Hct MCV MCH MCHC RDW Std Deviation RDW Coeff of Vineet Plt Count MPV Immature Gran % (Auto) Neut % (Auto) Lymph % (Auto) [place] % (Auto) Eos % (Auto) Baso % (Auto) Immature Gran # (Auto) Neut # (Auto) Lymph # (Auto) [place] # (Auto) Eos # (Auto) Baso # (Auto) Sodium 128 L Potassium Chloride Carbon Dioxide Anion Gap BUN Creatinine Est Cr Clr Drug Dosing Est GFR ( Amer) Est GFR (Non-Af Amer) BUN/Creatinine Ratio Glucose POC Glucose 116 H 119 H Osmolality Uric Acid 5.8 Calcium Phosphorus Magnesium Total Bilirubin Direct Bilirubin AST ALT Alkaline Phosphatase Total Protein Albumin Urine Osmolality Ur Random Sodium 11/04/19 11/04/19 11/04/19 14:34 16:10 16:10 WBC RBC Hgb Hct MCV MCH MCHC RDW Std Deviation RDW Coeff of Vineet Plt Count MPV Immature Gran % (Auto) Neut % (Auto) Lymph % (Auto) [place] % (Auto) Eos % (Auto) Baso % (Auto) Immature Gran # (Auto) Neut # (Auto) Lymph # (Auto) [place] # (Auto) Eos # (Auto) Baso # (Auto) Sodium Potassium Chloride Carbon Dioxide Anion Gap BUN Creatinine Est Cr Clr Drug Dosing Est GFR ( Amer) Est GFR (Non-Af Amer) BUN/Creatinine Ratio Glucose POC Glucose Osmolality 276 L Uric Acid Calcium Phosphorus Magnesium Total Bilirubin Direct Bilirubin AST ALT Alkaline Phosphatase Total Protein Albumin Urine Osmolality 622 Ur Random Sodium 6 PG Care Time/CCT Total # of Minutes Spent Total Time Spent with Patient: Total time spent is greater than 50% in cooling tower operator rdination of care (as documented) at patient's floor/unit and/or counseling patient: Coding Level of Care Code 70101 Subseq Hosp Care Lvl 3 Diagnoses Hyponatremia E87.1 Hypotension I95.9 Hypotension type: unspecified hypotension type Dehydration E86.0 Pericardial effusion I31.3 Chronic systolic CHF (congestive heart failure) I50.22 Paroxysmal atrial fibrillation I48.0 Carcinoma of duodenum C17.0 S/P jejunostomy Z93.4 SRIKANTH (obstructive sleep apnea) G47.33 DVT prophylaxis Z29.9 (1) Hypotension Hypotension type: unspecified hypotension type Qualified Code(s): I95.9 - Hypotension, unspecified
[2019-11-05 07:22] LABS: BUN Creatinine Ratio 35.3 (10-20); Calcium 9.2 mg/dl (8.5-10.1); Creatinine Clr Calc Pharmacy 78.8 ml/min; Est GFR (African American) 98.7; Est GFR (Non-African American) 85.2; Potassium 4.5 mmol/L (3.5-5.1)
[2019-11-05] MEDS: SODIUM CHLORIDE 1 GM TABLET PO SCH ×3 (09:11→20:54)
[2019-11-05] MEDS: LANSOPRAZOLE 30 MG SOLTAB JT SCH (09:11)
[2019-11-05] MEDS: SIMVASTATIN 10 MG TAB JT SCH (09:12)
[2019-11-05] MEDS ORDERED: SODIUM CHLORIDE 0.9% 1000ML 1,000 ML IV SCH (09:15)
--- NOTE | 2019-11-05 09:17 | Nephrology Progress Note ---
Date of Service November 05, 2019 Assessment & Plan (1) Hyponatremia: Acute on chronic hyponatremia. Asymptomatic. Clinically consistent with dehydration and poor oral solute intake and not SIADH. Although he has been on oral salt tab, unclear whether he has been absorbing any as he also has G tube drainage. Slightly improved with IV fluid overnight. --start on NS at 75 ml/h --continue on salt tab 2 tab BID --maintain adequate hydration and solute intake --will sign off Please contact if any q. Subjective Alber was seen and evaluated this am. Denies any specific symptoms except bothered by abdominal distension, no respiratory distress. Has been getting tube feeding. Na slightly improved to 129. BP low but better. Review of Systems Review of Systems: All systems reviewed & are unremarkable except as noted in HPI & below Physical Exam Constitutional: + ill appearing and + malnourished; no acute distress Respiratory: normal respiratory effort, lungs clear to auscultation Cardiovascular: RRR, no murmur, no edema Skin: + turgor decreased Neurologic: awake; not confused Psychiatric: A+Ox3, euthymic affect Results & Data Vital Signs (Past 12 Hours) Vital Signs Temp Pulse Pulse Resp BP BP Pulse Ox 11/05/19 07:32 36.6 C 69 16 102/65 98 11/05/19 04:00 36.8 C 69 20 109/70 97 11/04/19 23:47 36.6 C 73 18 105/68 98 11/04/19 22:12 80 16 98 PG Care Time/CCT Total # of Minutes Spent Total Time Spent with Patient: Total time spent is greater than 50% in coordination of care (as documented) at patient's floor/unit and/or counseling patient: Coding Level of Care Code 38520 Subseq Hosp Care Lvl 3 Diagnoses Hyponatremia E87.1
--- NOTE | 2019-11-05 13:10 | Hospitalist Progress Note ---
Date of Service November 05, 2019 Assessment & Plan (1) Hyponatremia: - Urine sodium is persistently <10, consistent with solute deficiency. - Urine osmo appropriately high in setting of volume depletion; serum osmo was <280 but SIADH is very unlikely. - Na level improved from 128 to 129 following 500 cc bolus overnight; will continue to hydrate at 100 cc/hr (750 mL total) today. - Increased NaCl to 2 gm PO BID. - Nephrology following, appreciate input. - Will need twice weekly labs in the [facility] at discharge; can receive IV fluid boluses if indicated. - Continue tube feedings over 16 hour cycle with fluids at 80 cc/hr during tube feedings. (2) Dehydration: - As noted above; currently receiving IV fluids at 100 cc/hr. (3) Hypotension: - Likely 2nd to volume depletion. - Previous cortisol level was wnl. - Recent TSH also normal. - BP remains borderline low, will monitor. On IV fluids at 100 cc/hr. (4) Pericardial effusion: - Small to moderate on most recent ECHO - Recommend repeat echo in 2 months for re-evaluation. (5) Chronic systolic CHF (congestive heart failure): - Cardiomyopathy with reduced ejection fraction, most recently 30-35% on 10/04/19. - Beta-alva and GRACIELA were not previously tolerated due to hypotension - Monitor daily weights and I/Os. - F/u cardiology as outpatient; currently appears hypovolemic -- see above. (6) Paroxysmal atrial fibrillation: - Had such after abdominal surgery at [facility] - by report. - Not on anticoagulation at this time. - Not on beta alva due to low-normal BPs. - In NSR on most recent EKG in Oct 2019. 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 and Dr. Jordan locally. - S/p port placement 10/10. - Has G-tube for venting and J-tube for feedings. - Has not received chemotherapy due to hyponatremia/other acute issues. (8) S/P jejunostomy: - For gastric outlet obstruction - With loss of 2 of the 3 T-fasteners from around his J-tube per Dr Rubio - J-tube in place now for almost 7 weeks - Gen Surgery evaluated tube, no acute issues. - Continue tube feedings over 16 hour cycle with fluids at 80 ml/hr during feedings. Also receives free water flushes. (9) SRIKANTH (obstructive sleep apnea): - CPAP qhs. (10) DVT prophylaxis: - Lovenox daily. Dispo: Med/surg; discharge pending improvement in hyponatremia. Will need twice weekly labs as outpatient. Admission and Anticipated Discharge Date Admission Date: October 31, 2019 Anticipated date of discharge: 11/04/19 Subjective Pt. c/o abd bloating today. He is having zoltan colored BMs. G tube with dark brown output. Is urinating frequently, denies decreased urinary output. His is present at bedside; explained the concept of hyponatremia/dehydration but both the /patient were very frustrated. They do not feel he should be discharged yet. They also requested for the medical staff at [facility] to speak with a physician at [facility]. Review of Systems Review of Systems: All systems reviewed & are unremarkable except as noted in HPI & below Constitutional: + fatigue, + weakness and + anorexia; no fever and no chills Respiratory: no cough, no dyspnea and no dyspnea on exertion Cardiovascular: no chest pain, no palpitations and no edema Gastrointestinal: + abdominal pain, + bloating, + early satiety and + nausea; no vomiting, no constipation and no diarrhea/loose stools Genitourinary: no difficulty urinating, no urinary frequency and no decreased urination Musculoskeletal: no back pain and no joint pain Integumentary: no non-healing lesions Physical Exam Physical Exam: General: Resting comfortably HEENT: NC/AT; PERRLA with EOMI; [place] conjunctiva, MMM. No erythema of posterior pharynx Neck: Supple and nontender Cardiac: RRR Lungs: CTA bilaterally; No rhonchi, wheezing, or rales Abdomen: G tube with dark brown output; J tube site; Bowel normoactive X 4; Nontender to palpation Extremities: Warm. No edema present Neuro: No focal weakness Skin: No rash Results & Data ([facility]) Vital Signs (Past 12 Hours) Vital Signs Temp Pulse Resp BP BP Pulse Ox 11/05/19 11:45 36.7 C 70 18 103/67 99 11/05/19 07:32 36.6 C 69 16 102/65 98 11/05/19 04:00 36.8 C 69 20 109/70 97 Laboratory Results 11/05/19 11/05/19 11/05/19 Range/Units 11:59 09:45 09:45 Sodium (136-145) mmol/L Potassium (3.5-5.1) mmol/L Chloride (98-107) mmol/L Carbon Dioxide (21-32) mmol/L Anion Gap (3-11) BUN (7-18) mg/dl Creatinine (0.6-1.4) mg/dl Est Cr Clr Drug Dosing ml/min Est GFR ( Amer) Est GFR (Non-Af Amer) BUN/Creatinine Ratio (10-20) Glucose (70-99) mg/dl POC Glucose 103 H (70-99) mg/dl Osmolality (280-300) mOsm/kg Uric Acid (2.6-7.2) mg/dl Calcium (8.5-10.1) mg/dl Urine Osmolality 647 (500-800) mOsm/kg Ur Random Sodium 9 mmol/L 11/05/19 11/05/19 11/05/19 Range/Units 06:33 06:16 00:16 Sodium 129 L (136-145) mmol/L Potassium 4.5 (3.5-5.1) mmol/L Chloride 101 (98-107) mmol/L Carbon Dioxide 22 (21-32) mmol/L Anion Gap 7.0 (3-11) BUN 26 H (7-18) mg/dl Creatinine 0.73 (0.6-1.4) mg/dl Est Cr Clr Drug Dosing 78.8 ml/min Est GFR ( Amer) 98.7 Est GFR (Non-Af Amer) 85.2 BUN/Creatinine Ratio 35.3 H (10-20) Glucose 96 (70-99) mg/dl POC Glucose 130 H 194 H (70-99) mg/dl Osmolality (280-300) mOsm/kg Uric Acid (2.6-7.2) mg/dl Calcium 9.2 (8.5-10.1) mg/dl Urine Osmolality (500-800) mOsm/kg Ur Random Sodium mmol/L 11/04/19 11/04/19 11/04/19 Range/Units 16:10 16:10 14:34 Sodium (136-145) mmol/L Potassium (3.5-5.1) mmol/L Chloride (98-107) mmol/L Carbon Dioxide (21-32) mmol/L Anion Gap (3-11) BUN (7-18) mg/dl Creatinine (0.6-1.4) mg/dl Est Cr Clr Drug Dosing ml/min Est GFR ( Amer) Est GFR (Non-Af Amer) BUN/Creatinine Ratio (10-20) Glucose (70-99) mg/dl POC Glucose (70-99) mg/dl Osmolality 276 L (280-300) mOsm/kg Uric Acid (2.6-7.2) mg/dl Calcium (8.5-10.1) mg/dl Urine Osmolality 622 (500-800) mOsm/kg Ur Random Sodium 6 mmol/L 11/04/19 Range/Units 14:34 Sodium 128 L (136-145) mmol/L Potassium (3.5-5.1) mmol/L Chloride (98-107) mmol/L Carbon Dioxide (21-32) mmol/L Anion Gap (3-11) BUN (7-18) mg/dl Creatinine (0.6-1.4) mg/dl Est Cr Clr Drug Dosing ml/min Est GFR ( Amer) Est GFR (Non-Af Amer) BUN/Creatinine Ratio (10-20) Glucose (70-99) mg/dl POC Glucose (70-99) mg/dl Osmolality (280-300) mOsm/kg Uric Acid 5.8 (2.6-7.2) mg/dl Calcium (8.5-10.1) mg/dl Urine Osmolality (500-800) mOsm/kg Ur Random Sodium mmol/L PG Care Time/CCT Total # of Minutes Spent Total Time Spent with Patient: Total time spent is greater than 50% in coordination of care (as documented) at patient's floor/unit and/or counseling patient: Coding Level of Care Code 91738 Subseq Hosp Care Lvl 3 Diagnoses Hyponatremia E87.1 Dehydration E86.0 Hypotension I95.9 Hypotension type: unspecified hypotension type Pericardial effusion I31.3 Chronic systolic CHF (congestive heart failure) I50.22 Paroxysmal atrial fibrillation I48.0 Carcinoma of duodenum C17.0 S/P jejunostomy Z93.4 SRIKANTH (obstructive sleep apnea) G47.33 DVT prophylaxis Z29.9 (1) Hypotension Hypotension type: unspecified hypotension type Qualified Code(s): I95.9 - Hypotension, unspecified
[2019-11-05] MEDS: PEPTAMEN 1.5 CAL 1,000 ML BAG JT SCH (16:01)
[2019-11-05] MEDS: ENOXAPARIN INJ 40 MG/0.4 ML SYR SQ SCH (20:55)
[2019-11-06] MEDS: PEPTAMEN 1.5 CAL 1,000 ML BAG JT SCH (04:36)
[2019-11-06 07:36] LABS: Hematocrit (blood only) 30.6 % (42-52); Hemoglobin 10.2 g/dL (14.0-18.0); Mean Corpuscular Hemoglobin 30.4 pg (25-34); Mean Corpuscular Hgb Conc 33.3 g/dL (32-36); Mean Corpuscular Volume 91.3 fL (80-100); Mean Platelet Volume 9.5 fL (7.4-10.4); Platelet Count 300 K/uL (130-400); RDW Coefficient of Variation 16.1 % (11.5-14.5); RDW Standard Deviation 54.5 fL (36.4-46.3); Red Blood Count 3.35 M/uL (4.7-6.1); White Blood Count 8.17 K/uL (4.8-10.8)
[2019-11-06 08:09] LABS: BUN Creatinine Ratio 34.5 (10-20); Calcium 8.6 mg/dl (8.5-10.1); Creatinine Clr Calc Pharmacy 83.1 ml/min; Est GFR (Non-African American) 87.2; Potassium 4.1 mmol/L (3.5-5.1)
[2019-11-06] MEDS: LANSOPRAZOLE 30 MG SOLTAB JT SCH (08:10)
[2019-11-06] MEDS: SODIUM CHLORIDE 1 GM TABLET PO SCH (08:11)
[2019-11-06] MEDS: SIMVASTATIN 10 MG TAB JT SCH (08:11)
--- NOTE | 2019-11-06 14:31 | Discharge Summary ---
Date of Service November 06, 2019 Admission HPI Per Admitting Provider Pt presents with and niece in the room who also help provide the history. States he was diagnosed with duodenal carcinoma and had a PEG and J-tube placed in [place]. They followed up with oncology today who advised they come in to the ED based on his labs out of concern for his chronic hyponatremia and dehydration. Per , it has been a very frustrating process as he was recently discharged and would like "one set of instructions" to optimize his feed and fluid balance so he won't have to keep coming back. States she feels like they get different instructions from different doctors, the video network engineer and home nursing. Would like it optimized so he can start chemotherapy. Pt denies any changes currently, denies headache, chest pain, SOB, palpitations, N/V, diarrhea, dysuria, swelling in hands or feet. PMHx: Hx of duodenal carcinoma, SRIKANTH, HLD, resolved HTN-now hypotensive per and niece Allergies: NKDA SH: Lives at home with , home nursing comes in twice a week. Able to move around home with walker. Never smoker, no alcohol or recreational drug use. Principal Diagnosis Hyponatremia Discharge Exam Constitutional well developed, + ill appearing and + thin; no acute distress Eyes PERRL, conjunctivae normal, anicteric sclerae ENMT external ear and nose normal, oropharynx normal Neck trachea midline, no thyromegaly Respiratory normal respiratory effort, lungs clear to auscultation Cardiovascular RRR, no murmur, no edema Gastrointestinal (Abdomen) normal bowel sounds, soft, nontender, no hepatosplenomegaly Inspection/Auscultation: + abdominal surgical drain present (venting G tube, J tube for feedings) Musculoskeletal no cyanosis or clubbing, extremities motor strength 5/5 Skin no rashes, warm and dry Neurologic patellar DTR's 2+ bilat, sensation intact and PERRL, EOMI, accommodation nl, no face palsy, no dysarthria Psychiatric A+Ox3, euthymic affect Lymphatic no cervical or axillary lymphadenopathy Discharge Data Allergies Allergy/AdvReac Type Severity Reaction Status Date / Time No Known Allergies Allergy Verified 11/10/19 03:29 Consultations 10/31/19 18:35 ED Decision to Admit Stat 10/31/19 22:08 Consult Nutrition Routine 11/01/19 10:07 Consult Nephrology Routine Hospital Course (1) Hyponatremia: - Urine sodium is persistently <10, consistent with solute deficiency. - Urine osmo appropriately high in setting of volume depletion; no evidence of SIADH - Na level improved to 130 on the day of discharge plan for discharge will be to use NaCl 1gm crushed up and administered via J tube 4 times a day (every 2-3 hours) [facility] and for NSS infusion hope to keep Na between 125-130, want it stable so that he can start chemotherapy as originally planned - Continue tube feedings over 16 hour cycle with fluids at 80 cc/hr during tube feedings. (2) Dehydration: - due to constant output from his venting G tube and poor absorption continue J tube feedings over night plan for twice a week NSS infusions (3) Hypotension: - Likely 2nd to volume depletion. - Previous cortisol level was wnl. - Recent TSH also normal. resolved with IV fluids (4) Pericardial effusion: - Small to moderate on most recent ECHO - Recommend repeat echo in 2 months for re-evaluation. (5) Chronic systolic CHF (congestive heart failure): - Cardiomyopathy with reduced ejection fraction, most recently 30-35% on 10/04/19. - Beta-alva and GRACIELA were not previously tolerated due to hypotension - Monitor daily weights and I/Os. - F/u cardiology as outpatient; currently appears euvolemic to maybe slightly volume depleted, no signs of acute heart failure (6) Paroxysmal atrial fibrillation: - Had such after abdominal surgery at [facility] - by report. - Not on anticoagulation at this time. - Not on beta alva due to low-normal BPs. - In NSR on most recent EKG in Oct 2019. 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 Jordan locally. - S/p port placement 10/10. - Has G-tube for venting and J-tube for feedings. - Has not received chemotherapy due to hyponatremia/other acute issues hope to start treatment if the Na can remain stable and volume status remain stable patient and his are fully aware that chemotherapy will likely lead to further deterioration since he is so frail however, they want to at least try it because that was the original plan (8) S/P jejunostomy: - For gastric outlet obstruction - With loss of 2 of the 3 T-fasteners from around his J-tube per Dr Rubio - J-tube in place now for almost 7 weeks - Gen Surgery evaluated tube, no acute issues. - Continue tube feedings over 16 hour cycle with fluids at 80 ml/hr during feedings. Also receives free water flushes. (9) SRIKANTH (obstructive sleep apnea): - CPAP qhs. (10) DVT prophylaxis: - Lovenox daily. Total Time Total Time Spent Total Time Spent (In Minutes): 40 minutes Total Time Includes: Examination of the Patient, Discharge Planning, Medication Reconciliation and Other (several discussions with his ) Discharge Plan Discharge Items Patient Disposition: Home - Home Health Services Reason For Visit: HYPONATREMIS, DEHYDRATION Discharge Diagnosis: Hyponatremia, Dehydration Condition on Discharge: Fair Goals: You have been hospitalized for an acute medical problem. During your stay at [facility], we have made an effort to correct the problem that brought you to the hospital while keeping you as comfortable as possible. Medications were used to bring your condition under control and your discharge instructions will include directions for any medications you should take after leaving the hospital. Please make sure you see your Primary Care Provider as part of your follow up plan. Activity: As commented below Exercise/Sports: Gradually increase as tolerated Non-emergency contact: Primary Care Provider and Oncologist Call non-emergency contact if: you have any medication questions, your symptoms worsen and you have a fever Follow-up/Referrals: Annia Dyer MD [Primary Care Provider] - 11/12/19 9:00 am (You have an appt with your PCP on TuesdayNovember 11 at 0900. Please arrive for your appt 15 minutes prior to your appt time. If this appt does not fit your schedule please call [phone] to reschedule. ) Humberto Jordan [Physician] - (Please follow up with Dr. Jordan in 1-2 weeks. ) Diet: Clear liquid Addtl Attending Provider Instructions: 1. Hyponatremia (low sodium levels) * In setting of dehydration. * Follow up labs will need to be collected twice weekly (first lab draw on Tuesday11/05/19) * You will need twice weekly IV fluid infusions (first infusion on 11/06/19) * Continue tube feedings with 5 containers/cartons over 16 hours; please use 5 water boluses as well over course of tube feedings. * Please take sodium chloride 1 gm tablets -- total of 4 gm throughout the day VIA J TUBE. This medication can be purchased over the counter. Please take one tablet every 6 hours at home with total dose of 4 tablets in 24 hours. 2. Pericardial effusion * You will need a follow up echocardiogram (ultrasound of the heart) in 2 months for re-evaluation. 3. Duodenal carcinoma * Please follow up with Dr. Jordan to discuss starting chemotherapy. 4. Please follow up with the following providers: * Primary care provider to discuss this hospitalization. * Oncologist to discuss chemotherapy. * Consider follow up with nephrology in setting of hyponatremia. Pending Studies at Discharge: No Stand-Alone Forms: My [facility] Medications and DC Order Prescriptions: New sodium chloride 1 gram tablet 1,000 mg PO QID Qty: 120 RF: 0 Continued (DME) CPAP Machine Misc See Dose Instructions .ROUTE .MEDSUPPLY Qty: 1 RF: 0 (DME) Wheeled Walker Misc See Rx Instructions .ROUTE .MEDSUPPLY Qty: 1 RF: 0 simvastatin 10 mg tablet 10 mg feeding tube DAILY RF: 0 acetaminophen 500 mg/15 mL Liquid 1,000 mg feeding tube Q8H PRN (Reason: Mild Pain (Scale Score 1-4)) RF: 0 lansoprazole [Prevacid SoluTab] 30 mg tablet,disintegrat, delay rel 30 mg feeding tube DAILY RF: 0 Peptamen 1.5 0.068 gram- 1.5 kcal/mL Liquid See Rx Instructions .ROUTE .COMPLEX Qty: 6000 RF: 0 sennosides [senna] 8.8 mg/5 mL Syrup 8.8 mg feeding tube BID PRN (Reason: Constipation) Qty: 0 RF: 0 Discharge Orders: Discharge Order (Routine); Ordered 11/06/19 Ordered By: Carmen Vásquez Admission Data Admit Date/Time: 10/31/19 19:51 Attending Provider: Adolph West Admit Provider: Sandra Hodges Primary Care Provider: Annia Dyer Other Providers: Andrew Pérez Other Interventions: Discharge Summary Assessment (RN) Last Done: 11/06/19 11:23 DC Date/Time DO NOT enter until pt leaves facility: 11/06/19 12:30 Coding Level of Care Code D/C Day Management >30 mins Diagnoses Hyponatremia E87.1 Dehydration E86.0 Hypotension I95.9 Hypotension type: unspecified hypotension type Pericardial effusion I31.3 Chronic systolic CHF (congestive heart failure) I50.22 Paroxysmal atrial fibrillation I48.0 Carcinoma of duodenum C17.0 S/P jejunostomy Z93.4 SRIKANTH (obstructive sleep apnea) G47.33 DVT prophylaxis Z29.9
== END 2019-11-06 12:30 | disposition home health service (06) | DRG 641 ==
LOC: ED 16:14 → SUATTDRO 19:51 → 4W 19:51

== ENCOUNTER 2019-11-20 14:05 | Inpatient (IN) ==
[2019-11-20] MEDS ORDERED: VANCOMYCIN HCL 1,500 MG in SODIUM CHLORIDE 0.9% 500 ML IV ONE (14:26)
[2019-11-20] MEDS ORDERED: VANCOMYCIN CONSULT ACTIVE PRN (14:26)
[2019-11-20] MEDS ORDERED: PIPERACILL/TAZOBAC CONSULT ACTIVE PRN (14:26)
[2019-11-20] MEDS ORDERED: SODIUM CHLORIDE 0.9% 1000ML 2,000 ML IV ONE (14:26)
[2019-11-20] MEDS ORDERED: PIPERACILLIN/TAZOBACTAM 4.5 GM/120 ML BAG IV ONE (14:26)
[2019-11-20 15:07] LABS: Basophils # (auto) 0.02 K/uL (0-0.2); Basophils % (auto) 0.6 %; Eosinophils # (auto) 0.02 K/uL (0-0.5); Eosinophils % (auto) 0.6 %; Hematocrit (blood only) 30.3 % (42-52); Hemoglobin 10.5 g/dL (14.0-18.0); Immature Granulocytes # (auto) 0.05 K/uL (0.00-0.02); Immature Granulocytes % (auto) 1.6 %; Lymphocytes # (auto) 0.76 K/uL (1.2-3.4); Lymphocytes % (auto) 24.1 %; Mean Corpuscular Hgb Conc 34.7 g/dL (32-36); Mean Corpuscular Volume 86.6 fL (80-100); Mean Platelet Volume 11.4 fL (7.4-10.4); Monocytes % (auto) 28.5 %; Neutrophils # (auto) 1.41 K/uL (1.4-6.5); Neutrophils % (auto) 44.6 %; Nucleated RBC # (auto) 0.06 K/uL (0-0); Platelet Count 287 K/uL (130-400); RDW Coefficient of Variation 16.4 % (11.5-14.5); RDW Standard Deviation 51.2 fL (36.4-46.3); White Blood Count 3.16 K/uL (4.8-10.8)
[2019-11-20 15:09] LABS: Base Excess VBG -10.2 mEq/L; HCO3 VBG 15 mmol/L; PCO2 VBG 29 mmHg (38-50); PO2 VBG 25 mmHg; pH VBG 7.32 (7.36-7.41)
[2019-11-20 15:11] LABS: Oxygen Saturation VBG < 60.0 %
--- NOTE | 2019-11-20 15:15 | XRay Report ---
XR chest 1V portable CLINICAL HISTORY: SEPSIS dyspnea COMPARISON STUDY: No previous studies for comparison. FINDINGS: The bones soft tissues and hemidiaphragms are normal. The cardiomediastinal silhouette is n ormal. The lungs are clear. The pulmonary vasculature is normal. Possible right subdiaphragmatic free air. IMPRESSION: Possible right subdiaphragmatic free air. Follow-up is recommended to exclude any possib ility of a perforated viscus. ACT 112: Negative or not required by law. The above report was generated using voice recognition software. It may contain grammatical, syntax or spelling errors. Electronically signed by: Alber Smart M.D. 11/20/2019 3:14 PM
[2019-11-20 15:16] LABS: INR 2.6 (0.9-1.1); Partial Thromboplastin Ratio 1.1; Partial Thromboplastin Time 31.9 Seconds (21.0-31.0); Prothrombin Time 26.4 Seconds (9.0-12.0)
[2019-11-20 15:29] LABS: Albumin Level 1.8 gm/dl (3.4-5.0); BUN Creatinine Ratio 33.4 (10-20); Bilirubin Direct 4.7 mg/dl (0-0.2); Calcium 8.3 mg/dl (8.5-10.1); Creatinine Clr Calc Pharmacy 38.9 ml/min; Est GFR (African American) 48.8; Est GFR (Non-African American) 42.1; Magnesium 2.5 mg/dl (1.8-2.4); Potassium 2.6 mmol/L (3.5-5.1)
--- NOTE | 2019-11-20 15:30 | Emergency Department Note ---
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 On arrival the patient is ill/toxix-appearing, fatigued with blood pressures 60s/50s. However, he is mentating normally. EKG demonstrates left bundle branch block which is similar to prior with A. fib in setting of h/o PAF. No Sgarbossa criteria. Chest x-ray with no acute cardiopulmonary findings however with "possible right subdiaphragmatic free air". WBC 3.1 and H/H 10.5/30.3 similar to prior values. Platelets within normal limits. Similar to prior range of values. INR 2.6 but not coumadin, likely Vit K deficiency vs sepsis/liver failure, VBG with pH of 7.32 and PCO2 of 29 just above component of respiratory compensation. Potassium 2.6 with repletion initiated. Chemistry demonstrates metabolic acidosis with bicarb of 14 and anion gap of 13. Lactate is initially 4.5. Creatinine is 1.5 which is consistent with acute renal insufficiency with BUN/creatinine 30 consistent with prerenal etiology. LFTs are elevated from prior with total bilirubin 5.5 and direct bilirubin 4.7 up from 2.1 and 0.7 on 11/14 and alk phos 600s up from 200s on 11/14. Troponin 0.044, within normal limits. Procalcitonin 1.05. UA with epithelial cells but with WBCs and 4+ bacteria. CT abdomen pelvis demonstrates enlargement of previously identified duodenal mass moderate intrahepatic biliary ductal dilatation, as well as dilatation of the pancreatic duct leave to be secondary to mass. Moderate volume of intraperitoneal free air without clear etiology but viscus is considered the diagnosis of exclusion. 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 Dr. Jordan, the patient's oncologist, did arrive at the bedside and an extensive discussion was had with the patient and family members at the bedside guarding the severity of the patient's CT findings and options for transfer to tertiary care facility for potential though not definitive intervention versus admission here for stabilization and transition to palliative/hospice care. Ultimately, the patient and family were agreeable to at least inquire with [facility] regarding the possibility of any potential intervention. I did discuss the case with Dr. Mejias, surgery oncology, who is familiar with the patient and explained that given the patient's comorbidities it was determined that his placement of his event tube and feeding tube in September were believed to be the extent of what they would be able to provide as palliative measures. Given this it is unlikely that the patient would be a further surgical candidate and while biliary decompression could be considered but it would be impossible for him to say definitively either way without evaluating the patient at the bedside. However it is certainly believed that the patient's disease is terminal and any intervention if possible (given acute critical illness) would only be temporizing. Thus, I did discuss with the patient and his family regarding the low likelihood of any intervention that will provide any meaningful recovery and quality of life. Thus, they were agreeable to stay at [facility] for further treatment including palliative care/hospice consultation. They did request that I attempt to discuss the case and possibilities of any intervention with Dr. Redd, [facility], who knows the patient and had initially referred him to [facility]. Dr. Redd also agreed that the patient's disease is terminal with a poor prognosis and that a biliary decompression would require percutaneous decompression and further would be temporizing only and not necessarily contribute any meaningful quality recovery. I did review the overall impression of the patient's poor prognosis and low likelihood of any intervention that could be performed without additional risks which would include prolonged hospitalization and complications, setting of unlikely to have any definitive prolonged therapeutic effect., The patient's and daughter ultimately were agreeable with the plan to stay at [facility] to proceed with palliative care and hospice consultation. Initial IV fluid resuscitation and empiric broad-spectrum antibiotics with Zosyn and vancomycin, clinically, the patient did stabilize to a degree with blood pressure 90s-100s and repeat lactate improved to 2.1. Case was discussed with Dr. Donaldson, [facility] hospitalist and also Dr. Salvador, [facility] hospitalist who will evaluate the patient for admission. Triage Nursing notes reviewed and agree them. [Additional history obtained from] [] [Prior medical records reviewed] [] Vital Signs: reviewed and remarkable for hypotension Differential diagnosis: Sepsis, UTI, pneumonia, metabolic, electrolyte abnormalities, cardiac sources, intracerebral event, toxicologic, neurologic, as well as other pathologies. ER treatment provided: See below Diagnostics interpreted by me: ECG: EKG demonstrates atrial fibrillation with PVCs, 74 bpm, left bundle branch block, no Sgarbossa criteria, compared to 10/18/2019 left bundle branch block is unchanged and A. fib with h/o PAF. Cardiac Monitoring: Atrial fibrillation, 74 bpm, PVCs noted. Laboratory studies: [See below] [] Imaging studies: [See below] [] Consultation(s): Dr. Collins, [place] oncology. Dr. Mejias, [facility] surgery oncology. Dr. Redd, [facility] Dr. Donaldson and Dr. Salvador, [facility] hospitalists. 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 The patient is status post G- tube for venting and J-tube for feeds on 09/17 at [facility]. Patient's jaundiced and hypotension appears to have occurred appropriately over the past 24 to 36 hours. They deny fevers cough congestion or shortness of breath. Denies any nausea or vomiting. They report the patient's stools have remained loose as a have been in the setting of his current condition. Reports his abdominal discomfort is unchanged as it usually is. They report the patient's G-tube and J-tube have been functioning appropriately. No interventions were performed prior to arrival. ROS: See above HPI for pertinent positives & negatives. A total of [10] systems reviewed and were otherwise negative. PAST MEDICAL HISTORY:[See Below] PAST SURGICAL HISTORY:[See Below] FAMILY HISTORY:[See Below] SOCIAL HISTORY:[See Below] HOME MEDICATIONS:[See Below] ALLERGIES:[See Below] VITALS:[See Below] PHYSICAL EXAMINATION: GENERAL: Awake, alert, ill/toxic-appearing, in no distress HENT: Normocephalic, atraumatic. Oropharynx with dry mucous membranes and otherwise unremarkable. EYES: Normal conjunctiva. Sclera icteric NECK: Supple. No nuchal rigidity. FROM. No JVD. RESPIRATORY: Clear to auscultation. CARDIAC: Regular rate, irregular rhythm. Extremities warm and well perfused. Pulses equal. ABDOMEN: Mild distension but soft. Generalized abdominal discomfort without discrete tenderness to palpation. No rebound or guarding. Venting G-tube and J- tube sites are clean dry and intact. RECTAL: Deferred. MUSCULOSKELETAL: Chest examination reveals no tenderness. The back is symmetrical on inspection without obvious abnormality. There is no CVA ten derness to palpation. No joint edema. LOWER EXTREMITIES: Calves are equal size bilaterally and non-tender. 1+ BLE edema. No discoloration. NEURO: Normal sensorium. No sensory or motor deficits noted. SKIN: Jaundice. No rash. ED COURSE: [Critical Care:] I have personally spent greater than 125 minutes of critical care time in the direct management of this patient. This includes bedside care, interpretation of diagnostic studies, and testing, discussion with consultants, patient, and family members, and other required patient management activities. This 125 minutes is in excess of all separately billable procedures. Delfin Hamilton MD Impression & Plan Sepsis, Duodenal adenocarcinoma, Paroxysmal atrial fibrillation, Hypotension, Acute hypokalemia, H/O left bundle branch block, Acute renal insufficiency, Biliary obstruction, Elevated INR Past Med/Surg History Medical History Basal cell carcinoma Carcinoma of duodenum Cardiomyopathy Carpal tunnel syndrome Chronic systolic CHF (congestive heart failure) Diverticulosis Goals of care, counseling/discussion HTN (hypertension) (Chronic) SRIKANTH (obstructive sleep apnea) (Chronic) Paroxysmal atrial fibrillation Pericardial effusion Surgical History H/O carpal tunnel repair S/P jejunostomy 09/17/19 Dr. Guardado at [facility]- Diagnostic laparoscopy, Laparoscopic 16F jejunostomy tube placement, 20F PEG with T-fasteners, Bilateral TAP blocks with Exparel S/P tonsillectomy Family History Father Cancer Denies family history of Crohn's disease Colorectal cancer Ulcerative colitis Social History Preferred Language: Slovak Communication Ability: Effective Visual Impairment: No Limitations Functional Analyst Required: No Beliefs That Will Affect Care: Rastafarian Rastafarian Beliefs: adventism marital status: Current Living Situation: Spouse current occupational status: retired Feels Safe at Home: Yes Smoking Status: Former smoker Second Hand Exposure: No ; Hx Alcohol Use: No Hx Substance Use: No Seatbelt Use: always Results & Data Vital Signs Vital Signs - 24 hr 11/20/19 14:08 11/20/19 14:18 11/20/19 14:21 Temperature Temperature Source Pulse Rate 93 H 82 74 Pulse Rate from SpO2 Sensor Pulse Rhythm Regular Pulse Strength Normal Respiratory Rate 20 21 16 Respiratory Effort / Characteristics Non-Labored Spontaneous Respiratory Depth Normal Respiratory Pattern Regular Blood Pressure 67/48 L 73/45 L Blood Pressure Mean 54 58 Blood Pressure Position Sitting Pulse Oximetry 98 Oxygen Delivery Method Room Air Oxygen Flow Rate Sepsis Recent Fever Within 48 Hours No Sepsis New/Unexplained Change in Mental Status No Sepsis Action Taken by Nursing No Action Required 11/20/19 14:30 11/20/19 14:38 11/20/19 14:45 Temperature Temperature Source Pulse Rate 87 79 73 Pulse Rate from SpO2 Sensor 70 Pulse Rhythm Pulse Strength Respiratory Rate 21 20 22 Respiratory Effort / Characteristics Respiratory Depth Respiratory Pattern Blood Pressure 80/50 L 75/44 L 78/50 L Blood Pressure Mean 63 62 55 Blood Pressure Position Pulse Oximetry 100 Oxygen Delivery Method Oxygen Flow Rate Sepsis Recent Fever Within 48 Hours Sepsis New/Unexplained Change in Mental Status Sepsis Action Taken by Nursing 11/20/19 14:47 11/20/19 14:49 11/20/19 14:56 Temperature Temperature Source Pulse Rate 71 75 Pulse Rate from SpO2 Sensor 66 71 Pulse Rhythm Pulse Strength Respiratory Rate 19 19 Respiratory Effort / Characteristics Respiratory Depth Respiratory Pattern Blood Pressure 81/51 L 86/54 L Blood Pressure Mean 56 58 Blood Pressure Position Pulse Oximetry 100 100 97 Oxygen Delivery Method Room Air Oxygen Flow Rate Sepsis Recent Fever Within 48 Hours Sepsis New/Unexplained Change in Mental Status Sepsis Action Taken by Nursing 11/20/19 15:00 11/20/19 15:04 11/20/19 15:08 Temperature 36.4 C L Temperature Source Rectal Pulse Rate 75 79 Pulse Rate from SpO2 Sensor 66 74 Pulse Rhythm Pulse Strength Respiratory Rate 18 18 Respiratory Effort / Characteristics Respiratory Depth Respiratory Pattern Blood Pressure 74/43 L 81/53 L Blood Pressure Mean 57 68 Blood Pressure Position Pulse Oximetry 100 94 Oxygen Delivery Method Oxygen Flow Rate Sepsis Recent Fever Within 48 Hours Sepsis New/Unexplained Change in Mental Status Sepsis Action Taken by Nursing 11/20/19 15:10 11/20/19 15:30 11/20/19 15:45 Temperature Temperature Source Pulse Rate 64 69 Pulse Rate from SpO2 Sensor Pulse Rhythm Pulse Strength Respiratory Rate 18 20 Respiratory Effort / Characteristics Respiratory Depth Respiratory Pattern Blood Pressure 80/47 L 88/58 L Blood Pressure Mean 59 63 Blood Pressure Position Pulse Oximetry 100 100 Oxygen Delivery Method Room Air Oxygen Flow Rate 0 Sepsis Recent Fever Within 48 Hours Sepsis New/Unexplained Change in Mental Status Sepsis Action Taken by Nursing 11/20/19 16:00 11/20/19 16:15 11/20/19 16:30 Temperature Temperature Source Pulse Rate 63 72 66 Pulse Rate from SpO2 Sensor 63 66 72 Pulse Rhythm Pulse Strength Respiratory Rate 18 18 15 Respiratory Effort / Characteristics Respiratory Depth Respiratory Pattern Blood Pressure 96/57 L 96/61 L 101/52 L Blood Pressure Mean 69 66 61 Blood Pressure Position Pulse Oximetry 100 97 100 Oxygen Delivery Method Oxygen Flow Rate Sepsis Recent Fever Within 48 Hours Sepsis New/Unexplained Change in Mental Status Sepsis Action Taken by Nursing 11/20/19 16:45 11/20/19 17:00 11/20/19 17:15 Temperature Temperature Source Pulse Rate 74 88 87 Pulse Rate from SpO2 Sensor 83 81 90 Pulse Rhythm Pulse Strength Respiratory Rate 17 17 17 Respiratory Effort / Characteristics Respiratory Depth Respiratory Pattern Blood Pressure 101/60 102/64 107/63 Blood Pressure Mean 69 73 75 Blood Pressure Position Pulse Oximetry 100 100 100 Oxygen Delivery Method Oxygen Flow Rate Sepsis Recent Fever Within 48 Hours Sepsis New/Unexplained Change in Mental Status Sepsis Action Taken by Nursing 11/20/19 17:30 11/20/19 17:45 11/20/19 18:00 Temperature Temperature Source Pulse Rate 81 87 88 Pulse Rate from SpO2 Sensor 85 85 86 Pulse Rhythm Pulse Strength Respiratory Rate 18 18 17 Respiratory Effort / Characteristics Respiratory Depth Respiratory Pattern Blood Pressure 96/64 L 92/62 L 97/64 L Blood Pressure Mean 70 64 69 Blood Pressure Position Pulse Oximetry 99 100 100 Oxygen Delivery Method Oxygen Flow Rate Sepsis Recent Fever Within 48 Hours Sepsis New/Unexplained Change in Mental Status Sepsis Action Taken by Nursing 11/20/19 18:15 11/20/19 18:37 11/20/19 18:45 Temperature Temperature Source Pulse Rate 89 90 89 Pulse Rate from SpO2 Sensor 89 89 Pulse Rhythm Pulse Strength Respiratory Rate 17 19 19 Respiratory Effort / Characteristics Respiratory Depth Respiratory Pattern Blood Pressure 106/64 93/59 L 92/57 L Blood Pressure Mean 73 70 62 Blood Pressure Position Pulse Oximetry 100 100 Oxygen Delivery Method Oxygen Flow Rate Sepsis Recent Fever Within 48 Hours Sepsis New/Unexplained Change in Mental Status Sepsis Action Taken by Nursing 11/20/19 19:04 11/20/19 19:15 11/20/19 19:39 Temperature Temperature Source Pulse Rate 82 88 91 H Pulse Rate from SpO2 Sensor 87 88 88 Pulse Rhythm Pulse Strength Respiratory Rate 19 17 16 Respiratory Effort / Characteristics Respiratory Depth Respiratory Pattern Blood Pressure 91/60 L 98/60 L 97/65 L Blood Pressure Mean 65 67 83 Blood Pressure Position Pulse Oximetry 100 100 98 Oxygen Delivery Method Oxygen Flow Rate Sepsis Recent Fever Within 48 Hours Sepsis New/Unexplained Change in Mental Status Sepsis Action Taken by Nursing 11/20/19 19:57 11/20/19 20:15 11/20/19 20:30 Temperature Temperature Source Pulse Rate 87 87 75 Pulse Rate from SpO2 Sensor 87 85 81 Pulse Rhythm Pulse Strength Respiratory Rate 18 19 19 Respiratory Effort / Characteristics Respiratory Depth Respiratory Pattern Blood Pressure 89/54 L 90/56 L 92/52 L Blood Pressure Mean 58 60 62 Blood Pressure Position Pulse Oximetry 100 100 100 Oxygen Delivery Method Oxygen Flow Rate Sepsis Recent Fever Within 48 Hours Sepsis New/Unexplained Change in Mental Status Sepsis Action Taken by Nursing 11/20/19 20:45 11/20/19 21:08 11/20/19 21:30 Temperature 36.4 C L Temperature Source Pulse Rate 86 62 74 Pulse Rate from SpO2 Sensor 85 72 71 Pulse Rhythm Pulse Strength Respiratory Rate 19 20 20 Respiratory Effort / Characteristics Respiratory Depth Respiratory Pattern Blood Pressure 91/53 L 83/44 L 84/46 L Blood Pressure Mean 63 60 51 Blood Pressure Position Pulse Oximetry 100 95 100 Oxygen Delivery Method Oxygen Flow Rate Sepsis Recent Fever Within 48 Hours Sepsis New/Unexplained Change in Mental Status Sepsis Action Taken by Nursing 11/20/19 21:45 11/20/19 22:00 11/20/19 22:30 Temperature Temperature Source Pulse Rate 79 78 58 L Pulse Rate from SpO2 Sensor 78 79 54 L Pulse Rhythm Pulse Strength Respiratory Rate 24 18 22 Respiratory Effort / Characteristics Respiratory Depth Respiratory Pattern Blood Pressure 85/52 L 83/50 L 81/49 L Blood Pressure Mean 70 55 52 Blood Pressure Position Pulse Oximetry 100 100 100 Oxygen Delivery Method Oxygen Flow Rate Sepsis Recent Fever Within 48 Hours Sepsis New/Unexplained Change in Mental Status Sepsis Action Taken by Assisted Medications Current Medication List: was personally reviewed by me Laboratory Data Attestation: I reviewed the patient's lab results. Result diagrams: 11/20/19 14:30 11/20/19 14:30 Lab Results 11/20/19 11/20/19 11/20/19 Range/Units 14:30 14:30 14:30 WBC 3.16 L (4.8-10.8) K/uL RBC 3.50 L (4.7-6.1) M/uL Hgb 10.5 L (14.0-18.0) g/dL Hct 30.3 L (42-52) % MCV 86.6 (80-100) fL MCH 30.0 (25-34) pg MCHC 34.7 (32-36) g/dL RDW Std Deviation 51.2 H (36.4-46.3) fL RDW Coeff of Vineet 16.4 H (11.5-14.5) % Plt Count 287 (130-400) K/uL MPV 11.4 H (7.4-10.4) fL Immature Gran % (Auto) 1.6 % Neut % (Auto) 44.6 % Lymph % (Auto) 24.1 % [place] % (Auto) 28.5 % Eos % (Auto) 0.6 % Baso % (Auto) 0.6 % Immature Gran # (Auto) 0.05 H (0.00-0.02) K/uL Neut # (Auto) 1.41 (1.4-6.5) K/uL Lymph # (Auto) 0.76 L (1.2-3.4) K/uL [place] # (Auto) 0.90 H (0.11-0.59) K/uL Eos # (Auto) 0.02 (0-0.5) K/uL Baso # (Auto) 0.02 (0-0.2) K/uL Absolute Nucleated RBC 0.06 H (0-0) K/uL Nucleated RBC % (auto) 2.0 % Toxic Granulation 2+ Dohle Bodies 1+ Giant Platelets 1+ Polychromasia 1+ Ovalocytes 1+ Echinocytes 2+ PT 26.4 H (9.0-12.0) Seconds INR 2.6 H (0.9-1.1) APTT 31.9 H (21.0-31.0) Seconds PTT Ratio 1.1 VBG pH (7.36-7.41) VBG pCO2 (38-50) mmHg VBG pO2 mmHg VBG HCO3 mmol/L VBG O2 Saturation % VBG Base Excess mEq/L Barometric Pressure mm/Hg Sodium 133 L (136-145) mmol/L Potassium 2.6 L (3.5-5.1) mmol/L Chloride 106 (98-107) mmol/L Carbon Dioxide 14 L (21-32) mmol/L Anion Gap 13.0 H (3-11) BUN 50 H (7-18) mg/dl Creatinine 1.50 H (0.6-1.4) mg/dl Est Cr Clr Drug Dosing 38.9 ml/min Est GFR ( Amer) 48.8 Est GFR (Non-Af Amer) 42.1 BUN/Creatinine Ratio 33.4 H (10-20) Glucose 123 H (70-99) mg/dl Lactate (0.4-2.0) mmol/L Calcium 8.3 L (8.5-10.1) mg/dl Phosphorus 3.2 (2.5-4.9) mg/dl Magnesium 2.5 H (1.8-2.4) mg/dl Total Bilirubin 5.5 H (0.2-1) mg/dl Direct Bilirubin 4.7 H (0-0.2) mg/dl AST 57 H (15-37) U/L ALT 77 (12-78) U/L Alkaline Phosphatase 609 H (45-117) U/L Troponin I 0.044 (0-0.045) ng/ml Total Protein 5.9 L (6.4-8.2) gm/dl Albumin 1.8 L (3.4-5.0) gm/dl Globulin 4.1 H (2.5-4.0) gm/dl Albumin/Globulin Ratio 0.4 L (0.9-2) Procalcitonin (0-0.5) ng/ml Urine Color Urine Appearance (Clear) Urine pH (4.5-7.5) Ur Specific [place] (1.000-1.030) Urine Protein (Negative) Urine Glucose (UA) (Negative) Urine Ketones (Negative) Urine Blood (Negative) Urine Nitrite (Negative) Urine Bilirubin (Negative) Urine Urobilinogen (Negative) Ur Leukocyte Esterase (Negative) Urine WBC (Auto) (0-5) /hpf Urine RBC (Auto) (0-4) /hpf U Hyaline Cast (Auto) (0-5) /lpf U Epithel Cells (Auto) (0-5) /lpf Urine Bacteria (Auto) (Negative) WBC Casts (0) /lpf Urine Yeast (None Prsent) Influenza Type A (PCR) (Neg) Influenza Type B (PCR) (Neg) 11/20/19 11/20/19 11/20/19 Range/Units 14:30 14:30 14:48 WBC (4.8-10.8) K/uL RBC (4.7-6.1) M/uL Hgb (14.0-18.0) g/dL Hct (42-52) % MCV (80-100) fL MCH (25-34) pg MCHC (32-36) g/dL RDW Std Deviation (36.4-46.3) fL RDW Coeff of Vineet (11.5-14.5) % Plt Count (130-400) K/uL MPV (7.4-10.4) fL Immature Gran % (Auto) % Neut % (Auto) % Lymph % (Auto) % [place] % (Auto) % Eos % (Auto) % Baso % (Auto) % Immature Gran # (Auto) (0.00-0.02) K/uL Neut # (Auto) (1.4-6.5) K/uL Lymph # (Auto) (1.2-3.4) K/uL [place] # (Auto) (0.11-0.59) K/uL Eos # (Auto) (0-0.5) K/uL Baso # (Auto) (0-0.2) K/uL Absolute Nucleated RBC (0-0) K/uL Nucleated RBC % (auto) % Toxic Granulation Dohle Bodies Giant Platelets Polychromasia Ovalocytes Echinocytes PT (9.0-12.0) Seconds INR (0.9-1.1) APTT (21.0-31.0) Seconds PTT Ratio VBG pH 7.32 L (7.36-7.41) VBG pCO2 29 L (38-50) mmHg VBG pO2 25 mmHg VBG HCO3 15 mmol/L VBG O2 Saturation < 60.0 % VBG Base Excess -10.2 mEq/L Barometric Pressure 734.3 mm/Hg Sodium (136-145) mmol/L Potassium (3.5-5.1) mmol/L Chloride (98-107) mmol/L Carbon Dioxide (21-32) mmol/L Anion Gap (3-11) BUN (7-18) mg/dl Creatinine (0.6-1.4) mg/dl Est Cr Clr Drug Dosing ml/min Est GFR ( Amer) Est GFR (Non-Af Amer) BUN/Creatinine Ratio (10-20) Glucose (70-99) mg/dl Lactate 4.5 H* (0.4-2.0) mmol/L Calcium (8.5-10.1) mg/dl Phosphorus (2.5-4.9) mg/dl Magnesium (1.8-2.4) mg/dl Total Bilirubin (0.2-1) mg/dl Direct Bilirubin (0-0.2) mg/dl AST (15-37) U/L ALT (12-78) U/L Alkaline Phosphatase (45-117) U/L Troponin I (0-0.045) ng/ml Total Protein (6.4-8.2) gm/dl Albumin (3.4-5.0) gm/dl Globulin (2.5-4.0) gm/dl Albumin/Globulin Ratio (0.9-2) Procalcitonin 1.05 H (0-0.5) ng/ml Urine Color Urine Appearance (Clear) Urine pH (4.5-7.5) Ur Specific [place] (1.000-1.030) Urine Protein (Negative) Urine Glucose (UA) (Negative) Urine Ketones (Negative) Urine Blood (Negative) Urine Nitrite (Negative) Urine Bilirubin (Negative) Urine Urobilinogen (Negative) Ur Leukocyte Esterase (Negative) Urine WBC (Auto) (0-5) /hpf Urine RBC (Auto) (0-4) /hpf U Hyaline Cast (Auto) (0-5) /lpf U Epithel Cells (Auto) (0-5) /lpf Urine Bacteria (Auto) (Negative) WBC Casts (0) /lpf Urine Yeast (None Prsent) Influenza Type A (PCR) (Neg) Influenza Type B (PCR) (Neg) 11/20/19 11/20/19 11/20/19 Range/Units 14:50 15:55 17:20 WBC (4.8-10.8) K/uL RBC (4.7-6.1) M/uL Hgb (14.0-18.0) g/dL Hct (42-52) % MCV (80-100) fL MCH (25-34) pg MCHC (32-36) g/dL RDW Std Deviation (36.4-46.3) fL RDW Coeff of Vineet (11.5-14.5) % Plt Count (130-400) K/uL MPV (7.4-10.4) fL Immature Gran % (Auto) % Neut % (Auto) % Lymph % (Auto) % [place] % (Auto) % Eos % (Auto) % Baso % (Auto) % Immature Gran # (Auto) (0.00-0.02) K/uL Neut # (Auto) (1.4-6.5) K/uL Lymph # (Auto) (1.2-3.4) K/uL [place] # (Auto) (0.11-0.59) K/uL Eos # (Auto) (0-0.5) K/uL Baso # (Auto) (0-0.2) K/uL Absolute Nucleated RBC (0-0) K/uL Nucleated RBC % (auto) % Toxic Granulation Dohle Bodies Giant Platelets Polychromasia Ovalocytes Echinocytes PT (9.0-12.0) Seconds INR (0.9-1.1) APTT (21.0-31.0) Seconds PTT Ratio VBG pH (7.36-7.41) VBG pCO2 (38-50) mmHg VBG pO2 mmHg VBG HCO3 mmol/L VBG O2 Saturation % VBG Base Excess mEq/L Barometric Pressure mm/Hg Sodium (136-145) mmol/L Potassium (3.5-5.1) mmol/L Chloride (98-107) mmol/L Carbon Dioxide (21-32) mmol/L Anion Gap (3-11) BUN (7-18) mg/dl Creatinine (0.6-1.4) mg/dl Est Cr Clr Drug Dosing ml/min Est GFR ( Amer) Est GFR (Non-Af Amer) BUN/Creatinine Ratio (10-20) Glucose (70-99) mg/dl Lactate 2.1 H* (0.4-2.0) mmol/L Calcium (8.5-10.1) mg/dl Phosphorus (2.5-4.9) mg/dl Magnesium (1.8-2.4) mg/dl Total Bilirubin (0.2-1) mg/dl Direct Bilirubin (0-0.2) mg/dl AST (15-37) U/L ALT (12-78) U/L Alkaline Phosphatase (45-117) U/L Troponin I (0-0.045) ng/ml Total Protein (6.4-8.2) gm/dl Albumin (3.4-5.0) gm/dl Globulin (2.5-4.0) gm/dl Albumin/Globulin Ratio (0.9-2) Procalcitonin (0-0.5) ng/ml Urine Color Yellow Urine Appearance Turbid A (Clear) Urine pH 8.5 H (4.5-7.5) Ur Specific [place] 1.008 (1.000-1.030) Urine Protein 1+ H (Negative) Urine Glucose (UA) Negative (Negative) Urine Ketones Negative (Negative) Urine Blood 3+ H (Negative) Urine Nitrite Positive A (Negative) Urine Bilirubin Negative (Negative) Urine Urobilinogen Negative (Negative) Ur Leukocyte Esterase 2+ H (Negative) Urine WBC (Auto) >30 H (0-5) /hpf Urine RBC (Auto) 10-30 H (0-4) /hpf U Hyaline Cast (Auto) 1-5 (0-5) /lpf U Epithel Cells (Auto) >30 H (0-5) /lpf Urine Bacteria (Auto) 4+ H (Negative) WBC Casts 1-5 H (0) /lpf Urine Yeast Budding w/ Hyphae A (None Prsent) Influenza Type A (PCR) Neg for Influ A (Neg) Influenza Type B (PCR) Neg for Influ B (Neg) Administered Medications Lactated Ringer's (Lr) 1,000 mls @ 125 mls/hr IV .Q8H [facility] Stop: 12/20/19 18:29 Last Infusion: 11/20/19 22:04 Dose: 0 mls/hr Documented by: [id number] Admin: 11/20/19 18:31 Dose: 125 mls/hr Documented by: [id number] Albumin Human (Albumin 25%) 50 mls @ 50 mls/hr IV Q1H [facility] Stop: 11/21/19 01:14 Last Admin: 11/20/19 23:23 Dose: 50 mls/hr Documented by: [id number] Discontinued Medications Sodium Chloride (Nss 1000ml) 2,000 mls @ 999 mls/hr IV .Q2H1M ONE Stop: 11/20/19 16:26 Last Infusion: 11/20/19 16:12 Dose: 0 mls/hr Documented by: [id number] Admin: 11/20/19 14:59 Dose: 999 mls/hr Documented by: [id number] Piperacillin Sod/Tazobactam Sod (Zosyn) 4.5 gm in 120 mls @ 240 mls/hr IV NOW ONE Stop: 11/20/19 14:55 Last Infusion: 11/20/19 15:50 Dose: 0 mls/hr Documented by: [id number] Admin: 11/20/19 14:59 Dose: 240 mls/hr Documented by: [id number] Vancomycin HCl 1,500 mg/ (Sodium Chloride) 530 mls @ 200 mls/hr IV NOW ONE Stop: 11/20/19 17:04 Last Infusion: 11/20/19 18:22 Dose: 0 mls/hr Documented by: [id number] Admin: 11/20/19 15:32 Dose: 200 mls/hr Documented by: [id number] Potassium Chloride (K Cesar / Wtr) 10 meq in 100 mls @ 100 mls/hr IV Q1H [facility] Stop: 11/20/19 17:59 Last Infusion: 11/20/19 18:12 Dose: 0 mls/hr Documented by: [id number] Admin: 11/20/19 17:04 Dose: 100 mls/hr Documented by: [id number] Infusion: 11/20/19 17:03 Dose: 100 mls/hr Documented by: [id number] Admin: 11/20/19 16:03 Dose: 100 mls/hr Documented by: [id number] Sodium Chloride (Nss 1000ml) 1,000 mls @ 999 mls/hr IV .Q1H1M ONE Stop: 11/20/19 16:54 Last Infusion: 11/20/19 17:22 Dose: 0 mls/hr Documented by: [id number] Admin: 11/20/19 16:03 Dose: 999 mls/hr Documented by: [id number] Albumin Human (Albumin 25%) 50 mls @ 50 mls/hr IV Q1H [facility] Stop: 11/20/19 22:29 Last Infusion: 11/20/19 21:38 Dose: 0 mls/hr Documented by: [id number] Admin: 11/20/19 21:00 Dose: 50 mls/hr Documented by: [id number] Infusion: 11/20/19 21:00 Dose: 50 mls/hr Documented by: [id number] Admin: 11/20/19 20:30 Dose: 50 mls/hr Documented by: [id number] Imaging Data Radiologist's Impression: XR chest 1V portable CLINICAL HISTORY: SEPSIS dyspnea COMPARISON STUDY: No previous studies for comparison. FINDINGS: The bones soft tissues and hemidiaphragms are normal. The cardiomediastinal silhouette is normal. The lungs are clear. The pulmonary vasculature is normal. Possible right subdiaphragmatic free air. IMPRESSION: Possible right subdiaphragmatic free air. Follow-up is recommended to exclude any possibility of a perforated viscus. ACT 112: Negative or not required by law. -------- CT SCAN OF THE ABDOMEN AND PELVIS WITHOUT IV CONTRAST CLINICAL HISTORY: Generalized abdominal pain. Jaundice. Duodenal carcinoma. COMPARISON STUDY: Abdominal CT dated 09/04/2019. TECHNIQUE: CT scan of the abdomen and pelvis is performed from the lung bases to the proximal femora. Images are reviewed in the axial, sagittal, and coronal planes. IV contrast was not administered for this examination as per the ref erring clinician. Note that the examination was performed in significantly suboptimal fashion without oral and IV contrast. The examination is also compromised by motion artifact and streak artifact from the arms which could not be related above the abdomen. A dose lowering technique was utilized adhering to the principles of ALARA. CT DOSE: 839.63 mGycm FINDINGS: Lung bases: The heart is normal in size and without pericardial effusion. Emphysematous change is noted at the lung bases. No airspace consolidation or pleural effusion is identified. Liver: The unenhanced liver is normal in size, contour, and attenuation. There is moderate intrahepatic biliary ductal dilatation, greatest at the left lobe. There are numerous calcified hepatic granulomas. No portal venous gas is clearly seen. Gallbladder: The gallbladder is markedly distended and filled with slightly hyperdense fluid. No significant surrounding inflammation is identified. Spleen: Normal in size and attenuation. There are numerous calcified splenic granulomas. Pancreas: Pancreas is atrophic. The duodenal mass lesion is indistinguishable from the pancreatic head which may be invaded. The pancreatic duct appears dilated. Adrenal glands: Unremarkable. Kidneys: The unenhanced kidneys demonstrate cortical atrophy and are without hydronephrosis. There are no renal calculi identified. 1.4 cm cyst is noted on the left. Abdominal vasculature: There is advanced atherosclerotic calcification and ectasia of the abdominal aorta. 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 Stomach and bowel: Gastrostomy and jejunostomy tubes are in place. A large irregular mass lesion is present involving the proximal duodenum. This is best seen on image #183, and this measures approximately 8 cm in length. There is no bowel obstruction. 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 The appendix is normal as imaged. There is engorgement of the mesenteric veins. Mesenteric venous gas is noted in the upper abdomen as seen on image #153. Peritoneum: There is a moderate volume of intraperitoneal free air, greatest below the diaphragm. Numerous small foci of intracranial free air are present in the mid to lower abdomen. No abdominal ascites is seen. Lymphadenopathy: There are numerous mildly enlarged upper abdominal lymph nodes around the proximal duodenum. Pelvic viscera: The prostate gland is mildly enlarged and heterogeneous. The bladder wall is thickened and trabeculated indicating chronic outlet obstruction. A calcification is again seen within the left wall of the bladder. Skeletal structures: The skeletal structures are heterogeneously osteopenic. There is moderate to advanced lumbosacral spondylosis. No lytic or blastic lesions are seen. IMPRESSION: 1. Significantly suboptimal examination without oral and IV contrast. The examination is also compromised by streak and motion artifact. 2. There is a moderate volume of intraperitoneal free air. Perforated viscus is the diagnosis of exclusion. 3. There is extensive pneumatosis intestinalis identified throughout the colon with surrounding pericolonic inflammation. Colonic ischemia is the diagnosis of exclusion. 4. Mesenteric venous gas is present in the upper abdomen. 5. A large mass lesion is again seen involving the proximal jejunum. This has likely increased in size from 09/04/2019 and may invade the head of the pancreas. 6. There is moderate intrahepatic biliary ductal dilatation, as well as dilatation of the pancreatic duct. This is new from 09/04/2019 and likely related to obstructing mass lesion. 7. The gallbladder is markedly distended. No pericystic inflammation is identified. 8. Gastrostomy and jejunostomy tubes are in place. 9. Additional findings as above. ACT 112: Negative or not required by law. Blood Pressure Blood Pressure Findings: Low blood pressure Discharge Plan Visit Data *Final* Discharge Date/Time: 11/20/19 23:20 Chief Complaint: Hypotension Stated Complaint: B/P 58/40, DR BLAIRE ESQUEDA CALLED DOWN ED Provider: Delfin Hamilton Discharge Problem: Sepsis, Duodenal adenocarcinoma, Paroxysmal atrial fibrillation, Hypotension, Acute hypokalemia, H/O left bundle branch block, Acute renal insufficiency, Biliary obstruction, Elevated INR Patient Disposition: Admitted As Inpatient Discharge Instructions Interventions: ED Discharge Assessment Last Done: 11/20/19 23:20 Meds Home Medications and Allergies Home Medications Medication Instructions Recorded Confirmed Type simvastatin 10 mg tablet 10 mg FEEDING TUBE DAILY 09/27/19 11/20/19 History acetaminophen 1,000 mg FEEDING TUBE Q8H PRN 10/03/19 11/20/19 History lansoprazole [Prevacid SoluTab] 30 mg FEEDING TUBE DAILY 10/31/19 11/20/19 History sodium bicarbonate 650 mg tablet 650 mg PO TID tab 11/19/19 11/20/19 History mupirocin 1 applic TOPICAL UD 11/20/19 11/20/19 History prochlorperazine maleate 25 mg PO UD PRN 11/20/19 11/20/19 History [Compazine] Allergies Allergy/AdvReac Type Severity Reaction Status Date / Time No Known Allergies Allergy Verified 11/20/19 15:36 Discharge Problem: Sepsis Qualifiers: Sepsis type: sepsis due to unspecified organism Sepsis acute organ dysfunction status: with acute organ dysfunction Severe sepsis acute organ dysfunction type: acute renal failure Acute renal failure type: unspecified Severe sepsis shock status: unspecified Qualified Code(s): A41.9 - Sepsis, unspecified organism
[2019-11-20 15:31] LABS: Albumin Globulin Ratio 0.4 (0.9-2); Bilirubin,Total 5.5 mg/dl (0.2-1); Globulin 4.1 gm/dl (2.5-4.0); Phosphorus 3.2 mg/dl (2.5-4.9); Total Protein 5.9 gm/dl (6.4-8.2); Troponin I 0.044 ng/ml (0-0.045)
[2019-11-20 15:50] LABS: Influenza A virus by PCR Neg for Influ A (Neg); Influenza B virus by PCR Neg for Influ B (Neg)
[2019-11-20] MEDS ORDERED: SODIUM CHLORIDE 0.9% 1000ML 1,000 ML IV ONE (15:54)
[2019-11-20] MEDS: POTASSIUM CHLORIDE / WTR 10 MEQ/100 ML PLCT IV SCH ×2 (16:03→17:04)
[2019-11-20 16:06] LABS: Dohle Bodies 1+; Echinocytes 2+; Giant Platelets 1+; Ovalocytes 1+; Polychromasia 1+; Toxic Granulation 2+
[2019-11-20 16:10] LABS: Appearance Urine Turbid (Clear); Bacteria Urine Automated 4+ (Negative); Bilirubin Urine Negative (Negative); Blood Urine 3+ (Negative); Color Urine Yellow; Epithelial Cell Urine Auto >30 /lpf (0-5); Glucose Urine UA Negative (Negative); Ketones Urine Negative (Negative); Leukocyte Esterase Urine 2+ (Negative); Nitrite Urine Positive (Negative); Specific Gravity Urine 1.008 (1.000-1.030); Urobilinogen Urine Negative (Negative); WBC Urine Automated >30 /hpf (0-5); pH Urine 8.5 (4.5-7.5)
--- NOTE | 2019-11-20 16:20 | CT Scan Report ---
CT SCAN OF THE ABDOMEN AND PELVIS WITHOUT IV CONTRAST CLINICAL HISTORY: Generalized abdominal pain. Jaundice. Duodenal carcinoma. COMPARISON STUDY: Abdominal CT dated 09/04/2019. TECHNIQUE: CT scan of the abdomen and pelvis is performed from the lung bases to the proximal femora. Images are reviewed in the axial, sagittal, and coronal planes. IV contrast was not administered for this examination as per the referring clinician. Note that the examination was performed in signific antly suboptimal fashion without oral and IV contrast. The examination is also compromised by motion artifact and streak artifact from the arms which could not be related above the abdomen. A dose lower ing technique was utilized adhering to the principles of ALARA. CT DOSE: 839.63 mGycm FINDINGS: Lung bases: The heart is normal in size and without pericardial effusion. Emphysematous change is not ed at the lung bases. No airspace consolidation or pleural effusion is identified. Liver: The unenhanced liver is normal in size, contour, and attenuation. There is moderate intrahepat ic biliary ductal dilatation, greatest at the left lobe. There are numerous calcified hepatic granulo mas. No portal venous gas is clearly seen. Gallbladder: The gallbladder is markedly distended and filled with slightly hyperdense fluid. No sign ificant surrounding inflammation is identified. Spleen: Normal in size and attenuation. There are numerous calcified splenic granulomas. Pancreas: Pancreas is atrophic. The duodenal mass lesion is indistinguishable from the pancreatic hea d which may be invaded. The pancreatic duct appears dilated. Adrenal glands: Unremarkable. Kidneys: The unenhanced kidneys demonstrate cortical atrophy and are without hydronephrosis. There ar e no renal calculi identified. 1.4 cm cyst is noted on the left. Abdominal vasculature: There is advanced atherosclerotic calcification and ectasia of the abdominal a damaris. 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 Aneurysmal dil atation of the celiac trunk is unchanged. This measures up to 1.3 cm. Stomach and bowel: Gastrostomy and jejunostomy tubes are in place. A large irregular mass lesion is p resent involving the proximal duodenum. This is best seen on image #183, and this measures approximat leighann 8 cm in length. There is no bowel obstruction. Extensive pneumatosis intestinalis is seen through out the colon with pericolonic inflammation. The appendix is normal as imaged. There is engorgement o f the mesenteric veins. Mesenteric venous gas is noted in the upper abdomen as seen on image #153. Peritoneum: There is a moderate volume of intraperitoneal free air, greatest below the diaphragm. Num erous small foci of intracranial free air are present in the mid to lower abdomen. No abdominal ascit es is seen. Lymphadenopathy: There are numerous mildly enlarged upper abdominal lymph nodes around the proximal d uodenum. Pelvic viscera: The prostate gland is mildly enlarged and heterogeneous. The bladder wall is thickene d and trabeculated indicating chronic outlet obstruction. A calcification is again seen within the le ft wall of the bladder. Skeletal structures: The skeletal structures are heterogeneously osteopenic. There is moderate to adv anced lumbosacral spondylosis. No lytic or blastic lesions are seen. IMPRESSION: 1. Significantly suboptimal examination without oral and IV contrast. The examination is also comprom ised by streak and motion artifact. 2. There is a moderate volume of intraperitoneal free air. Perforated viscus is the diagnosis of excl usion. 3. There is extensive pneumatosis intestinalis identified throughout the colon with surrounding peric olonic inflammation. Colonic ischemia is the diagnosis of exclusion. 4. Mesenteric venous gas is present in the upper abdomen. 5. A large mass lesion is again seen involving the proximal jejunum. This has likely increased in siz e from 09/04/2019 and may invade the head of the pancreas. 6. There is moderate intrahepatic biliary ductal dilatation, as well as dilatation of the pancreatic duct. This is new from 09/04/2019 and likely related to obstructing mass lesion. 7. The gallbladder is markedly distended. No pericystic inflammation is identified. 8. Gastrostomy and jejunostomy tubes are in place. 9. Additional findings as above. ACT 112: Negative or not required by law. Electronically signed by: Bony Cruz M.D. 11/20/2019 4:19 PM
[2019-11-20 16:30] LABS: Protein Urine 1+ (Negative); Sulfosalicylic Acid Urine Positive (Negative)
[2019-11-20] MEDS ORDERED: LACTATED RINGER'S 1,000 ML IV SCH (18:30)
[2019-11-20] MEDS: ALBUMIN 25% 50 ML IV SCH ×3 (20:30→23:23)
[2019-11-20] MEDS ORDERED: HEPARIN 100 UNIT/ML 5ML FLUSH FLUSH PRN (23:45)
[2019-11-20] MEDS ORDERED: HEPARIN SOD 5,000 UNIT/0.5 ML VIAL SQ SCH (23:57)
[2019-11-20] MEDS ORDERED: ONDANSETRON INJ 2 MG/ML 2 ML VIAL IV PRN (23:57)
[2019-11-21] MEDS ORDERED: PIPERACILLIN/TAZOBACTAM 3.375 GM in DEXTROSE 5% 100 ML IV ONE (00:15)
[2019-11-21] MEDS: ALBUMIN 25% 50 ML IV SCH (00:32)
[2019-11-21] MEDS ORDERED: SODIUM CHLORIDE 0.9% 1000ML 500 ML IV ONE (02:09)
--- NOTE | 2019-11-21 05:06 | History & Physical Report ---
Date of Service November 21, 2019 The patient was seen and examined on November 20, 2019 Assessment & Plan (1) Sepsis: Patient presents to the emergency department with sepsis/hypotension with history of duodenal adenocarcinoma, biliary obstruction and imaging suggesting free intraperitoneal air associated with perforated viscus- Emergency department was concerned regarding possibility that the free air was associated with a dislodged jejunostomy tube from a few weeks ago, however, there is noted significant colonic inflammation, which would lean toward a diagnosis of a perforated viscus. We will consult gastroenterology for their opinion, who was consulted by the ED over the phone. NPO IV fluids Zosyn IV Zofran 4 mg IV every 6 hours as needed. Famotidine IV 20 mg every 12 hours. Patient will be admitted to a hospice room. We will consult palliative care as well, as family preference is for the patient to return home if possible. Patient is not in need of hospice type medications at this particular moment. 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 Present on Admission?: Yes (3) Biliary obstruction: Elevated bilirubin and CT suggesting increasing mass lesion with possible involvement of pancreatic head likely causing bile duct obstruction. Associated free intraperitoneal air and question of perforated viscus, along with patient being a poor surgical candidate related to those findings. Gastroenterology consulted over the phone by ED, and did not feel that stent placement would be a good option. Present on Admission?: Yes (4) Free intraperitoneal air: See above Present on Admission?: Yes (5) Perforated abdominal viscus: See above Present on Admission?: Yes (6) Paroxysmal atrial fibrillation: Optimize magnesium and IV fluid rehydration to minimize potential development. Present on Admission?: Yes (7) Acute renal insufficiency: Creatinine 1.5 upon admission, with range 0.69-0.98. Rehydrate and follow. Present on Admission?: Yes (8) Hypotension: Secondary to sepsis and dehydration. For now, place patient on IV Zosyn, albumin IV and IV fluids until seen by palliative in the a.m. Family plans are for the patient to be brought home with hospice possibly. Present on Admission?: Yes (9) Acute hypokalemia: Associated with acute renal insufficiency. Placing on normal saline with potassium, and follow serial laboratories Present on Admission?: Yes History of Present Illness Chief Complaint: The patient was brought to the emergency department due to increased fatigue, generalized weakness, jaundice and low blood pressure when seen at the [facility] earlier in the day. Primary Care Provider: Annia Dyer MD The patient is an 84-year-old male with a past medical history including duodenal adenocarcinoma, paroxysmal atrial fibrillation, left bundle branch block, acute renal insufficiency, biliary obstruction, hyponatremia, hypophosphatemia, hyperkalemia, pericardial effusion, chronic systolic CHF, carcinoma of duodenum, hyperlipidemia, hypertension and severe protein calorie malnutrition. He is brought to the emergency department after being noticed at the [facility] today to have increased fatigue, generalized weakness, new onset jaundice and hypotension. He was noted in the emergency department to be jaundiced, dehydrated, hypotensive, and head CT of abdomen pelvis suggestive of personal perforated viscus with moderate volume of free intraperitoneal air, with perforated viscus being the diagnosis of exclusion. There was also seen extensive pneumatosis intestinalis throughout the colon with surrounding pericolonic inflammation, with colonic ischemia being the diagnosis of exclusion. Mesenteric venous gas was present in the upper abdomen. A large mass lesion was again seen involving the proximal jejunum, which was likely increased in size from 09/04/2019 and may now invade the head of the pancreas. There is moderate intrahepatic biliary ductal dilatation and pancreatic duct dilatation, new from 09/04/2019 and likely related to an obstructing mass lesion. The gallbladder is markedly distended without inflammation. There were gastrostomy and jejunostomy tubes in place. Calls have been made to gastroenterology, regarding possibility of stent placement, as it was question to whether the presence of gas may been related to a displaced jejunostomy tube of a few weeks ago. However, significant pericolonic inflammation noted would suggest a more acute process such as perforated viscus, along with the patient's clinical presentation of significant hypotension and altered mentation. Allergies Allergy/AdvReac Type Severity Reaction Status Date / Time No Known Allergies Allergy Verified 11/20/19 15:36 Home Medications Home Medications Medication Instructions Recorded Confirmed Type CPAP Machine #1 ea 07/13/19 11/20/19 Rx simvastatin 10 mg tablet 10 mg FEEDING TUBE DAILY 09/27/19 11/20/19 History Wheeled Walker #1 ea 10/02/19 11/20/19 Rx acetaminophen 1,000 mg FEEDING TUBE Q8H PRN 10/03/19 11/20/19 History Peptamen 1.5 See Rx Instructions .ROUTE 10/28/19 11/20/19 Rx .COMPLEX #6000 ml sennosides [senna] 8.8 mg FEEDING TUBE BID PRN #0 ml 10/28/19 11/20/19 Rx lansoprazole [Prevacid SoluTab] 30 mg FEEDING TUBE DAILY 10/31/19 11/20/19 History sodium bicarbonate 650 mg tablet 650 mg PO TID tab 11/19/19 11/20/19 History mupirocin 1 applic TOPICAL UD 11/20/19 11/20/19 History prochlorperazine maleate 25 mg PO UD PRN 11/20/19 11/20/19 History [Compazine] Past Med/Surg History Medical History Basal cell carcinoma Carcinoma of duodenum Cardiomyopathy Carpal tunnel syndrome Chronic systolic CHF (congestive heart failure) Diverticulosis Goals of care, counseling/discussion HTN (hypertension) (Chronic) SRIKANTH (obstructive sleep apnea) (Chronic) Paroxysmal atrial fibrillation Pericardial effusion Surgical History H/O carpal tunnel repair S/P jejunostomy 09/17/19 Dr. Guardado at [facility]- Diagnostic laparoscopy, Laparoscopic 16F jejunostomy tube placement, 20F PEG with T-fasteners, Bilateral TAP blocks with Exparel S/P tonsillectomy Family History Father Cancer Denies family history of Crohn's disease Colorectal cancer Ulcerative colitis Social History Preferred Language: Polish Communication Ability: Effective Visual Impairment: No Limitations Treating Inspector Required: No Beliefs That Will Affect Care: Nondenominational Nondenominational Beliefs: Confucianism. marital status: Current Living Situation: Spouse Current Living Situation Comment: With [employer]. current occupational status: retired Other Information That Helps Us Care for You: No Feels Safe at Home: Yes Safety Concerns: Feels Safe At This Time Smoking Status: Former smoker Tobacco Type: cigarettes ; Do You Dip or Chew Tobacco: No ; Second Hand Exposure: No ; Tobacco Cessation Education Requested by Patient: No Hx Alcohol Use: No Hx Substance Use: No Seatbelt Use: always Review of Systems Review of Systems: Unobtainable due to cognitive status Physical Exam Physical Exam: The patient is lethargic, answers that he is in no pain. He is jaundiced and icteric, lying in bed and in no acute distress. HEENT--PERRL, EOMI, mucous membranes and oropharynx dry. Icteric. Neck--supple. No JVD. No bruits. Thyroid normal, trachea midline, no adenopathy. Heart--normal S1 and S2. No murmurs, rubs or gallops. Lungs--clear bilaterally, no respiratory distress, no accessory muscle use. Abdomen--decreased bowel sounds and soft. Nontender. Nondistended. Mildly tympanitic. Extremities--no cyanosis or clubbing. No edema. Dermatologic--jaundiced. Neurologic--cranial nerves II through XII grossly intact. Rheumatologic--normal range of motion. Psychiatric--very lethargic Results & Data Vital Signs (Past 12 Hours) Vital Signs Temp Pulse Pulse Resp BP BP Pulse Ox 11/21/19 04:04 97.5 F L 79 18 85/41 L 96 11/21/19 01:23 97.5 F L 55 L 12 80/40 L 98 11/21/19 00:27 97.5 F L 62 12 75/44 L 97 11/20/19 23:48 98.1 F 88 16 90/50 L 97 11/20/19 23:45 98.1 F 88 16 90/50 L 97 11/20/19 22:30 58 L 22 81/49 L 100 11/20/19 22:00 78 18 83/50 L 100 11/20/19 21:45 79 24 85/52 L 100 11/20/19 21:30 74 20 84/46 L 100 11/20/19 21:08 62 20 83/44 L 95 11/20/19 20:45 97.5 F L 86 19 91/53 L 100 11/20/19 20:30 75 19 92/52 L 100 11/20/19 20:15 87 19 90/56 L 100 11/20/19 19:57 87 18 89/54 L 100 11/20/19 19:39 91 H 16 97/65 L 98 11/20/19 19:15 88 17 98/60 L 100 11/20/19 19:04 82 19 91/60 L 100 11/20/19 18:45 89 19 92/57 L 100 11/20/19 18:37 90 19 93/59 L 11/20/19 18:15 89 17 106/64 100 11/20/19 18:00 88 17 97/64 L 100 11/20/19 17:45 87 18 92/62 L 100 11/20/19 17:30 81 18 96/64 L 99 11/20/19 17:15 87 17 107/63 100 11/20/19 17:00 88 17 102/64 100 Pulse Ox 11/21/19 04:04 11/21/19 01:23 11/21/19 00:27 11/20/19 23:48 11/20/19 23:45 98 11/20/19 22:30 11/20/19 22:00 11/20/19 21:45 11/20/19 21:30 11/20/19 21:08 11/20/19 20:45 11/20/19 20:30 11/20/19 20:15 11/20/19 19:57 11/20/19 19:39 11/20/19 19:15 11/20/19 19:04 11/20/19 18:45 11/20/19 18:37 11/20/19 18:15 11/20/19 18:00 11/20/19 17:45 11/20/19 17:30 11/20/19 17:15 11/20/19 17:00 Laboratory Results Laboratory Results WBC 3.16 K/uL (4.8-10.8) L 11/20/19 14:30 RBC 3.50 M/uL (4.7-6.1) L 11/20/19 14:30 Hgb 10.5 g/dL (14.0-18.0) L 11/20/19 14:30 Hct 30.3 % (42-52) L 11/20/19 14:30 MCV 86.6 fL (80-100) 11/20/19 14:30 MCH 30.0 pg (25-34) 11/20/19 14:30 MCHC 34.7 g/dL (32-36) 11/20/19 14:30 RDW Std Deviation 51.2 fL (36.4-46.3) H 11/20/19 14:30 RDW Coeff of Vineet 16.4 % (11.5-14.5) H 11/20/19 14:30 Plt Count 287 K/uL (130-400) 11/20/19 14:30 MPV 11.4 fL (7.4-10.4) H 11/20/19 14:30 Immature Gran % (Auto) 1.6 % 11/20/19 14:30 Neut % (Auto) 44.6 % 11/20/19 14:30 Lymph % (Auto) 24.1 % 11/20/19 14:30 [place] % (Auto) 28.5 % 11/20/19 14:30 Eos % (Auto) 0.6 % 11/20/19 14:30 Baso % (Auto) 0.6 % 11/20/19 14:30 Immature Gran # (Auto) 0.05 K/uL (0.00-0.02) H 11/20/19 14:30 Neut # (Auto) 1.41 K/uL (1.4-6.5) 11/20/19 14:30 Lymph # (Auto) 0.76 K/uL (1.2-3.4) L 11/20/19 14:30 [place] # (Auto) 0.90 K/uL (0.11-0.59) H 11/20/19 14:30 Eos # (Auto) 0.02 K/uL (0-0.5) 11/20/19 14:30 Baso # (Auto) 0.02 K/uL (0-0.2) 11/20/19 14:30 Absolute Nucleated RBC 0.06 K/uL (0-0) H 11/20/19 14:30 Nucleated RBC % (auto) 2.0 % 11/20/19 14:30 Toxic Granulation 2+ 11/20/19 14:30 Dohle Bodies 1+ 11/20/19 14:30 Giant Platelets 1+ 11/20/19 14:30 Polychromasia 1+ 11/20/19 14:30 Ovalocytes 1+ 11/20/19 14:30 Echinocytes 2+ 11/20/19 14:30 PT 26.4 Seconds (9.0-12.0) H 11/20/19 14:30 INR 2.6 (0.9-1.1) H 11/20/19 14:30 APTT 31.9 Seconds (21.0-31.0) H 11/20/19 14:30 PTT Ratio 1.1 11/20/19 14:30 VBG pH 7.32 (7.36-7.41) L 11/20/19 14:48 VBG pCO2 29 mmHg (38-50) L 11/20/19 14:48 VBG pO2 25 mmHg 11/20/19 14:48 VBG HCO3 15 mmol/L 11/20/19 14:48 VBG O2 Saturation < 60.0 % 11/20/19 14:48 VBG Base Excess -10.2 mEq/L 11/20/19 14:48 Barometric Pressure 734.3 mm/Hg 11/20/19 14:48 Sodium 133 mmol/L (136-145) L 11/20/19 14:30 Potassium 2.6 mmol/L (3.5-5.1) L 11/20/19 14:30 Chloride 106 mmol/L (98-107) 11/20/19 14:30 Carbon Dioxide 14 mmol/L (21-32) L 11/20/19 14:30 Anion Gap 13.0 (3-11) H 11/20/19 14:30 BUN 50 mg/dl (7-18) H 11/20/19 14:30 Creatinine 1.50 mg/dl (0.6-1.4) H 11/20/19 14:30 Est Cr Clr Drug Dosing 38.9 ml/min 11/20/19 14:30 Est GFR ( Amer) 48.8 11/20/19 14:30 Est GFR (Non-Af Amer) 42.1 11/20/19 14:30 BUN/Creatinine Ratio 33.4 (10-20) H 11/20/19 14:30 Glucose 123 mg/dl (70-99) H 11/20/19 14:30 Lactate 2.1 mmol/L (0.4-2.0) H* 11/20/19 17:20 Calcium 8.3 mg/dl (8.5-10.1) L 11/20/19 14:30 Phosphorus 3.2 mg/dl (2.5-4.9) 11/20/19 14:30 Magnesium 2.5 mg/dl (1.8-2.4) H 11/20/19 14:30 Total Bilirubin 5.5 mg/dl (0.2-1) H 11/20/19 14:30 Direct Bilirubin 4.7 mg/dl (0-0.2) H 11/20/19 14:30 AST 57 U/L (15-37) H 11/20/19 14:30 ALT 77 U/L (12-78) 11/20/19 14:30 Alkaline Phosphatase 609 U/L (45-117) H 11/20/19 14:30 Troponin I 0.044 ng/ml (0-0.045) 11/20/19 14:30 Total Protein 5.9 gm/dl (6.4-8.2) L 11/20/19 14:30 Albumin 1.8 gm/dl (3.4-5.0) L 11/20/19 14:30 Globulin 4.1 gm/dl (2.5-4.0) H 11/20/19 14:30 Albumin/Globulin Ratio 0.4 (0.9-2) L 11/20/19 14:30 Procalcitonin 1.05 ng/ml (0-0.5) H 11/20/19 14:30 Urine Color Yellow 11/20/19 15:55 Urine Appearance Turbid (Clear) A 11/20/19 15:55 Urine pH 8.5 (4.5-7.5) H 11/20/19 15:55 Ur Specific [place] 1.008 (1.000-1.030) 11/20/19 15:55 Urine Protein 1+ (Negative) H 11/20/19 15:55 Urine Glucose (UA) Negative (Negative) 11/20/19 15:55 Urine Ketones Negative (Negative) 11/20/19 15:55 Urine Blood 3+ (Negative) H 11/20/19 15:55 Urine Nitrite Positive (Negative) A 11/20/19 15:55 Urine Bilirubin Negative (Negative) 11/20/19 15:55 Urine Urobilinogen Negative (Negative) 11/20/19 15:55 Ur Leukocyte Esterase 2+ (Negative) H 11/20/19 15:55 Urine WBC (Auto) >30 /hpf (0-5) H 11/20/19 15:55 Urine RBC (Auto) 10-30 /hpf (0-4) H 11/20/19 15:55 U Hyaline Cast (Auto) 1-5 /lpf (0-5) 11/20/19 15:55 U Epithel Cells (Auto) >30 /lpf (0-5) H 11/20/19 15:55 Urine Bacteria (Auto) 4+ (Negative) H 11/20/19 15:55 WBC Casts 1-5 /lpf (0) H 11/20/19 15:55 Urine Yeast Budding w/ Hyphae (None Prsent) A 11/20/19 15:55 Influenza Type A (PCR) Neg for Influ A (Neg) 11/20/19 14:50 Influenza Type B (PCR) Neg for Influ B (Neg) 11/20/19 14:50 Diagnostic Findings [place], [place] [phone] CT Scan Report Patient: JACQUES WILDEAdmit Date: 11/20/19 MR#: [id number]: [address] [facility] Acct ID:[id number]: Date: [address] [place] [address] Zip: [place] [address] Age: 84Location: ED Sex: M Room/Bed: Att Phy:Diagnosis: B/P 58/40, DR BLAIRE ESQUEDA CALLED DOWN Camrelita Phy: Annia Dyer MDService Date: 11/20/19 Fam Phy:Interpreting Phy: Bony Cruz MD Admit Phy: Ordering Phy: Delfin Hamilton M.D. cc: ~ CT SCAN OF THE ABDOMEN AND PELVIS WITHOUT IV CONTRAST CLINICAL HISTORY: Generalized abdominal pain. Jaundice. Duodenal carcinoma. COMPARISON STUDY: Abdominal CT dated 09/04/2019. TECHNIQUE: CT scan of the abdomen and pelvis is performed from the lung bases to the proximal femora. Images are reviewed in the axial, sagittal, and coronal planes. IV contrast was not administered for this examination as per the referring clinician. Note that the examination was performed in significantly suboptimal fashion without oral and IV contrast. The examination is also compromised by motion artifact and streak artifact from the arms which could not be related above the abdomen. A dose lowering technique was utilized adhering to the principles of ALARA. CT DOSE: 839.63 mGycm FINDINGS: Lung bases: The heart is normal in size and without pericardial effusion. Emphysematous change is noted at the lung bases. No airspace consolidation or pleural effusion is identified. Liver: The unenhanced liver is normal in size, contour, and attenuation. There is moderate intrahepatic biliary ductal dilatation, greatest at the left lobe. There are numerous calcified hepatic granulomas. No portal venous gas is clearly seen. Gallbladder: The gallbladder is markedly distended and filled with slightly hyperdense fluid. No significant surrounding inflammation is identified. Spleen: Normal in size and attenuation. There are numerous calcified splenic granulomas. Pancreas: Pancreas is atrophic. The duodenal mass lesion is indistinguishable from the pancreatic head which may be invaded. The pancreatic duct appears dilated. Adrenal glands: Unremarkable. Kidneys: The unenhanced kidneys demonstrate cortical atrophy and are without hydronephrosis. There are no renal calculi identified. 1.4 cm cyst is noted on the left. Abdominal vasculature: There is advanced atherosclerotic calcification and ectasia of the abdominal aorta. 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 Stomach and bowel: Gastrostomy and jejunostomy tubes are in place. A large irregular mass lesion is present involving the proximal duodenum. This is best seen on image #183, and this measures approximately 8 cm in length. There is no bowel obstruction. 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 The appendix is normal as imaged. There is engorgement of the mesenteric veins. Mesenteric venous gas is noted in the upper abdomen as seen on image #153. Peritoneum: There is a moderate volume of intraperitoneal free air, greatest below the diaphragm. Numerous small foci of intracranial free air are present in the mid to lower abdomen. No abdominal ascites is seen. Lymphadenopathy: There are numerous mildly enlarged upper abdominal lymph nodes around the proximal duodenum. Pelvic viscera: The prostate gland is mildly enlarged and heterogeneous. The bladder wall is thickened and trabeculated indicating chronic outlet obstruction. A calcification is again seen within the left wall of the bladder. Skeletal structures: The skeletal structures are heterogeneously osteopenic. There is moderate to advanced lumbosacral spondylosis. No lytic or blastic lesions are seen. IMPRESSION: 1. Significantly suboptimal examination without oral and IV contrast. The examination is also compromised by streak and motion artifact. 2. There is a moderate volume of intraperitoneal free air. Perforated viscus is the diagnosis of exclusion. 3. There is extensive pneumatosis intestinalis identified throughout the colon with surrounding pericolonic inflammation. Colonic ischemia is the diagnosis of exclusion. 4. Mesenteric venous gas is present in the upper abdomen. 5. A large mass lesion is again seen involving the proximal jejunum. This has likely increased in size from 09/04/2019 and may invade the head of the pancreas. 6. There is moderate intrahepatic biliary ductal dilatation, as well as dilatation of the pancreatic duct. This is new from 09/04/2019 and likely related to obstructing mass lesion. 7. The gallbladder is markedly distended. No pericystic inflammation is identified. 8. Gastrostomy and jejunostomy tubes are in place. 9. Additional findings as above. ACT 112: Negative or not required by law. Electronically signed by: Bony Cruz M.D. 11/20/2019 4:19 PM Dictated: 11/20/19 1602 Transcribed: 11/20/19 1602 Code Status & VTE Plan Code Status DNR/DNI VTE Prophylaxis Plan VTE Prophylaxis will be ordered: Yes PG Care Time/CCT Total # of Minutes Spent Total Time Spent with Patient: Total time spent is greater than 50% in coordination of care (as documented) at patient's floor/unit and/or counseling patient: Coding Level of Care Code 45118 Initial Inpt Care Lvl 3 Diagnoses Sepsis A41.9; R65.20; N17.9 Acute renal failure type: unspecified Sepsis acute organ dysfunction status: with acute organ dysfunction Sepsis type: sepsis due to unspecified organism Severe sepsis acute organ dysfunction type: acute renal failure Severe sepsis shock status: unspecified 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 Biliary obstruction K83.1 Free intraperitoneal air K66.8 Perforated abdominal viscus R19.8 Paroxysmal atrial fibrillation I48.0 Acute renal insufficiency N28.9 Hypotension I95.9 Acute hypokalemia E87.6 (1) Sepsis Acute renal failure type: unspecified Sepsis acute organ dysfunction status: with acute organ dysfunction Sepsis type: sepsis due to unspecified organism Severe sepsis acute organ dysfunction type: acute renal failure Severe sepsis shock status: unspecified Qualified Code(s): A41.9 - Sepsis, unspecified organism; R65.20 - Severe sepsis without septic shock; N17.9 - Acute kidney failure, unspecified
[2019-11-21] MEDS: PIPERACILLIN/TAZOBACTAM 3.375 GM in DEXTROSE 5% 100 ML IV SCH ×3 (05:50→21:27)
[2019-11-21] MEDS: NSS + 20MEQ KCL 20 MEQ/1,000 ML BAG IV SCH ×2 (05:50→17:42)
[2019-11-21] MEDS ORDERED: VANCOMYCIN HCL 1,000 MG in SODIUM CHLORIDE 0.9% 250 ML IV SCH (09:30)
--- NOTE | 2019-11-21 11:15 | Palliative Care Consultation ---
Date of Consultation November 21, 2019 Assessment & Plan (1) Goals of care, counseling/discussion: Mr. Guzmán is an 83 year old man known to the palliative care team service from his previous admission in October who presented to the [facility] with hypotension and signs of sepsis. Back in October, he presented with increased abdominal pain, nausea and a 40-50 lb weight loss in a 2-[address] scan at that time revealed a gastric outlet obstruction which led him to undergoing an EGD. 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 He was subsequently transferred to [facility], where pulmonary nodules were discovered. He underwent an ex lap with J-tube placement on September 17. He also has a venting G-tube. He lives at home with his . He was admitted on October 03 and was hypotensive and noted to have pericardial effusions. He has recently undergone one dose of chemotherapy as a palliation attempt to decrease inflammation around the tumor. Initially, the patient and were hopeful for him to be able to undergo a Whipple's proc edure; however, this is no longer an option. A CT scan was performed suggesting intraperitoneal air associated with a perforated viscus. Hislevated bilirubin and CT suggesting increasing mass lesion with possible involvement of pancreatic head likely causing bile duct obstruction GI was consulted over the phone in the Emergency Room, and did not feel that stent placement would be a good option due to his poor prognosis and deconditioned state.He was started on IV antibiotics Unfortunately, this gentleman is extremely deconditioned and has a poor prognosis. His most recent EF is 35%. He appears even more deconditioned than his last admission. Palliative Care was consulted to discuss goals of care. -I met with the patient in room 312. His , Flex, was at the bedside. The patient was resting with his head of bed flat and appeared in no apparent distress. He was able to open his eyes and tell me where he was. He denied pain and just said "do what you gotta do". -The patients wished to speak outside of the room. We discussed his current condition and overall poor response up to this point. She expressed wanting to know more about Hospice. -We talked about Hospice and how it could benefit. I expressed that chemotherapy would no longer be a goal, along with avoiding re-hospitalizations. -Throughout our conversation, it was clear the information was overwhelming, but she kept saying "I don't want to keep putting him through this". -I worry that the care of him at home from a hospice standpoint may be too much for the patients to manage on her own. They do have a niece that lives locally, but ultimately would recommend supplemental caregivers on top of Hospice. -We discussed code status. She did agree to a DNR/DNI approach. -He has been hypotensive with his SBP ranging 75-90. Confirmed that she would NOT want the patient to go to the ICU for inotropic support. If he would decline, she would want to transition to [employer]. -For now, she says 'lets continue for another few days to see how he responds to IV antibiotics and treatment" Overall, his labs and electrolytes are imbalanced. K+ 2.4, Hgb dropped from 10-8.1, Ca+ 7.7 and overall it is clear he is ma lnourished. His states she has been administering home G-tube feedings from 1600 until 0800. He is having some difficulty with seeping around his G-Tube as well for which wound care has seen the patient and will provide conservative management. -We discussed the body's natural decline and caloric needs. -No current symptom management needs at this time. -I did discuss [facility]- hospital visitation policy and reiterated that as he is not actively dying, we will unfortunately need to restrict her visitation to be in compliance with current [facility] recommendations. Advised that should he have signs of a marked decline, we would contact her for immediate visitation. -Patient is active with [facility] and patient is willing to discuss transition to home hospice in a few days. SNF with Hospice is an alternate option should the patients require more assistance than she can manage at home. -Palliative Care will follow and continue to assist with decision making. -PPS 20% (2) Duodenal adenocarcinoma: (3) Free intraperitoneal air: (4) Dehydration: (5) Biliary obstruction: History of Present Illness Reason for Consultation: Goals of care Requesting Physician: Dr. Foote Attending Physician: Adolph West, DO History of Present Illness Mr. Guzmán is an 83 year old man known to the palliative care team service from his previous admission in October who presented to the [facility] with hypotension and signs of sepsis. Back in October, he presented with increased abdominal pain, nausea and a 40-50 lb weight loss in a 2-[address] scan at that time revealed a gastric outlet obstruction which led him to undergoing an EGD. 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 He was subsequently transferred to [facility], where pulmonary nodules were discovered. He underwent an ex lap with J-tube placement on September 17. He also has a venting G-tube. He lives at home with his . He was admitted on October 03 and was hypotensive and noted to have pericardial effusions. He has recently undergone one dose of chemotherapy as a palliation attempt to decrease inflammation around the tumor. Initially, the patient and were hopeful for him to be able to undergo a Whipple's procedure; however, this is no longer an option. A CT scan was performed suggesting intraperitoneal air associated with a perforated viscus. Hislevated bilirubin and CT suggesting increasing mass lesion with possible involvement of pancreatic head likely causing bile duct obstruction GI was consulted over the phone in the Emergency Room, and did not feel that stent placement would be a good option due to his poor prognosis and deconditioned state.He was started on IV antibiotics Unfortunately, this gentleman is extremely deconditioned and has a poor prognosis. He appears even more deconditioned than his last admission. Palliative Care was consulted to discuss goals of care. Please see A/P for further details. Thank you kindly for re-involving the Palliative Care team with this patient. We will follow. Allergies Allergy/AdvReac Type Severity Reaction Status Date / Time No Known Allergies Allergy Verified 11/20/19 15:36 Home Medications Home Medications Medication Instructions Recorded Confirmed Type CPAP Machine #1 ea 07/13/19 11/20/19 Rx simvastatin 10 mg tablet 10 mg FEEDING TUBE DAILY 09/27/19 11/20/19 History Wheeled Walker #1 ea 10/02/19 11/20/19 Rx acetaminophen 1,000 mg FEEDING TUBE Q8H PRN 10/03/19 11/20/19 History Peptamen 1.5 See Rx Instructions .ROUTE 10/28/19 11/20/19 Rx .COMPLEX #6000 ml sennosides [senna] 8.8 mg FEEDING TUBE BID PRN #0 ml 10/28/19 11/20/19 Rx lansoprazole [Prevacid SoluTab] 30 mg FEEDING TUBE DAILY 10/31/19 11/20/19 History sodium bicarbonate 650 mg tablet 650 mg PO TID tab 11/19/19 11/20/19 History mupirocin 1 applic TOPICAL UD 11/20/19 11/20/19 History prochlorperazine maleate 25 mg PO UD PRN 11/20/19 11/20/19 History [Compazine] Patient History Medical History (Updated 11/21/19 @ 11:15 by GOOD Aggarwal) Basal cell carcinoma Carcinoma of duodenum Cardiomyopathy Carpal tunnel syndrome Chronic systolic CHF (congestive heart failure) Diverticulosis Goals of care, counseling/discussion Goals of care, counseling/discussion HTN (hypertension) (Chronic) SRIKANTH (obstructive sleep apnea) (Chronic) Paroxysmal atrial fibrillation Pericardial effusion Surgical History H/O carpal tunnel repair S/P jejunostomy 09/17/19 Dr. Guardado at [facility]- Diagnostic laparoscopy, Laparoscopic 16F jejunostomy tube placement, 20F PEG with T-fasteners, Bilateral TAP blocks with Exparel S/P tonsillectomy Family History Father Cancer Denies family history of Crohn's disease Colorectal cancer Ulcerative colitis Social History Preferred Language: Mohawk Communication Ability: Effective Visual Impairment: No Limitations Fire [employer] Required: No Beliefs That Will Affect Care: L[employer] L[employer]-Day Beliefs: Worship. marital status: Current Living Situation: Spouse Current Living Situation Comment: With Flex. current occupational status: retired Other Information That Helps Us Care for You: No Feels Safe at Home: Yes Safety Concerns: Feels Safe At This Time Smoking Status: Former smoker Tobacco Type: cigarettes ; Do You Dip or Chew Tobacco: No ; Second Hand Exposure: No ; Tobacco Cessation Education Requested by Patient: No Hx Alcohol Use: No Hx Substance Use: No Seatbelt Use: always Results & Data Vital Signs (Past 12 Hours) Vital Signs Temp Pulse Resp BP Pulse Ox Pulse Ox 11/21/19 07:54 90/44 L 11/21/19 07:35 36.5 C 85 12 82/39 L 97 11/21/19 04:04 36.4 C L 79 18 85/41 L 96 11/21/19 01:23 36.4 C L 55 L 12 80/40 L 98 11/21/19 00:27 36.4 C L 62 12 75/44 L 97 11/20/19 23:48 36.7 C 88 16 90/50 L 97 11/20/19 23:45 36.7 C 88 16 90/50 L 97 98 PG Care Time/CCT Total # of Minutes Spent Total Time Spent with Patient: Total time spent is greater than 50% in coordination of care (as documented) at patient's floor/unit and/or counseling patient: 70 Coding Level of Care Code 89034 Inpt Consult Level 3 Diagnoses Goals of care, counseling/discussion Z71.89 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 Free intraperitoneal air K66.8 Dehydration E86.0 Biliary obstruction K83.1 Time Spent (min) 70 Time Spent Midlevel Total time spent 70 minutes with > 50% of that time spent assessing the patient, discussing goals of care and discussing with IDT.
[2019-11-21 11:28] LABS: Creatinine Clr Calc Pharmacy 58.6 ml/min; Est GFR (African American) 79.7; Est GFR (Non-African American) 68.8
[2019-11-21 12:28] LABS: Hematocrit (blood only) 23.4 % (42-52); Hemoglobin 8.1 g/dL (14.0-18.0); Mean Corpuscular Hemoglobin 30.3 pg (25-34); Mean Corpuscular Hgb Conc 34.6 g/dL (32-36); Mean Corpuscular Volume 87.6 fL (80-100); Mean Platelet Volume 10.8 fL (7.4-10.4); Nucleated RBC # (auto) 0.04 K/uL (0-0); Nucleated RBC % (auto) 1.1 %; Platelet Count 241 K/uL (130-400); RDW Coefficient of Variation 16.5 % (11.5-14.5); RDW Standard Deviation 51.5 fL (36.4-46.3); Red Blood Count 2.67 M/uL (4.7-6.1); White Blood Count 3.47 K/uL (4.8-10.8)
[2019-11-21] MEDS: POTASSIUM ACETATE 20 MEQ in 0.9 % SODIUM CHLORIDE 100 ML IV SCH ×2 (12:28→14:28)
[2019-11-21 13:03] LABS: Albumin Level 1.9 gm/dl (3.4-5.0); BUN Creatinine Ratio 32.9 (10-20); Bilirubin Direct 5.4 mg/dl (0-0.2); Bilirubin,Total 6.6 mg/dl (0.2-1); Calcium 7.7 mg/dl (8.5-10.1); Creatinine Clr Calc Pharmacy 62.3 ml/min; Est GFR (African American) 85.9; Est GFR (Non-African American) 74.2; Potassium 2.4 mmol/L (3.5-5.1); Total Protein 4.6 gm/dl (6.4-8.2)
[2019-11-21 13:22] LABS: ALC (manual) 0.84 K/uL (1.2-3.4); ANC (manual) 2.03 K/uL (1.4-6.5); Dohle Bodies 2+; Eosinophils # (manual) 0.06 K/uL (0-0.5); Eosinophils % (manual) 1.7 %; Lymphocytes # (manual) 0.84 K/uL (1.2-3.4); Lymphocytes % (manual) 24.3 %; Metamyelocytes # (manual) 0.06 K/uL (0-0); Metamyelocytes % (manual) 1.7 %; Monocytes # (manual) 0.42 K/uL (0.11-0.59); Monocytes % (manual) 12.2 %; Myelocytes # (manual) 0.06 K/uL (0-0); Myelocytes % (manual) 1.7 %; Neutrophils # (manual) 2.03 K/uL (1.4-6.5); Neutrophils % (manual) 58.4 %; Target Cells 1+; Toxic Granulation 2+
--- NOTE | 2019-11-21 15:27 | Electrocardiogram Report ---
Test Reason : Blood Pressure : / mmHG Vent. Rate : 074 BPM Atrial Rate : 288 BPM P-R Int : 000 ms QRS Dur : 160 ms QT Int : 456 ms P-R-T Axes : 000 023 167 degrees QTc Int : 506 ms Atrial fibrillation with premature ventricular or aberrantly conducted complexes Left bundle branch block Abnormal ECG When compared with ECG of 18-OCT-2019 19:49, Atrial fibrillation has replaced Sinus rhythm Confirmed by Jed Mora ([id number]) on 11/21/2019 3:27:24 PM Referred By: Humberto Jordan Confirmed By:Jed Mora
--- NOTE | 2019-11-21 16:09 | Hospitalist Progress Note ---
Date of Service November 21, 2019 Assessment & Plan (1) Sepsis: due to cholangitis, duodenal tumor likely occluding drainage from biliary duct lesion cannot be stented, discussed with GI will treat with Zosyn, IV fluids bili up to 6.6, alk phos elevated in 500's leukopenia, lactic acid down to 1.2 blood cultures growing gram positive cocci and urine culture with gram negative bacilli continue Zosyn and Vanco very poor prognosis, continue treatment as is, would not escalate to ICU plan for hospice (2) Duodenal adenocarcinoma: had one treatment last week was scheduled for further treatment tomorrow but will stop due to sepsis need for hospice (3) Biliary obstruction: Elevated bilirubin and CT suggesting increasing mass lesion with possible involvement of pancreatic head likely causing bile duct obstruction. Associated free intraperitoneal air and question of perforated viscus, along with patient being a poor surgical candidate related to those findings. Gastroenterology consulted over the phone by ED, and did not feel that stent placement would be a good option, could not be done with mass plan for hospice (4) Free intraperitoneal air: See above (5) Perforated abdominal viscus: See above (6) Paroxysmal atrial fibrillation: Optimize magnesium and IV fluid rehydration to minimize potential development. (7) Acute renal insufficiency: resolved, Cr down to 1.1 from 1.5 continue IV fluids as he cannot get tube feeds (8) Hypotension: Secondary to sepsis and dehydration. For now, place patient on IV Zosyn, albumin IV and IV fluids until seen by palliative in the a.m. Family plans are for the patient to be brought home with hospice if he can be stable (9) Acute hypokalemia: still low at 2.4 continue K in fluids and 40mEq ordered via central line Admission and Anticipated Discharge Date Admission Date: November 20, 2019 Anticipated date of discharge: 11/24/19 Subjective patient is very fatigued, sleeping all day BP running low to low normal reviewed chart, reviewed imaging from admission and labs repeat labs today show anemia, leukopenia Bili is further elevated at 6.6, K low at 2.4, Cr stable, alk phos elevated long discussion with patient's at the bedside we will continue IV fluids and antibiotics, keep him comfortable would not escalate care to ICU if he deteriorates will pursue hospice either inpatient or at home will see how he does over the next 1-2 days and determine if he will get strong enough to return home safely she asked about feedings, told her they will not resume, would not help his overall prognosis, only make things more complicated Review of Systems Review of Systems: Unobtainable due to cognitive status (somnolent) Physical Exam Constitutional: + ill appearing, + thin, + altered mental status and + lethargic Eyes: PERRL and normal accommodation; sclerae not anicteric (icterus) ENMT: Nose: + dry nasal mucous membranes Mouth: + dry oral mucous membranes Neck: trachea midline, no thyromegaly Respiratory: normal respiratory effort; no respiratory distress Auscultation: + diminished lung sounds (bases); no rales and no wheezes Cardiovascular: RRR, no murmur, no edema (weak peripheral pulses) Gastrointestinal (Abdomen): Inspection/Auscultation: + abdominal surgical scar and + hypoactive bowel sounds; + abdomen abnormal to inspection (G tube and J tube) Percussion/Palpation: + abdomen tender and abdomen soft; no ascites Musculoskeletal: Head/Neck/Chest: normocephalic and head atraumatic Extremities: + abnormal strength (diffuse weakness) Skin: + turgor decreased and + jaundice Neurologic: patellar DTR's 2+ bilat, sensation intact and PERRL, EOMI, accommodation nl, no face palsy, no dysarthria Lymphatic: no cervical or axillary lymphadenopathy Results & Data ([facility]) Vital Signs (Past 12 Hours) Vital Signs Temp Pulse Resp BP Pulse Ox 11/21/19 15:02 36.6 C 83 16 89/56 L 98 11/21/19 07:54 90/44 L 11/21/19 07:35 36.5 C 85 12 82/39 L 97 11/21/19 04:04 36.4 C L 79 18 85/41 L 96 Laboratory Results Laboratory Results - last 24 hr 11/20/19 11/20/19 11/20/19 14:30 14:30 15:55 WBC RBC Hgb Hct MCV MCH MCHC RDW Std Deviation RDW Coeff of Vineet Plt Count MPV Absolute Nucleated RBC Nucleated RBC % (auto) Neutrophils % (Manual) Lymphocytes % (Manual) Monocytes % (Manual) Eosinophils % (Manual) Metamyelocytes % (Man) Myelocytes % (Man) Neutrophils # (Manual) Total Absolute Neuts Lymphocytes # (Manual) Total Abs Lymphocytes Monocytes # (Manual) Eosinophils # (Manual) Metamyelocytes # (Man) Myelocytes # (Manual) Toxic Granulation 2+ Dohle Bodies 1+ Giant Platelets 1+ Polychromasia 1+ Target Cells Ovalocytes 1+ Echinocytes 2+ Sodium Potassium Chloride Carbon Dioxide Anion Gap BUN Creatinine Est Cr Clr Drug Dosing Est GFR ( Amer) Est GFR (Non-Af Amer) BUN/Creatinine Ratio Glucose Lactate Calcium Total Bilirubin Direct Bilirubin AST ALT Alkaline Phosphatase Total Protein Albumin Procalcitonin 1.05 H Urine Color Yellow Urine Appearance Turbid A Urine pH 8.5 H Ur Specific [place] 1.008 Urine Protein 1+ H Urine Glucose (UA) Negative Urine Ketones Negative Urine Blood 3+ H Urine Nitrite Positive A Urine Bilirubin Negative Urine Urobilinogen Negative Ur Leukocyte Esterase 2+ H Urine WBC (Auto) >30 H Urine RBC (Auto) 10-30 H U Hyaline Cast (Auto) 1-5 U Epithel Cells (Auto) >30 H Urine Bacteria (Auto) 4+ H WBC Casts 1-5 H Urine Yeast Budding w/ Hyphae A 11/20/19 11/21/19 11/21/19 17:20 10:37 12:07 WBC 3.47 L RBC 2.67 L Hgb 8.1 L Hct 23.4 L MCV 87.6 MCH 30.3 MCHC 34.6 RDW Std Deviation 51.5 H RDW Coeff of Vineet 16.5 H Plt Count 241 MPV 10.8 H Absolute Nucleated RBC 0.04 H Nucleated RBC % (auto) 1.1 Neutrophils % (Manual) 58.4 Lymphocytes % (Manual) 24.3 Monocytes % (Manual) 12.2 Eosinophils % (Manual) 1.7 Metamyelocytes % (Man) 1.7 Myelocytes % (Man) 1.7 Neutrophils # (Manual) 2.03 Total Absolute Neuts 2.03 Lymphocytes # (Manual) 0.84 L Total Abs Lymphocytes 0.84 L Monocytes # (Manual) 0.42 Eosinophils # (Manual) 0.06 Metamyelocytes # (Man) 0.06 H Myelocytes # (Manual) 0.06 H Toxic Granulation 2+ Dohle Bodies 2+ Giant Platelets Polychromasia Target Cells 1+ Ovalocytes Echinocytes Sodium Potassium Chloride Carbon Dioxide Anion Gap BUN Creatinine 1.00 D Est Cr Clr Drug Dosing 58.6 Est GFR ( Amer) 79.7 Est GFR (Non-Af Amer) 68.8 BUN/Creatinine Ratio Glucose Lactate 2.1 H* Calcium Total Bilirubin Direct Bilirubin AST ALT Alkaline Phosphatase Total Protein Albumin Procalcitonin Urine Color Urine Appearance Urine pH Ur Specific [place] Urine Protein Urine Glucose (UA) Urine Ketones Urine Blood Urine Nitrite Urine Bilirubin Urine Urobilinogen Ur Leukocyte Esterase Urine WBC (Auto) Urine RBC (Auto) U Hyaline Cast (Auto) U Epithel Cells (Auto) Urine Bacteria (Auto) WBC Casts Urine Yeast 11/21/19 11/21/19 12:07 12:07 WBC RBC Hgb Hct MCV MCH MCHC RDW Std Deviation RDW Coeff of Vineet Plt Count MPV Absolute Nucleated RBC Nucleated RBC % (auto) Neutrophils % (Manual) Lymphocytes % (Manual) Monocytes % (Manual) Eosinophils % (Manual) Metamyelocytes % (Man) Myelocytes % (Man) Neutrophils # (Manual) Total Absolute Neuts Lymphocytes # (Manual) Total Abs Lymphocytes Monocytes # (Manual) Eosinophils # (Manual) Metamyelocytes # (Man) Myelocytes # (Manual) Toxic Granulation Dohle Bodies Giant Platelets Polychromasia Target Cells Ovalocytes Echinocytes Sodium 141 D Potassium 2.4 L* Chloride 116 H Carbon Dioxide 18 L Anion Gap 7.0 BUN 31 H Creatinine 0.94 Est Cr Clr Drug Dosing 62.3 Est GFR ( Amer) 85.9 Est GFR (Non-Af Amer) 74.2 BUN/Creatinine Ratio 32.9 H Glucose 72 Lactate 1.2 Calcium 7.7 L Total Bilirubin 6.6 H Direct Bilirubin 5.4 H AST 58 H ALT 63 Alkaline Phosphatase 581 H Total Protein 4.6 L D Albumin 1.9 L Procalcitonin Urine Color Urine Appearance Urine pH Ur Specific [place] Urine Protein Urine Glucose (UA) Urine Ketones Urine Blood Urine Nitrite Urine Bilirubin Urine Urobilinogen Ur Leukocyte Esterase Urine WBC (Auto) Urine RBC (Auto) U Hyaline Cast (Auto) U Epithel Cells (Auto) Urine Bacteria (Auto) WBC Casts Urine Yeast Medications Administered Current Inpatient Medications Heparin Sodium (Porcine) (Heparin Sod 100 Unit/Ml Flush) 5 ml FLUSH PRN PRN PRN Reason: Flush Stop: 12/20/19 23:44 Last Admin: 11/21/19 02:01 Dose: 5 ml Documented by: Piperacillin Sod/Tazobactam (Sod 3.375 gm/ Dextrose) 115 mls @ 28.75 mls/hr IV Q8H MAYNOR; Protocol Stop: 12/01/19 05:59 Last Admin: 11/21/19 13:46 Dose: 28.8 mls/hr Documented by: Potassium Chloride/Sodium Chloride (Normal Saline W/20 Meq Kcl) 20 meq in 1,000 mls @ 100 mls/hr IV .Q10H MAYNOR Stop: 12/21/19 05:14 Last Infusion: 11/21/19 14:28 Dose: 55 mls/hr Documented by: Miscellaneous Information (Consult) 1 ea N/A UD PRN PRN Reason: Consult Stop: 12/20/19 14:25 Ondansetron HCl (Zofran) 4 mg IV Q6H PRN PRN Reason: Nausea Stop: 12/20/19 23:56 PG Care Time/CCT Total # of Minutes Spent Total Time Spent with Patient: Total time spent is greater than 50% in coordination of care (as documented) at patient's floor/unit and/or counseling patient: Coding Level of Care Code 56910 Subseq Hosp Care Lv 3 Diagnoses Sepsis A41.9; R65.20; N17.9 Acute renal failure type: unspecified Sepsis acute organ dysfunction status: with acute organ dysfunction Sepsis type: sepsis due to unspecified organism Severe sepsis acute organ dysfunction type: acute renal failure Severe sepsis shock status: unspecified 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 Biliary obstruction K83.1 Free intraperitoneal air K66.8 Perforated abdominal viscus R19.8 Paroxysmal atrial fibrillation I48.0 Acute renal insufficiency N28.9 Hypotension I95.9 Acute hypokalemia E87.6 (1) Sepsis Acute renal failure type: unspecified Sepsis acute organ dysfunction status: with acute organ dysfunction Sepsis type: sepsis due to unspecified organism Severe sepsis acute organ dysfunction type: acute renal failure Severe sepsis shock status: unspecified Qualified Code(s): A41.9 - Sepsis, unspecified organism; R65.20 - Severe sepsis without septic shock; N17.9 - Acute kidney failure, unspecified
[2019-11-21] MEDS ORDERED: VANCOMYCIN CONSULT ACTIVE PRN (16:11)
--- NOTE | 2019-11-21 20:05 | Pharmacy Report ---
Pharmacy Abx Initial Consult - Date of Service November 21, 2019 - Pharmacy Dosing Scope Date of Consult: 11/21/19 Consultation requested by: Dr. West Pharmacy is consulted to initiate Vancomycin/Zosyn IV/PO dosing therapy, order appropriate labs and adjust drug dose/frequency. - Subjective The patient is a 84 year old M admitted on 11/20/19 20:43. - Objective Height: 5 ft 11 in Weight: 83.1 kg Vital Signs (Past 12hrs): Vital Signs Temp Pulse Resp BP Pulse Ox 11/21/19 15:02 36.6 C 83 16 89/56 L 98 Lab Results (24hrs): Laboratory Tests (24 Hours) 11/21/19 11/21/19 11/21/19 12:07 12:07 10:37 WBC 3.47 L Creatinine 0.94 1.00 D Est Cr Clr Drug Dosing 62.3 58.6 Micro Results: 11/20/19 14:30 Anaerobic Blood Culture - Pending Blood - Risk Factors for Resistance * Resident in a [facility] or extended-care facility * Hospitalization for 48 hours or more within the past 90 days * Immunocompromised (chemotherapy) * Antimicrobial use within the last 90 days Cefepime,Keflex,& Zosyn - Assessment & Plan Assessment 84 year old M with sepsis due to cholangitis, duodenal tumor likely occluding drainage from biliary duct. Blood cultures growing gram positive cocci & urine culture with gram negative bacilli. * Patient has initially been ordered Vancomycin and it was discontinued. Restarted today and patient had not missed any doses. Renal function has improved since initial dosing. Plan Vancomycin/Zosyn for treatment of sepsis Vancomycin IV * Estimated PK Parameters: Vd 0.7 L/kg, Dixon 0.053 hr-1, t1/2 13 hr * Patient has received loading dose of Vanco 1500 mg(18mg/kg) & 1 dose of 1000mg 18 hrs later * Maintenance dose: 1250 mg IV (15 mg/kg) every 16 hours * Goal trough level : 15 to 20 mcg/mL * Trough level ordered for 11/23/19 @ 0930 Piperacillin/tazobactam * 4.5 g bolus administered over 30 minutes, then 3.375 g IV extended infusion every 8 hours for CrCl greater than 20 mL/min OR every 12 hours for CrCl 20 mL/min or less and dialysis. Pharmacy will continue to follow and will adjust dose/frequency as necessary. Thank you.
[2019-11-22] MEDS ORDERED: VANCOMYCIN HCL 1,250 MG in SODIUM CHLORIDE 0.9% 250 ML IV SCH (02:00)
[2019-11-22] MEDS: NSS + 20MEQ KCL 20 MEQ/1,000 ML BAG IV SCH (02:54)
[2019-11-22] MEDS: PIPERACILLIN/TAZOBACTAM 3.375 GM in DEXTROSE 5% 100 ML IV SCH ×3 (05:16→21:35)
[2019-11-22 06:38] LABS: Creatinine Clr Calc Pharmacy 70.6 ml/min; Est GFR (African American) 93.6; Est GFR (Non-African American) 80.8
[2019-11-22 08:07] LABS: Hemoglobin 8.7 g/dL (14.0-18.0); Mean Corpuscular Hemoglobin 30.3 pg (25-34); Mean Corpuscular Hgb Conc 34.8 g/dL (32-36); Mean Corpuscular Volume 87.1 fL (80-100); Mean Platelet Volume 10.3 fL (7.4-10.4); Nucleated RBC # (auto) 0.04 K/uL (0-0); Nucleated RBC % (auto) 0.8 %; Platelet Count 274 K/uL (130-400); RDW Coefficient of Variation 16.8 % (11.5-14.5); RDW Standard Deviation 51.9 fL (36.4-46.3); Red Blood Count 2.87 M/uL (4.7-6.1); White Blood Count 5.23 K/uL (4.8-10.8)
[2019-11-22 08:18] LABS: Albumin Level 1.7 gm/dl (3.4-5.0); BUN Creatinine Ratio 28.5 (10-20); Creatinine Clr Calc Pharmacy 70.6 ml/min; Est GFR (African American) 93.6; Est GFR (Non-African American) 80.8; Potassium 2.8 mmol/L (3.5-5.1)
[2019-11-22 08:31] LABS: Albumin Globulin Ratio 0.6 (0.9-2); Bilirubin,Total 7.1 mg/dl (0.2-1); Globulin 2.9 gm/dl (2.5-4.0); Total Protein 4.6 gm/dl (6.4-8.2)
[2019-11-22 08:36] LABS: Basophils % (auto) 1.9 %; Eosinophils # (auto) 0.06 K/uL (0-0.5); Eosinophils % (auto) 1.1 %; Immature Granulocytes # (auto) 0.52 K/uL (0.00-0.02); Immature Granulocytes % (auto) 9.9 %; Lymphocytes # (auto) 0.89 K/uL (1.2-3.4); Monocytes # (auto) 0.94 K/uL (0.11-0.59); Neutrophils # (auto) 2.72 K/uL (1.4-6.5); Neutrophils % (auto) 52.1 %
[2019-11-22] MEDS: POTASSIUM ACETATE 20 MEQ in 0.9 % SODIUM CHLORIDE 100 ML IV SCH ×2 (10:25→12:22)
--- NOTE | 2019-11-22 11:31 | Hospitalist Progress Note ---
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 Associated free intraperitoneal air and question of perforated viscus, along with patient being a poor surgical candidate related to those findings. Gastroenterology consulted over the phone by ED, and did not feel that stent placement would be a good option, could not be done with mass plan for hospice bili up to 7.1, alk phos trending up to 675mg (4) Free intraperitoneal air: See above (5) Perforated abdominal viscus: See above (6) Paroxysmal atrial fibrillation: Optimize magnesium and IV fluid rehydration to minimize potential development. (7) Acute renal insufficiency: resolved, Cr down to 0.83 from 1.5 continue IV fluids as he cannot get tube feeds, add D5 (8) Hypotension: Secondary to sepsis and dehydration. For now, continue IV fluids, Zosyn, Vanco Family plans are for the patient to be brought home with hospice if he can be stable (9) Acute hypokalemia: still low at 2.8 give 40mEq of K again today Admission and Anticipated Discharge Date Admission Date: November 20, 2019 Anticipated date of discharge: 11/23/19 Subjective patient resting comfortably he denies abdominal pain, no chest pain, no dyspnea, no fever/chills he feels very weak reviewed labs, WBC normal, Hb 8.7, Na 145, K 2.8, CO2 18, Cr 0.83 blood cultures growing strep, not enterococcus urine culture growing E coli bilirubin going up to 7.1, alk phos went up 675 discussed going home with hospice with the patient, he agrees called his [facility] to discuss situation, she also agrees with home hospice, already has a hospital bed asked case management to arrange for home hospice services tomorrow want the patient and his to have as much time together as they can, she cannot visit Review of Systems Review of Systems: All systems reviewed & are unremarkable except as noted in HPI & below Constitutional: + fatigue and + weakness; no fever Respiratory: no cough and no dyspnea Cardiovascular: no chest pain Gastrointestinal: no abdominal pain, no nausea and no vomiting Physical Exam Constitutional: + ill appearing, + thin, + altered mental status and + lethar gic Eyes: PERRL and normal accommodation; sclerae not anicteric (icterus) ENMT: Nose: + dry nasal mucous membranes Mouth: + dry oral mucous membranes Neck: trachea midline, no thyromegaly Respiratory: normal respiratory effort; no respiratory distress Auscultation: + diminished lung sounds (bases); no rales and no wheezes Cardiovascular: RRR, no murmur, no edema (weak peripheral pulses) Gastrointestinal (Abdomen): Inspection/Auscultation: + abdominal surgical scar and + hypoactive bowel sounds; + abdomen abnormal to inspection (G tube and J tube) Percussion/Palpation: abdomen soft; abdomen nontender and no ascites Musculoskeletal: Head/Neck/Chest: normocephalic and head atraumatic Extremities: + abnormal strength (diffuse weakness) Skin: + turgor decreased and + jaundice Neurologic: patellar DTR's 2+ bilat, sensation intact and PERRL, EOMI, accommodation nl, no face palsy, no dysarthria Lymphatic: no cervical or axillary lymphadenopathy Results & Data ([facility]) Vital Signs (Past 12 Hours) Vital Signs Temp Pulse Resp BP Pulse Ox Pulse Ox 11/22/19 07:26 36.2 C L 95 H 22 90/52 L 98 11/22/19 00:20 98 Laboratory Results Laboratory Results - last 24 hr 11/21/19 11/21/19 11/21/19 12:07 12:07 12:07 WBC 3.47 L RBC 2.67 L Hgb 8.1 L Hct 23.4 L MCV 87.6 MCH 30.3 MCHC 34.6 RDW Std Deviation 51.5 H RDW Coeff of Vineet 16.5 H Plt Count 241 MPV 10.8 H Immature Gran % (Auto) Neut % (Auto) Lymph % (Auto) [place] % (Auto) Eos % (Auto) Baso % (Auto) Immature Gran # (Auto) Neut # (Auto) Lymph # (Auto) [place] # (Auto) Eos # (Auto) Baso # (Auto) Absolute Nucleated RBC 0.04 H Nucleated RBC % (auto) 1.1 Neutrophils % (Manual) 58.4 Lymphocytes % (Manual) 24.3 Monocytes % (Manual) 12.2 Eosinophils % (Manual) 1.7 Metamyelocytes % (Man) 1.7 Myelocytes % (Man) 1.7 Neutrophils # (Manual) 2.03 Total Absolute Neuts 2.03 Lymphocytes # (Manual) 0.84 L Total Abs Lymphocytes 0.84 L Monocytes # (Manual) 0.42 Eosinophils # (Manual) 0.06 Metamyelocytes # (Man) 0.06 H Myelocytes # (Manual) 0.06 H Toxic Granulation 2+ Dohle Bodies 2+ Target Cells 1+ Sodium 141 D Potassium 2.4 L* Chloride 116 H Carbon Dioxide 18 L Anion Gap 7.0 BUN 31 H Creatinine 0.94 Est Cr Clr Drug Dosing 62.3 Est GFR ( Amer) 85.9 Est GFR (Non-Af Amer) 74.2 BUN/Creatinine Ratio 32.9 H Glucose 72 Lactate 1.2 Calcium 7.7 L Total Bilirubin 6.6 H Direct Bilirubin 5.4 H AST 58 H ALT 63 Alkaline Phosphatase 581 H Total Protein 4.6 L D Albumin 1.9 L Globulin Albumin/Globulin Ratio 11/22/19 11/22/19 11/22/19 05:41 05:45 05:45 WBC 5.23 RBC 2.87 L Hgb 8.7 L Hct 25.0 L MCV 87.1 MCH 30.3 MCHC 34.8 RDW Std Deviation 51.9 H RDW Coeff of [place]et 16.8 H Plt Count 274 MPV 10.3 Immature Gran % (Auto) 9.9 Neut % (Auto) 52.1 Lymph % (Auto) 17.0 [place] % (Auto) 18.0 Eos % (Auto) 1.1 Baso % (Auto) 1.9 Immature Gran # (Auto) 0.52 H Neut # (Auto) 2.72 Lymph # (Auto) 0.89 L [place] # (Auto) 0.94 H Eos # (Auto) 0.06 Baso # (Auto) 0.10 Absolute Nucleated RBC 0.04 H Nucleated RBC % (auto) 0.8 Neutrophils % (Manual) Lymphocytes % (Manual) Monocytes % (Manual) Eosinophils % (Manual) Metamyelocytes % (Man) Myelocytes % (Man) Neutrophils # (Manual) Total Absolute Neuts Lymphocytes # (Manual) Total Abs Lymphocytes Monocytes # (Manual) Eosinophils # (Manual) Metamyelocytes # (Man) Myelocytes # (Manual) Toxic Granulation Dohle Bodies Target Cells Sodium 145 Potassium 2.8 L D Chloride 120 H Carbon Dioxide 18 L Anion Gap 8.0 BUN 24 H Creatinine 0.83 0.83 Est Cr Clr Drug Dosing 70.6 70.6 Est GFR ( Amer) 93.6 93.6 Est GFR (Non-Af Amer) 80.8 80.8 BUN/Creatinine Ratio 28.5 H Glucose 62 L Lactate Calcium 8.0 L Total Bilirubin 7.1 H Direct Bilirubin AST 71 H ALT 70 Alkaline Phosphatase 675 H Total Protein 4.6 L Albumin 1.7 L Globulin 2.9 Albumin/Globulin Ratio 0.6 L Microbiology 11/20/19 14:35 Blood Aerobic Blood Culture - Preliminary Gamma strep not enterococcus 11/20/19 14:35 Blood Anaerobic Blood Culture - Preliminary Gamma strep not enterococcus 11/20/19 14:30 Blood Aerobic Blood Culture - Preliminary Gamma strep not enterococcus 11/20/19 14:30 Blood Anaerobic Blood Culture - Final 11/20/19 15:55 Urine,Indwelling Cath Urine Culture - Preliminary Escherichia coli Medications Administered Current Inpatient Medications Heparin Sodium (Porcine) (Heparin Sod 100 Unit/Ml Flush) 5 ml FLUSH PRN PRN PRN Reason: Flush Stop: 12/20/19 23:44 Last Admin: 11/21/19 02:01 Dose: 5 ml Documented by: Piperacillin Sod/Tazobactam (Sod 3.375 gm/ Dextrose) 115 mls @ 28.75 mls/hr IV Q8H MAYNOR; Protocol Stop: 12/01/19 05:59 Last Infusion: 11/22/19 09:14 Dose: Infused Documented by: Vancomycin HCl 1,000 mg/ (Sodium Chloride) 270 mls @ 125 mls/hr IV Q12H MAYNOR; Protocol Stop: 12/06/19 14:59 Potassium Acetate 20 meq/ (Sodium Chloride) 110 mls @ 55 mls/hr IV Q2H [facility]NOR Stop: 11/22/19 13:59 Last Admin: 11/22/19 10:25 Dose: 55 mls/hr Documented by: Dextrose/Sodium Chloride (D5w And 1/2nss) 1,000 mls @ 80 mls/hr IV .[id number] [facility]NOR Stop: 12/22/19 10:59 Miscellaneous Information (Consult) 1 ea N/A UD PRN PRN Reason: Consult Stop: 12/20/19 14:25 Miscellaneous Information (Consult) 1 ea N/A UD PRN PRN Reason: Consult Stop: 12/21/19 16:10 Ondansetron HCl (Zofran) 4 mg IV Q6H PRN PRN Reason: Nausea Stop: 12/20/19 23:56 PG Care Time/CCT Total # of Minutes Spent Total Time Spent with Patient: Total time spent is greater than 50% in coordination of care (as documented) at patient's floor/unit and/or counseling patient: Coding Level of Care Code 26047 Subseq Hosp Care Lvl 3 Diagnoses Sepsis A41.9; R65.20; N17.9 Acute renal failure type: unspecified Sepsis acute organ dysfunction status: with acute organ dysfunction Sepsis type: sepsis due to unspecified organism Severe sepsis acute organ dysfunction type: acute renal failure Severe sepsis shock status: unspecified 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 Biliary obstruction K83.1 Free intraperitoneal air K66.8 Perforated abdominal viscus R19.8 Paroxysmal atrial fibrillation I48.0 Acute renal insufficiency N28.9 Hypotension I95.9 Acute hypokalemia E87.6 (1) Sepsis Acute renal failure type: unspecified Sepsis acute organ dysfunction status: with acute organ dysfunction Sepsis type: sepsis due to unspecified organism Severe sepsis acute organ dysfunction type: acute renal failure Severe sepsis shock status: unspecified Qualified Code(s): A41.9 - Sepsis, unspecified organism; R65.20 - Severe sepsis without septic shock; N17.9 - Acute kidney failure, unspecified
[2019-11-22] MEDS: D5W AND 1/2NSS 1,000 ML IV SCH (12:15)
--- NOTE | 2019-11-22 13:21 | Palliative Care Progress Note ---
Date of Service November 22, 2019 Assessment & Plan (1) Goals of care, counseling/discussion: -Patient states he is comfortable. -Plan is for patient to return home with [facility]. -Patient is comfortable, currently on no comfort meds. If he is having pain, use Roxanol PRN. -Nothing further to add at this time, please contact me with any further palliative care needs. (2) Duodenal adenocarcinoma: (3) Free intraperitoneal air: (4) Dehydration: (5) Biliary obstruction: Subjective Patient is awake today. He told me "Good, I'm comfortable," when asked how he is feeling. Review of Systems Review of Systems: no pain no SOB no N/V Physical Exam Constitutional: + ill appearing and comfortable; no acute distress ENMT: Mouth: + dry oral mucous membranes Respiratory: normal respiratory effort, lungs clear to auscultation Cardiovascular: Rate/Rhythm: regular rate and regular rhythm Extremities: + edema (trace BLE) Gastrointestinal (Abdomen): Percussion/Palpation: abdomen soft; abdomen nontender Neurologic: moves all extremities and awake Results & Data Vital Signs (Past 12 Hours) Vital Signs Temp Pulse Resp BP Pulse Ox 11/22/19 07:26 36.2 C L 95 H 22 90/52 L 98 PG Care Time/CCT Total # of Minutes Spent Total Time Spent with Patient: Total time spent is greater than 50% in coordination of care (as documented) at patient's floor/unit and/or counseling patient: 25 minutes Coding Level of Care Code 97667 Subseq Hosp Care Lvl 2 Diagnoses Goals of care, counseling/discussion Z71.89 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 Free intraperitoneal air K66.8 Dehydration E86.0 Biliary obstruction K83.1 Time Spent (min) 25
[2019-11-22] MEDS: VANCOMYCIN HCL 1,000 MG in SODIUM CHLORIDE 0.9% 250 ML IV SCH (15:46)
[2019-11-23] MEDS: D5W AND 1/2NSS 1,000 ML IV SCH ×2 (03:23→13:37)
[2019-11-23] MEDS: VANCOMYCIN HCL 1,000 MG in SODIUM CHLORIDE 0.9% 250 ML IV SCH ×2 (03:23→14:29)
[2019-11-23 05:41] LABS: Creatinine Clr Calc Pharmacy 62.3 ml/min; Est GFR (African American) 85.9; Est GFR (Non-African American) 74.2
[2019-11-23] MEDS: PIPERACILLIN/TAZOBACTAM 3.375 GM in DEXTROSE 5% 100 ML IV SCH ×2 (05:52→13:37)
[2019-11-23] MEDS ORDERED: VANCOMYCIN TROUGH ONE ×2 (09:30→14:30)
--- NOTE | 2019-11-23 12:47 | Discharge Summary ---
Date of Service November 23, 2019 Admission HPI Per Admitting Provider The patient is an 84-year-old male with a past medical history including duodenal adenocarcinoma, paroxysmal atrial fibrillation, left bundle branch block, acute renal insufficiency, biliary obstruction, hyponatremia, h ypophosphatemia, hyperkalemia, pericardial effusion, chronic systolic CHF, carcinoma of duodenum, hyperlipidemia, hypertension and severe protein calorie malnutrition. He is brought to the emergency department after being noticed at the [facility] today to have increased fatigue, generalized weakness, new onset jaundice and hypotension. He was noted in the emergency department to be jaundiced, dehydrated, hypotensive, and head CT of abdomen pelvis suggestive of personal perforated viscus with moderate volume of free intraperitoneal air, with perforated viscus being the diagnosis of exclusion. There was also seen extensive pneumatosis intestinalis throughout the colon with surrounding pericolonic inflammation, with colonic ischemia being the diagnosis of exclusion. Mesenteric venous gas was present in the upper abdomen. A large mass lesion was again seen involving the proximal jejunum, which was likely increased in size from 09/04/2019 and may now invade the head of the pancreas. There is moderate intrahepatic biliary ductal dilatation and pancreatic duct dilatation, new from 09/04/2019 and likely related to an obstructing mass lesion. The gallbladder is markedly distended without inflammation. There were gastrostomy and jejunostomy tubes in place. Calls have been made to gastroenterology, regarding possibility of stent placement, as it was question to whether the presence of gas may been related to a displaced jejunostomy tube of a few weeks ago. However, significant pericolonic inflammation noted would suggest a more acute process such as perfor ated viscus, along with the patient's clinical presentation of significant hypotension and altered mentation. Principal Diagnosis Sepsis due to cholangitis Discharge Exam Constitutional + ill appearing, + thin, + altered mental status and + lethargic Eyes PERRL and normal accommodation; sclerae not anicteric (icterus) ENMT Nose: + dry nasal mucous membranes Mouth: + dry oral mucous membranes Neck trachea midline, no thyromegaly Respiratory normal respiratory effort; no respiratory distress Auscultation: + diminished lung sounds (bases); no rales and no wheezes Cardiovascular RRR, no murmur, no edema (weak peripheral pulses) Gastrointestinal (Abdomen) Inspection/Auscultation: + abdominal surgical scar and + hypoactive bowel sounds; + abdomen abnormal to inspection (G tube and J tube) Percussion/Palpation: abdomen soft; abdomen nontender and no ascites Musculoskeletal Head/Neck/Chest: normocephalic and head atraumatic Extremities: + abnormal strength (diffuse weakness) Skin + turgor decreased and + jaundice Neurologic patellar DTR's 2+ bilat, sensation intact and PERRL, EOMI, accommodation nl, no face palsy, no dysarthria Lymphatic no cervical or axillary lymphadenopathy Discharge Data Allergies Allergy/AdvReac Type Severity Reaction Status Date / Time No Known Allergies Allergy Verified 11/20/19 15:36 Consultations 11/20/19 18:29 ED Decision to Admit Stat 11/20/19 23:57 Consult Case Management - Discharge Planning Routine Consult Palliative Care Routine Ordered Studies 11/20/19 14:29 CT abd pelvis wo con Stat Hospital Course (1) Sepsis: due to cholangitis, duodenal tumor likely occluding drainage from biliary duct lesion cannot be stented, discussed with GI treated with Zosyn, IV fluids while here no plans for antibiotics on discharge, comfort care only bili up to 7.1, alk phos elevated at 675 on 11/21 leukopenia, lactic acid normal 11/20 blood cultures growing streptococcus mitis/oralis urine culture growing E coli and staph aureus continue Zosyn and Vanco while admitted, stop on discharge very poor prognosis, continue treatment as is, would not escalate to ICU plan for hospice at home today will transport via litter van extensively updated (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 Associated free intraperitoneal air and question of perforated viscus, along with patient being a poor surgical candidate related to those findings. Gastroenterology consulted over the phone by ED, and did not feel that stent placement would be a good option, could not be done with mass plan for hospice bili up to 7.1, alk phos trending up to 675mg on 11/21 (4) Free intraperitoneal air: See above (5) Perforated abdominal viscus: See above (6) Paroxysmal atrial fibrillation: Optimize magnesium and IV fluid rehydration to minimize potential development. (7) Acute renal insufficiency: resolved, Cr down to 0.83 from 1.5 continue IV fluids as he cannot get tube feeds, add D5 no further fluids, no tube feeds planned (8) Hypotension: Secondary to sepsis and dehydration. For now, continue IV fluids, Zosyn, Vanco Family plans are for the patient to be brought home with hospice if he can be stable (9) Acute hypokalemia: still low at 2.8 on 11/21 give 40mEq of K again on 11/21 Total Time Total Time Spent Total Time Spent (In Minutes): 31 minutes Total Time Includes: Examination of the Patient, Discharge Planning, Medication Reconciliation and Other (communication with family) Discharge Plan Discharge Items Patient Disposition: Hospice - Home Reason For Visit: PERFORATED VISCUS, HYPOTENSION, BILIARY OBSTRUCTIO Discharge Diagnosis: Biliary obstruction, cholangitis Possible perforated bowel Sepsis Bacteremia Condition on Discharge: Serious Goals: hospice, comfort care at home Activity: As commented below Activity Comment: bedrest Non-emergency contact: Primary Care Provider Call non-emergency contact if: you have any medication questions Follow-up/Referrals: Annia Dyer MD [Primary Care Provider] - Diet: Nothing by Mouth Addtl Attending Provider Instructions: Medications: everything stopped except for comfort, use Tylenol and Compazine Biliary obstruction, cholangitis, sepsis, possible perforated bowel no intervention possible for the biliary obstruction, slowly getting worse this is due to the duodenal cancer the biliary fluid is infected, infection spread to blood stream recommend going home on hospice complete bedrest, no tube feeds as this will likely cause abdominal pain, discomfort, prolong dying process [facility] has been arranged Pending Studies at Discharge: No Stand-Alone Forms: [facility] Medications and DC Order Prescriptions: Continued acetaminophen 500 mg/15 mL Liquid 1,000 mg feeding tube Q8H PRN (Reason: Mild Pain (Scale Score 1-4)) RF: 0 prochlorperazine maleate [Compazine] 10 mg tablet 25 mg PO UD PRN (Reason: Nausea) RF: 0 Discontinued (DME) CPAP Machine Misc See Dose Instructions .ROUTE .MEDSUPPLY Qty: 1 RF: 0 (DME) Wheeled Walker Misc See Rx Instructions .ROUTE .MEDSUPPLY Qty: 1 RF: 0 simvastatin 10 mg tablet 10 mg feeding tube DAILY RF: 0 sodium bicarbonate 650 mg tablet 650 mg PO TID RF: 0 lansoprazole [Prevacid SoluTab] 30 mg tablet,disintegrat, delay rel 30 mg feeding tube DAILY RF: 0 mupirocin 2 % ointment 1 applic TOPICAL UD RF: 0 Peptamen 1.5 0.068 gram- 1.5 kcal/mL Liquid See Rx Instructions .ROUTE .COMPLEX Qty: 6000 RF: 0 sennosides [senna] 8.8 mg/5 mL Syrup 8.8 mg feeding tube BID PRN (Reason: Constipation) Qty: 0 RF: 0 Discharge Orders: Discharge Order (Routine); Ordered 11/23/19 Ordered By: dAolph West Admission Data Admit Date/Time: 11/20/19 20:43 Attending Provider: Adolph West Admit Provider: Froy Salvador Primary Care Provider: Annia Dyer Other Providers: Malik Donaldson ; Stephanie Lama ; [facility] Other Interventions: Discharge Summary Assessment (RN) Last Done: 11/23/19 10:43 Coding Level of Care Code D/C Day Management >30 mins Diagnoses Sepsis A41.9; R65.20; N17.9 Acute renal failure type: unspecified Sepsis acute organ dysfunction status: with acute organ dysfunction Sepsis type: sepsis due to unspecified organism Severe sepsis acute organ dysfunction type: acute renal failure Severe sepsis shock status: unspecified 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 Biliary obstruction K83.1 Free intraperitoneal air K66.8 Perforated abdominal viscus R19.8 Paroxysmal atrial fibrillation I48.0 Acute renal insufficiency N28.9 Hypotension I95.9 Acute hypokalemia E87.6
== END 2019-11-23 16:07 | disposition hospice, home (50) | DRG 871 ==
LOC: ED 14:05 → SUATTDRO 20:43 → 3E 20:43